=== PATIENT | male | born 1965 | race Caucasian/White ===

== ENCOUNTER 2024-03-06 07:46 | Inpatient (IN) ==
--- OUTSIDE RECORDS SUMMARY | 2024-03-06 08:00 | External Medical Summary | Summary of Care ---
Author Name Unknown Organization [facility] Address [address] [place] [address] Phone [phone] Care Team Providers Care Apartment Maintenance Worker Name Role Phone Julio Syed MD Primary Care Provider + Reason for Visit * Reason Onset Date Comments Appointment 03/03/2024 Encounter Details Date Type Department Care Team ([facility] st Contact Info) Description 03/03/2024 Telephone Family Practice [facility] [address] [facility] [place] [address] Julio Syed MD [address] [facility] [place] [address] Appointment Allergies No known active allergiesdocumented as of this encounter (statuses as of 03/04/2024) Medications Medication Sig Dispensed Refills Start Date End Date Status Sodium Chloride 1 GM Oral Tablet TAKE 1 TABLET BY MOUTH 3 TIMES DAILY 270 Tablet 03/28/2023 Active amLODIPine Besylate 10 MG Oral Tablet (Norvasc)Indications: Essential hypertension with goal blood pressure less than 140/90 Take 1 Tablet by mouth in the morning. 90 Tablet 3 09/19/2023 Active Losartan Potassium 100 MG Oral Tablet (Cozaar)Indications:E ssential hypertension with goal blood pressure less than 140/90 Take 1 Tablet by mouth in the morning. 90 Tablet 3 09/19/2023 Active Urea 15 GM Oral Packet (Ure-Na) Take 15 g by mouth in the morning and 15 g before bedtime. 60 Packet 5 12/14/2023 Active Torsemide 20 MG Oral Tablet (Demadex) Take 1 Tablet by mouth in the morning and 1 Tablet before bedtime. 60 Tablet 5 12/14/2023 Active Potassium Chloride Orquidea ER 20 MEQ Oral Tablet Extended ReleaseIndications:Hy pokalemia Take 1 Tablet by mouth in the morning. Take 3 tablets today-02/01/24-Th en 1 tablet daily.. 33 Tablet 5 02/01/2024 Active documented as of this encounter (statuses as of 03/04/2024) Active Problems Problem Noted Date Diagnosed Date Hyponatremia 11/03/2023 Obstructive sleep apnea 08/08/2023 Overweight (BMI 25.0-29.9) 09/22/2022 Chronic insomnia 09/22/2022 Routine general medical exam ination at a health care facility 03/26/2015 Overview: 2020 colon elsy 5y 12/11/20 Admit to [place] for hyponatremia? 05/06 multiple polyps colonoscopy--tubular adenoma. Elsy 5y HTN, goal below 130/80 03/26/2015 documented as of this encounter (statuses as of 03/04/2024) Resolved Problems Problem Noted Date Diagnosed Date Resolved Date Nocturia 03/05/2020 09/20/2022 Overview: 2-3x/night 2019. Declines Rx documented as of this encounter (statuses as of 03/04/2024) Immunizations Name Administration Dates Next Due COVID-19 mRNA, LNP-s, No Pre serve, 2-Dose Series (HealthTap) 07/05/2021,11/29/2020,11/15/2020 TD - Tetanus/Diptheria (ADULT) 03/22/1995 TDAP (age 10 and older)(Boostrix) 03/26/2015 Zoster Vaccine Recombinant (Shingrix) 06/08/2020 ,03/05/2020 documented as of this encounter Social History Tobacco Use Types Packs/Day Years Used Date Smoking Tobacco: Never Smokeless Tobacco: Current Alcohol Use Standard Drinks/Week Comments Yes 0 (1 standard drink = 0.6 oz pur e alcohol) social. 6pack/weekend PHQ-2 Answer Date Recorded PHQ Adult Total Score 0 09/19/2023 Hunger Vital Sign Answer Date Recorded Within the past 12 months, y ou worried that your food would run out before you got the money to buy more. Never true 09/19/19 24 Within the past 12 months, t he food you bought just didn't last and you didn't have money to get more. Never true 09/19/2023 Childcare Answer Date Recorded Do you feel overwhelmed with taking care of a child, family member or friend? No 09/19/2023 Does your family need help f inding childcare? (Household - for ages 0-17 years) Not on file 09/19/2023 Clothing Answer Date Recorded Have you been unable to get clothing when it was really needed? No 09/19/2023 Is your family able to get c lothes or diapers when needed? (Household - for ages 0-17 years) Not on file 09/19/2023 Personal Safety Answer Date Recorded Do you feel unsafe or have concerns for your saf ety? No 09/19/2023 Do you have concerns for you r family's safety? (Household - for ages 0-17 years) Not on file 09/19/2023 Utilities Answer Date Recorded Do you have trouble paying y our heating, water, or electric bill? No 09/19/2023 Is your family able to pay t he heat, water, or electric bill? (Household - for ages 0-17 years) Not on file 09/19/2023 Does your family have access to good internet? (Household - for ages 0-17 years) Not on file 09/19/2023 Employment Status Answer Date Recorded Are you unemployed or without regular income? No 09/19/2023 Does the household have a re gular source of income? (Household - for ages 0-17 years) Not on file 09/19/2023 Social Connections Answer Date Recorded How often do you feel lonely or isolated from th ose around you? Never 09/19/2023 Financial Resource Strain Answer Date R ecorded Do you have any trouble payi ng for your medications, or do you think you might in the future? No 09/19/2023 Does your family have troubl e paying for medicine? (Household - for ages 0-17 years) Not on file 09/19/2023 Transportation Needs Answer Date Record ed READ ONLY Do you have troubl e getting a ride to medical visits or work? Never True 09/19/2023 Does your family have a hard time getting a ride to doctors visits? (Household - for ages 0-17 years) Not on file 09/19/2023 Has lack of transportation k ept you from medical appointments, meetings, work, or from getting things needed for daily living? Check all that apply. (Adult - for ages 18 years and over) Not on file 09/19/2023 Do you (or your family) have trouble finding or paying for a ride (transportation)? (Household - for ages 0-17 years) Not on file 09/19/2023 Housing Stability Answer Date Recorded Do you currently live in a s helter or have no steady place to sleep at night? No 09/19/2023 READ ONLY Do you think you a re at risk of becoming homeless? No 09/19/2023 Does your family worry about paying for your home or becoming homeless? (Household - for ages 0-17 years) Not on file 0 09/19/2023 Are you homeless or worried that you might be in the future? (Adult - for ages 18 years and over) Not on file Are you (or your family) alessandro eless or worried that you might be in the future? (Household - for ages 0-17 years) Not on file Food Insecurity Answer Date Recorded Do you need food for this week? No 09/19/2023 Are you able to get enough f ood for your family? (Household - for ages 0-17 years) Not on file 09/19/2023 Does your family need food t his week? (Household - for ages 0-17 years) Not on file 09/19/2023 Do you always have enough fo od for your family? (Household - for ages 0-17 years) Not on file 09/19/2023 Sex and Gender Information Value Date Recorded Sex Assigned at Male 04/02/2023 10:43 AM EDT Gender Identity Male 04/02/2023 10:43 AM EDT Sexual Orientation Straight 04/02/2023 10 :43 AM EDT Job Start Date Occupation Industry Not on file Not on file Not on file documented as of this encounter Miscellaneous Notes * Telephone Encounter - Beverly Louise LPN - 03/04/2024 3:48 PM EDT Patient's is calling. Informed of Dr. Syed's message. Verbalized understanding. Placed with MATHIEU Davila on at 9 a.m. * Telephone Encounter - Raegan Odell LPN - 03/04/2024 3:23 PM EDT NO answer on either pt or phone-- LM on both to get labs done lupe and call back to schedule appt. * Telephone Encounter - Jammie Yee OSA - 03/04/2024 1:08 PM EDT FYI. No one has any openings for a few weeks Please advise * Telephone Encounter - Julio Syed MD - 03/04/2024 1:06 PM EDT Call /patient. I don't have openings this week, so would recommend seeing one of my partners that has openings. He has a history of hospitalization for low sodium--let's recheck that this week--can stop by todayfor blood work before 5pm or tomorrow. * Telephone Encounter - Clara Moyer RN - 03/04/2024 12:19 PM EDT Called pt's . States Nahum was restless, had difficulty sleeping last night. Seem unfocused. would like to know if there is something that Dr Syed can do. I asked if pt was safe and said he was ok. * Telephone Encounter - Jammie Yee OSA - 03/04/2024 11:52 AM EDT Nothing open per the call center, please triage and call pt * Telephone Encounter - Mindi Trujillo OSA - 03/03/2024 1:34 PM EDT No Appointments Available Patient declined appointments?: No What Visit Type is needed? Acute If Acute Visit Type is needed, were surrounding clinics offered to patient (Yes/No)? Yes Was patient offered appointments with other available providers (Yes/No)? Yes See Call Details? (Yes or No): No Pt's called. Pt is having high anxiety. Pt can't sleep. Pt only wants to see Dr. Syed. documented in this encounter Plan of Treatment Upcoming Encounters Date Type Department Care Team (Late st Contact Info) Description 03/06/2024 9:00 AM EDT Office Visit Family Practice [facility] [address] [place] [address] Emerita Valencia CRNP [address] [place] [address] 09/02/2024 11:40 AM EST Office Visit Nephrology, [place] [address] [place] [address] Rc Ugalde MD [address] [facility] [place] [address] Scheduled Orders Name Type Priority Associated Diagnoses Orde r Schedule TSH WITH FREE T4 IF INDICATED Lab Routine Hyponatremia Expected: 03/04/2024 (Approximate), Expires: 03/04/2025 BASIC METABOLIC PANEL Lab Routine Hyponatremia Expected: 03/04/2024 (Approximate), Expires: 03/04/2025 Scheduled Procedures Name Priority Associated Diagnoses Date/Ti me COLONOSCOPY FLEXIBLE PROXIMAL DIAGNOSTIC Recall History of colon polyps Health Maintenance Due Date Last Done Comments Hepatitis C Screening 1982 Hepatitis B Vaccine (1 of 3 - 19+ 3-dose series) 1983 Cologuard 2009 Fecal Occult Blood Test 2009 Sigmoidoscopy 2009 COVID-19 Vaccine ( season) 2023 07/05/2021, 11/29/2020, 11/15/2020 Albumin/Creatinine Ratio 02/04/2024 02/03/2021, 08/24 Influenza Vaccine (FLU shot) (#1) 2024 Depression Screening 09/19/2024 09/19/2023 GFR 01/30/2025 01/31/2024, 11/21, 10/09/2023, Additional history exists DTaP,Tdap,and Td Vaccines (2 - Td or Tdap) 03/26/2025 03/26/2015, 03/22/1995 Colonoscopy 05/28/2025 05/28/2020, 12/2019, 05/14/2015, Additional history exists Colorectal Cancer Screening 05/28/2025 Diabetes Screening 01/30/2027 01/31/2024, 0 12/12/2023, 10/09/2023, Additional history exists Lipid Panel 09/24/2028 09/25/2023, 12/22, 03/09/2020, Additional history exists RETIRED - COLONOSCOPY-EVERY 5 YRS AGES 18-100 Discontinued 05/28/2020, 05/28/2020, 05/14/2015, Additional history exists Zoster Vaccines Completed 06/08/2020, 03/05/2020 HPV (Gardasil) Vaccine Aged Out No lo nger eligible based on patient's age to complete this topic MENINGOCOCCAL (MENACTRA/MENVEO) Aged Out No longer eligible based on patient's age to complete this topic Pneumococcal Vaccine: Pediatrics (0 to 5 Years) and At-Risk Patients (6 to 64 Years) Aged Out No longer eligible based on patient's age to complete this topic documented as of this encounter Medical Devices Not on filedocumented as of this encounter Visit Diagnoses Diagnosis Hyponatremia- Primary Hyposmolality and/or hyponatremia documented in this encounter Care Teams Apartment Maintenance Worker Relationship Specialty Start Date End Date Julio Syed MD [address] [place] [address] PCP - General Family Medicine 03/26/15 documented as of this encounter
--- OUTSIDE RECORDS SUMMARY | 2024-03-06 08:00 | External Medical Summary | Summary of Care ---
Author Name Unknown Organization [facility] Address [address] [place] [address] Phone [phone] Care Team Providers Care Loading Dock Helper Name Role Phone Julio Syed MD Primary Care Provider + Reason for Visit * Reason Comments Outpatient Testing Encounter Details Date Type Department Care Team (Late st Contact Info) Description 03/05/2024 7:40 AM EDT Laboratory Laboratory, [facility] [address] [place] [phone] [facility] [address] [place] [address] Hypokalemia; Hyponatremia; MyCode Research Other*[id number] Allergies No known active allergiesdocumented as of this encounter (statuses as of 03/05/2024) Medications Medication Sig Dispensed Refills Start Date [...] as of this encounter (statuses as of 03/05/2024) Active Problems Problem Noted Date Diagnosed Date Hyponatremia 11/03/2023 Obstructive sleep apnea 08/08/2023 Overweight (BMI 25.0-29.9) 09/22/2022 Chronic insomnia 09/22/2022 Routine general medical exam ination at a health care facility 03/26/2015 Overview: 2020 colon elsy 5y 12/11/20 Admit to [place] for hyponatremia? 05/06 multiple polyps colonoscopy--tubular adenoma. Elsy 5y HTN, goal below 130/80 03/26/2015 documented as of this encounter (statuses as of 03/05/2024) Resolved Problems Problem Noted Date Diagnosed Date Resolved Date Nocturia 03/05/2020 09/20/2022 Overview: 2-3x/night 2019. Declines Rx documented as of this encounter (statuses as of 03/05/2024) Immunizations Name Administration Dates Next Due COVID-19 mRNA, LNP-s, No Pre serve, 2-Dose Series (Pfizer) 07/05/2021,11/29/2020,11/15/2020 TDAP (age 10 and older)(Boostrix) 03/26/2015 Zoster [...] on file documented as of this encounter Plan of Treatment Upcoming Encounters Date Type Department Care Team (Late st Contact Info) Description 03/06/2024 9:00 AM EDT Office Visit Family Practice [facility] [address] [place] [address] Emerita Valencia CRNP [address] [place] [address] 09/02/2024 11:40 AM EST Office Visit Nephrology, [place] [address] [facility] [place] [address] Rc Ugalde MD 200 [facility] [place] [address] Pending Results Name Type Priority Associated Diagnoses Date /Time RENAL FUNCTION PANEL Lab Routine Hypokalemia Hyponatremia 03/05/2024 7:44 AM EDT Scheduled Orders Name Type Priority Associated Diagnoses Orde r Schedule MYCODE INITIAL ADULT-PINK Lab Routine MyCode Research Other*[id number] Ordered: 03/05/2024 MYCODE SST1 Lab Routine MyCode Research Other*[id number] Ordered: 03/05/2024 MYCODE SST2 Lab Routine MyCode Research Other*[id number] Ordered: 03/05/2024 Scheduled Procedures Name Priority Associated Diagnoses Date/Ti [...] as of this encounter Visit Diagnoses Diagnosis Hypokalemia Hypopotassemia Hyponatremia Hyposmolality and/or hyponatremia MyCode Research Other*[id number] documented in this encounter Care Teams Loading Dock Helper Relationship Specialty Start Date End Date Julio Syed MD [address] [place] [address] PCP - General Family Medicine 03/26/15 documented as of this encounter
--- OUTSIDE RECORDS SUMMARY | 2024-03-06 08:00 | External Medical Summary ---
Author Name Unknown Address Unknown Organization [id number]:[facility] [place] [address] [place] [address] Laboratory Report Ordering Provider Test Date Status RAMON PERKINS 03/05/2024 07:44:08 Final Observation Date Value Abnormality Reference (Units ) Status BUN 03/05/2024 07:44:08 20 6-20 (mg/dL) Final Creatinine 03/05/2024 07:44:08 0.8 0.6-1.2 (mg/dL) Final Glomerular filtration rate/1.73 sq M.predicted [Volume Rate/Area] in Serum, Plasma or Blood by Creatinine-based formula (CKD-EPI) 03/05/2024 07:44:08 >90 >=60 (mL/min) Final eGFR is calculated based on the CKD-EPI 2020 equation. Sodium 03/05/2024 07:44:08 122 Below low normal 135 -146 (mmol/L) Final Potassium 03/05/2024 07:44:08 4.3 3.5-5.1 (m mol/L) Final Cl 03/05/2024 07:44:08 80 Below low normal 98- 107 (mmol/L) Final CO2 03/05/2024 07:44:08 26 22-32 (mmo l/L) Final Anion gap 03/05/2024 07:44:08 16 Above high normal 7- 15 (mmol/L) Final Glucose 03/05/2024 07:44:08 111 70-120 (mg /dL) Final Calcium 03/05/2024 07:44:08 10.0 8.4-10.2 ( mg/dL) Final Albumin 03/05/2024 07:44:08 5.1 Above high normal 3. 8-5.0 (g/dL) Final Phosphate 03/05/2024 07:44:08 4.4 2.5-4.8 (m g/dL) Final Performing Location [facility] [place] [address] [place] [address]
--- OUTSIDE RECORDS SUMMARY | 2024-03-06 08:01 | External Medical Summary ---
Author Name Unknown Address Unknown Organization [id number]:[facility] [place] - [address] [place] [address] Laboratory Report Ordering Provider Test Date Status OSCAR PERKINSCORA 12/12/2023 09:15:57 Final Observation Date Value Abnormality Reference (Units ) Status Osmolality, Urine 12/12/2023 09:15:57 181 50 -1200 (mOsm/kg) Final Performing Location [facility] [place] - [address] [place] [address]
--- OUTSIDE RECORDS SUMMARY | 2024-03-06 08:01 | External Medical Summary | Summary of Care ---
Author Name Unknown Organization [facility] Address [address] [place] [address] Phone [phone] Care Team Providers Care Grocery Store Associate Name Role Phone Julio Syed MD Primary Care Provider + Reason for Visit * Reason Comments Outpatient Testing Encounter Details Date Type Department Care Team (Late st Contact Info) Description 01/31/2024 8:50 AM EDT Laboratory Laboratory, [facility] [address] [place] [phone] [facility] [address] [place] [address] HTN, goal below 130/80; Hyponatremia Allergies No known active allergiesdocumented as of this encounter (statuses as of 01/31/2024) Medications Medication Sig Dispensed Refills Start Date [...] before bedtime. 60 Tablet 5 12/14/2023 Active documented as of this encounter (statuses as of 01/31/2024) Active Problems Problem Noted Date Diagnosed Date Hyponatremia 11/03/2023 Obstructive sleep apnea 08/08/2023 Overweight (BMI 25.0-29.9) 09/22/2022 Chronic insomnia 09/22/2022 Routine general medical exam ination at a health care facility 03/26/2015 Overview: 2020 colon elsy 5y 12/11/20 Admit to [place] for hyponatremia? 05/06 multiple polyps colonoscopy--tubular adenoma. Elsy 5y HTN, goal below 130/80 03/26/2015 documented as of this encounter (statuses as of 01/31/2024) Resolved Problems Problem Noted Date Diagnosed Date Resolved Date Nocturia 03/05/2020 09/20/2022 Overview: 2-3x/night 2019. Declines Rx documented as of this encounter (statuses as of 01/31/2024) Immunizations Name Administration Dates Next Due COVID-19 mRNA, LNP-s, No Pre serve, 2-Dose Series (WaveCheck) 07/05/2021,11/29/2020,11/15/2020 TD - Tetanus/Diptheria (ADULT) 03/22/1995 TDAP [...] No 09/19/2023 [address] the household have a [facility] source of income? (Household - for ages [...] Care Team (Late st Contact Info) Description 09/02/2024 11:40 AM EST Office Visit Nephdorothy, [place] [address] [place] [address] Rc Ugalde MD [address] [place] [address] Pending Results Name Type Priority Associated Diagnoses Date /Time RENAL FUNCTION PANEL Lab Routine HTN, goal below 130/80 Hyponatremia 01/31/2024 8:37 AM EDT OSMOLALITY, SERUM Lab Routine HTN, goal below 130/80 Hyponatremia 01/31/2024 8:37 AM EDT OSMOLALITY, URINE Lab Routine HTN, goal below 130/80 Hyponatremia 01/31/2024 8:47 AM EDT Scheduled Procedures Name Priority Associated Diagnoses Date/Ti [...] (#1) 2024 Depression Screening 09/19/2024 09/19/2023 GFR 12/11/2024 12/12/2023, 09/20, 09/25/2023, Additional history exists DTaP,Tdap,and Td Vaccines (2 - Td or Tdap) 03/26/2025 03/26/2015, 03/22/1995 Colonoscopy 05/28/2025 05/28/2020, 12/2019, 05/14/2015, Additional history exists Colorectal Cancer Screening 05/28/2025 Diabetes Screening 12/11/2026 12/12/2023, 0 10/09/2023, 09/25/2023, Additional history exists Lipid Panel 09/24/2028 09/25/2023, [...] as of this encounter Visit Diagnoses Diagnosis HTN, goal below 130/80 Unspecified essential hypertension Hyponatremia Hyposmolality and/or hyponatremia documented in this encounter Care Teams Grocery Store Associate Relationship Specialty Start Date End Date Julio Syed MD [address] [place] [address] PCP - General Family Medicine 03/26/15 documented as of this encounter
--- OUTSIDE RECORDS SUMMARY | 2024-03-06 08:01 | External Medical Summary | Summary of Care ---
Author Name Unknown Organization [facility] Address [address] [place] [address] Phone [phone] Care Team Providers Care Computer Meteorologist Name Role Phone Julio Syed MD Primary Care Provider + Reason for Visit * Reason Onset Date Comments Appointment 03/03/2024 Encounter Details Date Type Department Care Team ([facility] st Contact Info) Description 03/03/2024 Telephone Family Practice [facility] [address] [facility] [place] [address] Julio Syed MD [address] [facility] [place] [address] Appointment Allergies No known active allergiesdocumented as [...] 2020 colon elsy 5y 12/11/20 Admit to [place] for hyponatremia? 05/06 multiple polyps colonoscopy--tubular adenoma. Elsy 5y HTN, goal below 130/80 03/26/2015 documented as of this encounter (statuses as of 03/04/2024) Resolved Problems Problem Noted Date Diagnosed Date Resolved Date Nocturia 03/05/2020 09/20/2022 Overview: 2-3x/night 2019. Declines Rx documented as of this encounter (statuses as of 03/04/2024) Immunizations Name Administration Dates Next Due COVID-19 mRNA, LNP-s, No Pre serve, 2-Dose Series (25eight) 07/05/2021,11/29/2020,11/15/2020 TDAP (age 10 and older)(Boostrix) 03/26/2015 [...] encounter Miscellaneous Notes * Telephone Encounter - Raegan Odell LPN [...] Description 09/02/2024 11:40 AM EST Office Visit Nephrology, [place] [address] [facility] [place] [address] Rc Ugalde MD [address] [facility] [place] [address] Scheduled Orders Name Type Priority Associated Diagnoses [...] hyponatremia documented in this encounter Care Teams Computer Meteorologist Relationship Specialty Start Date End Date Julio Syed MD [address] [place] [address] PCP - General Family Medicine 03/26/15 documented as of this encounter
--- OUTSIDE RECORDS SUMMARY | 2024-03-06 08:01 | External Medical Summary ---
Author Name Unknown Address Unknown Organization [id number]:[facility] [place] [address] Laboratory Report Ordering Provider Test Date Status RAMON PERKINS 12/12/2023 09:15:35 Final Observation Date Value Abnormality Reference (Units ) Status BUN 12/12/2023 09:15:35 9 6-20 (mg/dL) Final Creatinine 12/12/2023 09:15:35 0.8 0.6-1.2 (mg/dL) Final Glomerular filtration rate/1.73 sq M.predicted [Volume Rate/Area] in Serum, Plasma or Blood by Creatinine-based formula (CKD-EPI) 12/12/2023 09:15:35 >90 >=60 (mL/min) Final eGFR is calculated based on the CKD-EPI 2020 equation Sodium 12/12/2023 09:15:35 126 Below low normal 135 -146 (mmol/L) Final Potassium 12/12/2023 09:15:35 4.8 3.5-5.1 (m mol/L) Final Cl 12/12/2023 09:15:35 90 Below low normal 98- 107 (mmol/L) Final CO2 12/12/2023 09:15:35 22 22-32 (mmo l/L) Final Anion gap 12/12/2023 09:15:35 14 7-15 (mmol /L) Final Glucose 12/12/2023 09:15:35 90 70-120 (mg /dL) Final Calcium 12/12/2023 09:15:35 9.7 8.4-10.2 ( mg/dL) Final Albumin 12/12/2023 09:15:35 4.9 3.8-5.0 (g /dL) Final Phosphate 12/12/2023 09:15:35 4.4 2.5-4.8 (m g/dL) Final Performing Location [facility] [place] [address]
--- OUTSIDE RECORDS SUMMARY | 2024-03-06 08:01 | External Medical Summary ---
Author Name Unknown Address Unknown Organization [id number]:[facility] [place] - [address] [address] Laboratory Report Ordering Provider Test Date Status RAMON PERKINS 12/12/2023 09:15:57 Final Observation Date Value Abnormality Reference (Units ) Status Sodium, Urine 12/12/2023 09:15:57 25 (mmol/ L) Final Performing Location LAB[facility]ATORY C - [address] [place] [address]
--- OUTSIDE RECORDS SUMMARY | 2024-03-06 08:01 | External Medical Summary ---
Author Name Unknown Address Unknown Organization [id number]:LAB[facility]ATORY [facility] [place] - [address] [place] [address] Laboratory Report Ordering Provider Test Date Status RAMON PERKINS 01/31/2024 08:37:08 Final Observation Date Value Abnormality Reference (Units ) Status BUN 01/31/2024 08:37:08 60 Above high normal 6-20 (mg/dL) Final Creatinine 01/31/2024 08:37:08 1.1 0.6-1.2 (mg/dL) Final Glomerular filtration rate/1.73 sq M.predicted [Volume Rate/Area] in Serum, Plasma or Blood by Creatinine-based formula (CKD-EPI) 01/31/2024 08:37:08 75 >=60 (mL/min) Final eGFR is calculated based on the CKD-EPI 2020 equation Sodium 01/31/2024 08:37:08 132 Below low normal 135 -146 (mmol/L) Final Potassium 01/31/2024 08:37:08 3.0 Below low normal 3.5 -5.1 (mmol/L) Final Cl 01/31/2024 08:37:08 81 Below low normal 98- 107 (mmol/L) Final CO2 01/31/2024 08:37:08 33 Above high normal 22 -32 (mmol/L) Final Anion gap 01/31/2024 08:37:08 18 Above high normal 7- 15 (mmol/L) Final Glucose 01/31/2024 08:37:08 117 70-120 (mg /dL) Final Calcium 01/31/2024 08:37:08 10.5 Above high normal 8. 4-10.2 (mg/dL) Final Albumin 01/31/2024 08:37:08 5.3 Above high normal 3. 8-5.0 (g/dL) Final Phosphate 01/31/2024 08:37:08 3.3 2.5-4.8 (m g/dL) Final Performing Location [facility]ORY [facility] [place] - [address] [place] [address]
--- OUTSIDE RECORDS SUMMARY | 2024-03-06 08:01 | External Medical Summary ---
Author Name Unknown Address Unknown Organization K01:[facility] - [address] [place] [address] Laboratory Report Ordering Provider Test Date Status GREGORIOOSCAR DELANEYCORA 12/12/2023 09:15:35 Final Observation Date Value Abnormality Reference (Units ) Status Osmolality 12/12/2023 09:15:35 260 Below low normal 27 8-305 (mOsm/kg) Final Performing Location [facility] - [address] [place] [address]
--- OUTSIDE RECORDS SUMMARY | 2024-03-06 08:01 | External Medical Summary ---
Author Name Unknown Address Unknown Organization [id number]:LABORATORY [facility] [place] - [address] [place] [address] Laboratory Report Ordering Provider Test Date Status GREGORIOOSCARCORA 12/12/2023 09:15:35 Final Observation Date Value Abnormality Reference (Units ) Status Uric Acid 12/12/2023 09:15:35 3.8 3.4-7.0 (m g/dL) Final Performing Location [facility] - [address] [place] [address]
--- OUTSIDE RECORDS SUMMARY | 2024-03-06 08:01 | External Medical Summary | Summary of Care ---
Author Name Unknown Organization [facility] Address [address] [place] [address] Phone [phone] Care Team Providers Care Commercial Hvac Service Technician Name Role Phone Julio Syed MD Primary Care Provider + Encounter Details Date Type Department Care Team (Late st Contact Info) Description 12/03/2023 Orders Only Outcomes Research Department [address] [place] [address] Latasha Mcdaniel CHRA SAIC Research Other*[id number] Allergies No known active allergiesdocumented as of this encounter (statuses as of 12/03/2023) Medications Medication Sig Dispensed Refills Start Date End Date Status Sodium Chloride 1 GM Oral Tablet TAKE 1 TABLET BY MOUTH 3 TIMES DAILY 270 Tablet 0 03/28/2023 Active amLODIPine Besylate 10 MG Oral Tablet (Norvasc)Indications:E ssential hypertension with goal blood pressure less than 140/90 Take 1 Tablet by mouth in the morning. 90 Tablet 3 09/19/2023 Active Losartan Potassium 100 MG Oral Tablet (Cozaar)Indications:Es sential hypertension with goal blood pressure less than 140/90 Take 1 Tablet by mouth in the morning. 90 Tablet 3 09/19/2023 Active documented as of this encounter (statuses as of 12/03/2023) Active Problems Problem Noted Date Diagnosed Date Hyponatremia 11/03/2023 Obstructive sleep apnea 08/08/2023 Overweight (BMI 25.0-29.9) 09/22/2022 Chronic insomnia 09/22/2022 Routine general medical exam ination at a health care facility 03/26/2015 Overview: 2019 colon elsy 5y 12/11/20 Admit to [place] for hyponatremia? 05/06 multiple polyps colonoscopy--tubular adenoma. Elsy 5y HTN, goal below 130/80 03/26/2015 documented as of this encounter (statuses as of 12/03/2023) Resolved Problems Problem Noted Date Diagnosed Date Resolved Date Nocturia 03/05/2020 09/20/2022 Overview: 2-3x/night 2019. Declines Rx documented as of this encounter (statuses as of 12/03/2023) Immunizations Name Administration Dates Next Due COVID-19 [...] money to get more. Never true 09/19/2023 Sex and Gender Information Value Date [...] Care Team (Late st Contact Info) Description 12/12/2023 8:40 AM EDT Office Visit [facility] [address] [place], [place] [phone] Rc Ugalde MD [address] [place] [address] Scheduled Orders Name Type Priority Associated Diagnoses Orde r Schedule MYCODE SUBSEQUENT ADULT Lab Routine MyCode Research Other*[id number] Every 6 Months for 2 Occurrences starting 12/03/2023 until 12/22/2024 Scheduled Procedures Name Priority Associated Diagnoses Date/Ti me COLONOSCOPY FLEXIBLE PROXIMAL DIAGNOSTIC Recall History of colon polyps Health Maintenance Due Date Last Done Comments Hepatitis C Screening 1982 Hepatitis B (1 of 3 - 19+ 3-dose series) 1983 Cologuard 2009 Fecal Occult Blood Test 2009 Sigmoidoscopy 2009 COVID-19 Vaccine ( season) 2023 07/05/2021, 11/29/2020, 11/15/2020 Albumin/Creatinine Ratio 02/04/2024 02/03/2021, 08/24 Influenza Vaccine (FLU shot) (Season Ended) 2024 Depression Screening 09/19/2024 09/19/2023 GFR 10/08/2024 10/09/2023, 0311/2023, 09/26/2022, Additional history exists DTaP,Tdap,and Td Vaccines (2 - Td or Tdap) 03/26/2025 03/26/2015, 03/22/1995 Colonoscopy 05/28/2025 05/28/2020, 1112/2019, 05/14/2015, Additional history exists Colorectal Cancer Screening 05/28/2025 Diabetes Screening 10/08/2026 10/09/2023, 0 09/25/2023, 09/25/2023, Additional history exists Lipid Panel 09/24/2028 09/25/2023, 12/22, 03/09/2020, Additional history exists RETIRED - COLONOSCOPY-EVERY 5 YRS AGES 18-100 Discontinued 05/28/2020, 05/28/2020, 05/14/2015, Additional history exists Zoster Vaccines Completed 06/08/2020, 03/05/2020 GARDASIL-HPV IMMUNIZATION SERIES Aged Out No longer eligible based on [...] as of this encounter Visit Diagnoses Diagnosis MyCode Research Other*[id number] documented in this encounter Care Teams Commercial Hvac Service Technician Relationship Specialty Start Date End Date Julio Syed MD [address] [place] [id number] PCP - General Family Medicine 03/26/15 documented as of this encounter
--- OUTSIDE RECORDS SUMMARY | 2024-03-06 08:01 | External Medical Summary | Summary of Care ---
Author Name Unknown Organization [facility] Address [address] [place] [address] Phone [phone] Care Team Providers Care Reimbursement Rep Name Role Phone Julio Syed MD Primary Care Provider + Encounter Details Date Type Department Care Team (Late st Contact Info) Description 12/14/2023 Refill Nephrology, [address] [facility] [place] [address] Gregorio Ugalde MD [address] [place] [address] HTN, goal below 130/80*; Hyponatremia Allergies No known active allergiesdocumented as of this encounter (statuses as of 12/14/2023) Medications Medication Sig Dispensed Refills Start Date [...] as of this encounter (statuses as of 12/14/2023) Active Problems Problem Noted Date Diagnosed Date Hyponatremia 11/03/2023 Obstructive sleep apnea 08/08/2023 Overweight (BMI 25.0-29.9) 09/22/2022 Chronic insomnia 09/22/2022 Routine general medical exam ination at a health care facility 03/26/2015 Overview: 2019 colon elsy 5y 12/11/20 Admit to [place] for hyponatremia? 05/06 multiple polyps colonoscopy--tubular adenoma. Elsy 5y HTN, goal below 130/80 03/26/2015 documented as of this encounter (statuses as of 12/14/2023) Resolved Problems Problem Noted Date Diagnosed Date Resolved Date Nocturia 03/05/2020 09/20/2022 Overview: 2-3x/night 2019. Declines Rx documented as of this encounter (statuses as of 12/14/2023) Immunizations Name Administration Dates Next Due COVID-19 [...] encounter Miscellaneous Notes * Telephone Encounter - Gregorio Ugalde MD - 12/14/2023 1:05 PM EDTSigned Prescriptions: Disp Refills Urea 15 GM Oral Packet (Ure-Na) 60 Pac*5 Sig: Take 15 g by mouthin the morning and 15 g before bedtime.Authorizing Provider: GREGORIO UGALDE Torsemide 20 MG Oral Tablet (Demadex) 60 Tab*5 Sig: Take 1 Tablet by mouth in the morning and 1 Tablet before bedtime.Authorizing Provider: GREGORIO UGALDE * Telephone Encounter - Veena Travis LPN - 12/14/2023 12:01 PM EDT Pt is made aware of test results and recommendations Pt has already stopped NaCl tab Pt requesting Rx be sent to [facility] He will contact the office with any problems obtaining Rx ie Ureadue to cost or availability Repeat labs will be done 7-10 days after med changes Orders placed in [facility] lab system Pt will increase food high in potassium as opposed to supplementation and mainatain fluid restriction at a strict 1500 ml daily MyG message sent with these instructions in follow up Rx pended sent to for approval * Telephone Encounter - Veena Travis LPN - 12/14/2023 11:57 AM EDT ----- Message from Gregorio Ugalde MD sent at 12/14/2023 11:34 AM EDT ----- Sodium is low as expected as he is still drinking lot of liquids. As discussed in clinic: Lower fluid limit to 1500 ml per day Will do Urea-na 15 gm bid. Torsemide 20 bid. Advise higher K food and drinks. Has h/o high K so dont want to RX Potassium Supplement. Stop Salt tab. Repeat renal panel and urine osm about 7-10 days after the med start. Getting urea-na can take time. documented in this encounter Plan of Treatment Upcoming Encounters Date Type Department Care Team (Late st Contact Info) Description 09/02/2024 11:40 AM EST Office Visit [facility] [address] [place] [address] Gregorio Ugalde MD [address] [facility] [place] [address] Scheduled Orders Name Type Priority Associated Diagnoses Orde r Schedule RENAL FUNCTION PANEL Lab Routine HTN, goal below 130/80 Hyponatremia Expected: 12/14/2023 (Approximate), Expires: 12/13/2024 OSMOLALITY, URINE Lab Routine HTN, goal below 130/80 Hyponatremia Expected: 12/14/2023 (Approximate), Expires: 12/13/2024 Scheduled Procedures Name Priority Associated Diagnoses Date/Ti [...] Ended) 2024 Depression Screening 09/19/2024 09/19/2023 GFR 12/11/2024 [...] encounter Visit Diagnoses Diagnosis HTN, goal below 130/80- Primary Unspecified essential hypertension Hyponatremia Hyposmolality and/or hyponatremia documented in this encounter Care Teams Reimbursement Rep Relationship Specialty Start Date End Date Julio Syed MD [address] [address] PCP - General Family Medicine 03/26/15 documented as of this encounter
--- OUTSIDE RECORDS SUMMARY | 2024-03-06 08:01 | External Medical Summary ---
Author Name Unknown Address Unknown Organization K01:LAB[facility]ATORY [facility] [place] - [address] [place] [address] Laboratory Report Ordering Provider Test Date Status RAMON PERKINS 01/31/2024 08:47:36 Final Observation Date Value Abnormality Reference (Units ) Status Osmolality, Urine 01/31/2024 08:47:36 280 50 -1200 (mOsm/kg) Final Performing Location [facility]ORY [facility] [place] - [address] [place] [address]
--- OUTSIDE RECORDS SUMMARY | 2024-03-06 08:01 | External Medical Summary ---
Author Name Unknown Address Unknown Organization K09:[facility] [address] [place] [address] Laboratory Report Ordering Provider Test Date Status RAMON PERKINS 12/12/2023 09:15:57 Final Observation Date Value Abnormality Reference (Units ) Status Color of Urine by Auto 12/12/2023 09:15:57 Yellow Light Yellow, Yellow, Dark Yellow Final Clarity, Urine 12/12/2023 09:15:57 Clear Clear Final Glucose [Mass/volume] in Urine by Automated test strip 12/12/2023 09:15:57 Negative Negative (mg/dL) Final Bilirubin.total [Presence] in Urine by Automated test strip 12/12/2023 09:15:57 Negative Negative Final Ketones [Mass/volume] in Urine by Automated test strip 12/12/2023 09:15:57 Negative Negative (mg/dL) Final Specific gravity, Urine 12/12/2023 09:15:57 1.015 1.003-1.030 Final Hemoglobin [Presence] in Urine by Automated test strip 12/12/2023 09:15:57 Negative Negative Final pH, Urine 12/12/2023 09:15:57 7.0 5.0-7.5 (Units) Final Protein [Mass/volume] in Urine by Automated test strip 12/12/2023 09:15:57 Negative Negative (mg/dL) Final Urobilinogen [Mass/volume] in Urine by Automated test strip 12/12/2023 09:15:57 0.2 0.2, 1.0 (mg/dL) Final Nitrite [Presence] in Urine by Automated test strip 12/12/2023 09:15:57 Negative Negative Final Leukocyte esterase [Presence] in Urine by Automated test strip 12/12/2023 09:15:57 Negative Negative Final RBC, Urine 12/12/2023 09:15:57 0-2 0-2 (/HPF) Final WBC, Urine 12/12/2023 09:15:57 0-2 0-2 (/HPF) Final Bacteria [#/area] in Urine sediment by Microscopy high power field 12/12/2023 09:15:57 0-25 0-25 (/HPF) Final Performing Location [facility] [place] [address]
--- OUTSIDE RECORDS SUMMARY | 2024-03-06 08:01 | External Medical Summary | Summary of Care ---
Author Name Unknown Organization [facility] Address [address] [place] [address] Phone [phone] Care Team Providers Care Care Navigator Name Role Phone Julio Syed MD Primary Care Provider + Reason for Visit * Reason Comments Outpatient Testing Encounter Details Date Type Department Care Team (Late st Contact Info) Description 01/31/2024 8:50 AM EDT Laboratory Laboratory, [facility] [address] [place] [phone] [facility] [address] [place] [address] HTN, goal below 130/80; Hyponatremia Allergies No [...] 2020 colon elsy 5y 12/11/20 Admit to [place] for hyponatremia? 05/06 multiple polyps colonoscopy--tubular adenoma. Elsy 5y HTN, goal below 130/80 03/26/2015 documented as of this encounter (statuses as of 01/31/2024) Resolved Problems Problem Noted Date Diagnosed Date Resolved Date Nocturia 03/05/2020 09/20/2022 Overview: 2-3x/night 2019. Declines Rx documented as of this encounter (statuses as of 01/31/2024) Immunizations Name Administration Dates Next Due COVID-19 mRNA, LNP-s, No Pre serve, 2-Dose Series ([employer]) 07/05/2021,11/29/2020,11/15/2020 TD - Tetanus/Diptheria (ADULT) 03/22/1995 TDAP [...] No 09/19/2023 Does the household have a [facility] source of income? (Household - for [...] Neph[place], [place] [address] [place] [address] Rc Ugalde MD [address] [place] [address] Pending Results Name Type Priority Associated Diagnoses [...] hyponatremia documented in this encounter Care Teams Care Navigator Relationship Specialty Start Date End Date Julio Syed MD [address] [place] [address] PCP - General Family Medicine 03/26/15 documented as of this encounter
--- OUTSIDE RECORDS SUMMARY | 2024-03-06 08:01 | External Medical Summary ---
Author Name Unknown Address Unknown Organization K01:[facility] - [address] [place] [address] Laboratory Report Ordering Provider Test Date Status RAMON PERKINS 01/31/2024 08:37:08 Final Observation Date Value Abnormality Reference (Units ) Status Osmolality 01/31/2024 08:37:08 290 278-305 ( mOsm/kg) Final Performing Location [facility] - [address] [place] [address]
--- OUTSIDE RECORDS SUMMARY | 2024-03-06 08:01 | External Medical Summary | Summary of Care ---
Author Name Unknown Organization [facility] Address [address] [place] [address] Phone [phone] Care Team Providers Care Strategy Manager Name Role Phone Julio Syed MD Primary Care Provider + Reason for Visit * Reason Comments Outpatient Testing Encounter Details Date Type Department Care Team ([facility] st Contact Info) Description 12/12/2023 9:20 AM EDT Laboratory Laboratory [facility] [address] [place] [phone] [facility] [address] [place] [address] Chronic hyponatremia Allergies No known active allergiesdocumented as of this encounter (statuses as of 12/12/2023) Medications Medication Sig Dispensed Refills Start Date [...] as of this encounter (statuses as of 12/12/2023) Active Problems Problem Noted Date Diagnosed Date Hyponatremia 11/03/2023 Obstructive sleep apnea 08/08/2023 Overweight (BMI 25.0-29.9) 09/22/2022 Chronic insomnia 09/22/2022 Routine general medical exam ination at a health care facility 03/26/2015 Overview: 2019 colon elsy 5y 12/11/20 Admit to [place] for hyponatremia? 05/06 multiple polyps colonoscopy--tubular adenoma. Elsy 5y HTN, goal below 130/80 03/26/2015 documented as of this encounter (statuses as of 12/12/2023) Resolved Problems Problem Noted Date Diagnosed Date Resolved Date Nocturia 03/05/2020 09/20/2022 Overview: 2-3x/night 2019. Declines Rx documented as of this encounter (statuses as of 12/12/2023) Immunizations Name Administration Dates Next Due COVID-19 mRNA, LNP-s, No Pre serve, 2-Dose Series ([employer]) 07/05/2021,11/29/2020,11/15/2020 TDAP (age 10 and older)(Bo[employer]) 03/26/2015 [...] 09/02/2024 11:40 AM EST Office Visit Nephrology, [place] Rosado [address] [facility] [place], [place] [address] Rc Ugalde MD [address] [facility] [place] [address] Pending Results Name Type Priority Associated Diagnoses Date /Time RENAL FUNCTION PANEL Lab Routine Chronic hyponatremia 12/12/2023 9:15 AM EDT URIC ACID Lab Routine Chronic hyponatremia 12/12/2023 9:15 AM EDT OSMOLALITY, SERUM Lab Routine Chronic hyponatremia 12/12/2023 9:15 AM EDT OSMOLALITY, URINE Lab Routine Chronic hyponatremia 12/12/2023 9:15 AM EDT SODIUM, RANDOM URINE Lab Routine Chronic hyponatremia 12/12/2023 9:15 AM EDT URINALYSIS WITH MICROSCOPIC EXAM Lab Routine Chronic hyponatremia 12/12/2023 9:15 AM EDT Scheduled Procedures Name Priority Associated [...] Depression Screening 09/19/2024 09/19/2023 GFR 10/08/2024 10/09/2023, 03/11/2023, 09/26/2022, Additional history exists DTaP,Tdap,and Td Vaccines [...] as of this encounter Visit Diagnoses Diagnosis Chronic hyponatremia Hyposmolality and/or hyponatremia documented in this encounter Care Teams Strategy Manager Relationship Specialty Start Date End Date Julio Syed MD [address] [place] [address] PCP - General Family Medicine 03/26/15 documented as of this encounter
--- OUTSIDE RECORDS SUMMARY | 2024-03-06 08:01 | External Medical Summary | Summary of Care ---
Author Name Unknown Organization [facility] Address [address] [place] [address] Phone [phone] Care Team Providers Care Stereo Map Plotter Operator Name Role Phone Julio Syed MD Primary Care Provider + Reason for Visit * Reason Onset Date Comments Test Results 02/01/2024 Encounter Details Date Type Department Care Team ([facility] st Contact Info) Description 02/01/2024 Telephone NephrologyFeliz [address] [place] [address] Rc Ugalde MD [address] [place] [address] Test Results Allergies No known active allergiesdocumented as of this encounter (statuses as of 02/01/2024) Medications Medication Sig Dispensed Refills Start Date [...] as of this encounter (statuses as of 02/01/2024) Active Problems Problem Noted Date Diagnosed Date Hyponatremia 11/03/2023 Obstructive sleep apnea 08/08/2023 Overweight (BMI 25.0-29.9) 09/22/2022 Chronic insomnia 09/22/2022 Routine general medical exam ination at a health care facility 03/26/2015 Overview: 2020 colon elsy 5y 12/11/20 Admit to [place] for hyponatremia? 05/06 multiple polyps colonoscopy--tubular adenoma. Elsy 5y HTN, goal below 130/80 03/26/2015 documented as of this encounter (statuses as of 02/01/2024) Resolved Problems Problem Noted Date Diagnosed Date Resolved Date Nocturia 03/05/2020 09/20/2022 Overview: 2-3x/night 2019. Declines Rx documented as of this encounter (statuses as of 02/01/2024) Immunizations Name Administration Dates Next Due COVID-19 mRNA, LNP-s, No Pre serve, 2-Dose Series ([employer]) 07/05/2021,11/29/2020,11/15/2020 TDAP (age 10 and older)(Boostrix) 03/26/2015 [...] encounter Miscellaneous Notes * Telephone Encounter - Carmina Jones RN - 02/01/2024 3:03 PM EDT ----- Message from Rc Ugalde MD sent at 02/01/2024 2:16 PM EDT ----- Sodium is better but potassium is actually quite low. Calcium is also slightly high and bicarb is high. Given this would like to lower the dose of torsemide to 10 mg twice daily if possible to break it in half. If not take 20 mg once daily. Add potassium chloride 60 mEq today and then 20 mEq once daily. Repeat renal panel again on Sunday. Few days is enough to see the change in electrolytes. documented in this encounter Plan of Treatment Upcoming Encounters Date Type Department Care Team (Late st Contact Info) Description 09/02/2024 11:40 AM EST Office Visit [facility] [address] [place] [address] Rc Ugalde MD [address] [place] [address] Scheduled Orders Name Type Priority Associated Diagnoses Orde r Schedule RENAL FUNCTION PANEL Lab Routine Hypokalemia Hyponatremia Expected: 02/06/2024, Expires: 01/31/2025 Scheduled Procedures Name Priority Associated Diagnoses Date/Ti [...] as of this encounter Visit Diagnoses Diagnosis Hypokalemia- Primary Hypopotassemia Hyponatremia Hyposmolality and/or hyponatremia documented in this encounter Care Teams Stereo Map Plotter Operator Relationship Specialty Start Date End Date Julio Syed MD [address] [place] [address] PCP - General Family Medicine 03/26/15 documented as of this encounter
--- OUTSIDE RECORDS SUMMARY | 2024-03-06 08:01 | External Medical Summary | Summary of Care ---
Author Name Unknown Organization [facility] Address [address] [place] [address] Phone [phone] Care Team Providers Care Solar Electric/Photovoltaic Installer Name Role Phone Julio Syed MD Primary Care Provider + Reason for Visit * Reason Comments Return Visit Hypertension Past history hyponat remia * Evaluate & Treat - Unlimited Visits (Within 10 days (routine)) - Pending Review Specialty Diagnoses / Procedures Referred By Contac t Referred To Contact Nephrology Diagnoses Hyponatremia Julio Syed MD [address] [place] [address] Referral ID Status Reason Start Date Expiration Date Visits Requested Visits Authorized [id number] Pending Review Specialty Services Required 11/03/[phone] Encounter Details Date Type Department Care Team (Late st Contact Info) Description 12/12/2023 8:40 AM EDT Office Visit [facility] [address] [place] [address] Rc Ugalde MD [address] [place] [address] Chronic hyponatremia* Allergies No known active allergiesdocumented as of [...] Routine general medical exam ination at a [facility] care facility 03/26/2015 Overview: 2020 colon elsy 5y 12/11/20 Admit to [facility] for hyponatremia? 05/06 multiple polyps colonoscopy--tubular adenoma. Elsy 5y HTN, goal below 130/80 03/26/2015 documented as of this encounter (statuses as of 12/12/2023) Resolved Problems Problem Noted Date Diagnosed Date Resolved Date Nocturia 03/05/2020 09/20/2022 Overview: 2-3x/night 2019. Declines Rx documented as of this encounter (statuses as of 12/12/2023) Immunizations Name Administration Dates Next Due COVID-19 mRNA, LNP-s, No Pre serve, 2-Dose Series (Sharypic) 07/05/2021,11/29/2020,11/15/2020 TDAP (age 10 and older)(Boostrix) 03/26/2015 [...] on file documented as of this encounter Last Filed Vital Signs Vital Sign Reading Time Taken Comments Blood Pressure 139/82 12/12/2023 8:47 AM EDT Pulse 76 12/12/2023 8:47 AM EDT Temperature 36.7 C (98.1 F) 12/12/2023 8:45 AM ED T Respiratory Rate 18 12/12/2023 8:45 AM EDT Oxygen Saturation 99% 12/12/2023 8:45 AM EDT Inhaled Oxygen Concentration - - Weight 89 kg (196 lb 4.8 oz) 12/12/2023 8:45 AM EDT Height - - Body Mass Index 26.62 09/19/2023 11:35 AM EST documented in this encounter Progress Notes * Rc Ugalde MD - 12/12/2023 8:51 AM EDT Subjective: Constantino Andrews is a 55 year old male. Chief Complaint Patient presents with Return Visit Hypertension Past history hyponatremia HPI: 58-year-old male who was noted to have hyponatremia severe type while during vacation in [place]. 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 His beverages include beer coffee water. He has to be outdoor a lot and in hot weather he drinks a lot of liquid. In fact he had to come to the emergency department because of feeling weak after drinking many bottles of water. His sodium was low at 124 after which he was discharged. Since last visit --- lost to follow up. Continues to have hyponatremia as she is still drinking very high amount of liquids. He takes salt tablet but that is not really my advice. no hospital emergency or surgery. He still drinking about 100-120 oz of liquid per day---which includes about 64 oz of water about 24 oz of beer 12 oz coffee 12 oz ice tea. He is taking salt tablet 1 g 2-3 times per day. Appetite is normal and no GI symptoms. Does not have any complaints at this time NSAID No Renal Stone No Herbal Medication No Urinary Complaints No Current Outpatient Medications Medication Sig Dispense Refill Sodium Chloride 1 GM Oral Tablet TAKE 1 TABLET BY MOUTH 3 TIMES DAILY 270 Tablet 0 amLODIPine Besylate 10 MG Oral Tablet (Norvasc) Take 1 Tablet by mouth in the morning. 90 Tablet 3 Losartan Potassium 100 MG Oral Tablet (Cozaar) Take 1 Tablet by mouth in the morning. 90 Tablet 3 No current facility-administered medications for this visit. Past Medical History: Diagnosis Date Chronic insomnia 09/22/2022 Hyponatremia 11/03/2023 INFORMATION systolic click Overweight (BMI 25.0-29.9) 09/22/2022 Routine general medical examination at a health care facility 03/26/2015 Past Surgical History: Procedure Laterality Date COLONOSCOPY, DIAGNOSTIC (RECTUM) 05/14/2015 adenomatous & hyperplastic polyps, repeat 5 yrs/COLONOSCOPY FLEXIBLE PROXIMAL DIAGNOSTIC performed by Elyse Dominguez DO at [facility] COLONOSCOPY, DIAGNOSTIC (RECTUM) 05/28/2020 diverticulosis, repeat 5 yrs / COLONOSCOPY FLEXIBLE PROXIMAL DIAGNOSTIC performed by Elyse Dominguez DO at [facility] INCISION OF EARDRUM 1970/redone 1971 Myringotomy REMOVAL OF ADENOIDS, AGE 12+ 1970/redone 1971 Adenoids Removal, 12+ Y/O REMOVE KNEE CARTILAGE, MED/LATERAL 07/23/2000 Knee meniscectomy, arthroscopic Review of patient's allergies indicates: No Known Allergies Family History Problem Relation Name Age of Onset Heart Disorder Mother 70 [place]. alive. in [place] Heart Disorder Father cad. 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 Social Needs Financial resource strain: Not on file Food insecurity Worry: Never true Inability: Never true Transportation needs Medical: Not on file Non-medical: Not on file Tobacco Use Smoking status: Never Smoker Smokeless tobacco: Current User Substance and Sexual Activity Alcohol use: Yes Comment: social. 6pack/weekend Drug use: No Sexual activity: Yes Partners: Female Comment: . [id number] kids 22& 24. home & local. 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 Fishes up in [facility] 3-4 x/ year Vaping/E-Cigarette Use Vaping/E-Cigarette Use Never User Vaping/E-Cigarette Substances Vaping/E-Cigarette Devices Ambulation: No assisted device Review of Systems: 12 systems reviewed and negative OBJECTIVE: PHYSICAL EXAM: BP 139/82 (BP Site: Right Arm, BP Position: Sitting, BP Cuff Size: Regular) | Pulse 76 | Temp 36.7 C (98.1 F) (Tympanic) | Resp 18 | Wt 89 kg (196 lb 4.8 oz) | SpO2 99% | BMI 26.62 kg/m | BSA 2.13 m General: alert, healthy and no distress Head: Normocephalic, No masses, lesions, tenderness or abnormalities Neck: supple, no JVD Heart: regular rate & rhythm, no murmurs and no gallops Lungs: chest symmetric with normal AP diameter, no chest deformities noted, no chest wall tenderness, lungs clear to auscultation Abdomen: abdomen soft, non-tender, normal bowel sounds and no masses or organomegaly Back: back symmetric, no curvature, no costovertebral angle tenderness, range of motion is normal Extremities: no edema Neuro Exam: alert & oriented x 3 with fluent speech, no focal motor/sensory deficits Skin: skin color, texture, turgor are normal, no rashes or significant lesions BP Readings from Last 4 Encounters: 12/12/23 139/82 09/19/23 152/76 08/08/23 150/80 11/15/23 128/66 Wt Readings from Last 4 Encounters: 12/12/23 89 kg (196 lb 4.8 oz) 09/19/23 88.5 kg (195 lb) 08/08/23 87.5 kg (193 lb) 05/23/23 90.1 kg (198 lb 9.6 oz) Estimated body mass index is 26.62 kg/m as calculated from the following: Height as of 09/19/23: 1.829 m (6'). Weight as of this encounter: 89 kg (196 lb 4.8 oz). Results for CONSTANITNO ANDREWS ( ) as of 02/04/2021 16:00 Ref. Range 03/09/2020 07:39 05/20/2020 13:57 12/17/2020 11:45 01/13/2021 13:45 02/03/2021 08:21 Sodium Latest Ref Range: 135 - 146 mmol/L 131 (L) 132 (L) 131 (L) 131 (L) 132 (L) Potassium Latest Ref Range: 3.5 - 5.1 mmol/L 5.2 (H) 4.3 4.8 4.5 4.9 Chloride Latest Ref Range: 98 - 107 mmol/L 93 (L) 97 (L) 97 (L) 95 (L) 96 (L) CO2 Latest Ref Range: 22 - 32 mmol/L 25 22 23 21 (L) 24 BUN Latest Ref Range: 6 - 20 mg/dL 12 12 12 11 9 Creatinine Latest Ref Range: 0.6 - 1.2 mg/dL 0.8 1.0 0.9 1.0 0.9 Estimated Glomerular Filtration Rate Latest Ref Range: >=60.0 mL/min >60.0 >60.0 >90.0 89.1 >90.0 Anion Gap Latest Ref Range: 7 - 15 mmol/L 13 13 11 15 12 Glucose Latest Ref Range: 70 - 120 mg/dL 99 85 90 92 78 Calcium Latest Ref Range: 8.4 - 10.2 mg/dL 9.9 9.2 9.4 9.1 9.6 Estimated Average Glucose Latest Ref Range: <126 mg/dL 97 Uric Acid Latest Ref Range: 3.4 - 7.0 mg/dL 4.1 Urine osmolarity yesterday was 230 urine sodium 63. Sodium Results: Lab Results Component Value Date/Time SODIUM - [facility] 127 (L) 10/09/2023 10:11 AM SODIUM - [facility] 125 (L) 09/25/2023 01:14 PM SODIUM - [facility] 128 (L) 09/26/2022 07:15 AM SODIUM - [facility] 132 (L) 05/20/2020 01:57 PM SODIUM - [facility] 131 (L) 03/09/2020 07:39 AM SODIUM - [facility] 135 03/27/2015 08:31 AM SODIUM, RANDOM URINE - [facility] 37 08/10/2021 11:52 AM SODIUM, RANDOM URINE - [facility] 63 02/03/2021 08:46 AM [facility] 129 (L) 12/14/2020 04:32 AM [facility] 122 (L) 12/13/2020 05:34 AM [facility] 120 (L) 12/12/2020 01:20 PM ASSESSMENT: Chronic hyponatremia (Primary) 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 It also appears that his severe hyponatremia crisis happens when he is drinking too much fluid when his outdoor. Despite the fact that he has outdoor he really does not need all that liquid his drinking which lowers his serum sodium very acutely and has caused Emergency Department trips. One time sodium droppedto 111 quickly with symptoms and then recently 124 with symptoms. Both episodes to the emergency department was precipitated by more than usual drinking of liquids while working outdoor in hot weather. If he can cut down his total fluid intake by about 50% he should be pretty close to normal. It would be impossible for him to cut down to 1500 mL per day given psychological craving. Currently drinking about 100-120 oz per day and he should limited to 50-60 oz per day and that might be enough to keep his sodium a decent level. Treatment of hyponatremia is almost entirely driven by fluid restriction. In his case salt tablet does not work and is actually probably making situation worse. Will do labs as below today His management will be done as below: Fluid restriction-- to- 1500 m-L per day--- this is almost 90% of the management Urea 15 g twice daily Lasix 20 mg twice daily. Stop Salt tablet. Will do the prescriptions after the results come back I had an honest discussion with the patient and it does not appear that he is willing/capable to really cut down the fluid. If he can not do that we will have to use more Lasix to lower the urine osmolarity and really dilute the urine. Taking salt tablet is not a solution here as this is not a lack of salt problem but excessive water problem. Explained in detail to patient that this is not a 1 time thing and they have to continue with the fluid limit long-term as serum sodium can drop from normal to super low very quickly within hours if he drinks a lot of liquids. - RENAL FUNCTION PANEL; Future; Expected date: 12/12/2023 - OSMOLALITY, URINE; Future; Expected date: 12/12/2023 - SODIUM, RANDOM URINE; Future; Expected date: 12/12/2023 - URINALYSIS WITH MICROSCOPIC EXAM; Future; Expected date: 12/12/2023 - URIC ACID; Future; Expected date: 12/12/2023 - OSMOLALITY, SERUM; Future; Expected date: 12/12/2023 Follow Up: Return in about 6 months (around 06/13/2024) for Clinic Visit. | For: Clinic Visit Rc Ugalde MD documented in this encounter Nursing Notes * Veena Travis LPN - 12/12/2023 8:42 AM EDT Patient identified by verbal name and date of . Return visit Last seen 06/10/22 No recent in patient hospital stays or ED visits No surgery Denies SOB or lower extremity edema Last labs 10/09/23 BMP PCP Last labs from our office 06/10/22 Pt does not monitor BP at home documented in this encounter Plan of Treatment Upcoming Encounters Date Type Department Care Team (Late st Contact Info) Description 09/02/2024 11:40 AM EST Office Visit Nephrology, [facility] [address] [place] [id number] Rc Ugalde MD [address] [place] [id number] Pending Results Name Type Priority Associated Diagnoses Date /Time RENAL FUNCTION PANEL Lab Routine Chronic hyponatremia 12/12/2023 9:15 AM EDT OSMOLALITY, URINE Lab Routine Chronic hyponatremia 12/12/2023 9:15 AM EDT SODIUM, RANDOM URINE Lab Routine Chronic hyponatremia 12/12/2023 9:15 AM EDT URIC ACID Lab Routine Chronic hyponatremia 12/12/2023 9:15 AM EDT OSMOLALITY, SERUM Lab Routine Chronic hyponatremia 12/12/2023 9:15 AM EDT Scheduled Orders Name Type Priority Associated Diagnoses Orde r Schedule RENAL FUNCTION PANEL Lab Routine Chronic hyponatremia Expected: 12/12/2023 (Approximate), Expires: 06/09/2024 OSMOLALITY, URINE Lab Routine Chronic hyponatremia Expected: 12/12/2023 (Approximate), Expires: 06/09/2024 SODIUM, RANDOM URINE Lab Routine Chronic hyponatremia Expected: 12/12/2023 (Approximate), Expires: 06/09/2024 URIC ACID Lab Routine Chronic hyponatremia Expected: 12/12/2023 (Approximate), Expires: 06/09/2024 OSMOLALITY, SERUM Lab Routine Chronic hyponatremia Expected: 12/12/2023 (Approximate), Expires: 06/09/2024 Scheduled Procedures Name Priority Associated Diagnoses Date/Ti [...] Depression Screening 09/19/2024 09/19/2023 GFR 10/08/2024 10/09/2023, 11/2023, 09/26/2022, Additional history exists DTaP,Tdap,and Td Vaccines [...] Not on filedocumented as of this encounter Results * URINALYSIS WITH MICROSCOPIC EXAM (12/12/2023 9:15 AM EDT) Color, Urine Yellow Light Yellow, Yellow, Dark Yellow 12/12/2023 9:32 AM EDT [facility]- Clarity, Urine Clear Clear 12/12/2023 9:32 AM EDT [facility]- Glucose, Urine Negative Negative mg/dL 12/12/2023 9:32 AM EDT [facility]- Bilirubin, Urine Negative Negative 12/12/2023 9:32 AM EDT [facility]- Ketone, Urine Negative Negative mg/dL 12/12/2023 9:32 AM EDT [facility]- Specific [place], Urine 1.015 1.003 - 1.030 12/12/2023 9:32 AM EDT [facility]- Blood, Urine Negative Negative 12/12/2023 9:32 AM EDT [facility]- pH, Urine 7.0 5.0 - 7.5 Units 12/12/2023 9:32 AM EDT [facility]- Protein, Urine Negative Negative mg/dL 12/12/2023 9:32 AM EDT [facility] Urobilinogen, Urine 0.2 0.2, 1.0 mg/dL 12/12/2023 9:32 AM EDT [facility] Nitrite, Urine Negative Negative 12/12/2023 9:32 AM EDT [facility] Esterase, Urine Negative Negative 12/12/2023 9:32 AM EDT [facility] RBC, Urine 0-2 0 - 2 /HPF 12/12/2023 9:32 AM EDT [facility] WBC, Urine 0-2 0 - 2 /HPF 12/12/2023 9:32 AM EDT [facility] Bacteria, Urine 0-25 0 - 25 /HPF 12/12/2023 9:32 AM EDT [facility] Urine Non-blood Collection / Unknown 12/12/2023 9:15 AM EDT 12/12/2023 9:15 AM EDT Rc Ugalde MD LAB URINE ORDERABLES [facility] [address] [place] [id number] documented in this encounter Visit Diagnoses Diagnosis Chronic hyponatremia- Primary Hyposmolality and/or hyponatremia documented in this encounter Care Teams Solar Electric/Photovoltaic Installer Relationship Specialty Start Date End Date Julio Syed MD [address] [place] [address] PCP - General Family Medicine 03/26/15 documented as of this encounter"
--- OUTSIDE RECORDS SUMMARY | 2024-03-06 08:01 | External Medical Summary | Summary of Care ---
Author Name Unknown Organization [facility] Address [address] [place] [address] Phone [phone] Care Team Providers Care Mohs Surgeon/General Dermatologist Name Role Phone Julio Syed MD Primary Care Provider + Reason for Visit * Reason Onset Date Comments Mycode Lab Reorder 03/04/2024 Encounter Details Date Type Department Care Team (Late st Contact Info) Description 03/04/2024 Orders Only Outcomes Research Department [address] [place] [address] Karen Ledbetter CHRA MyCode Research Other*[id number]* Allergies No known active allergiesdocumented as of [...] 2020 colon elsy 5y 12/11/20 Admit to [place] for hyponatremia? 05/06 multiple polyps colonoscopy--tubular adenoma. Elsy 5y HTN, goal below 130/80 03/26/2015 documented as of this encounter (statuses as of 03/04/2024) Resolved Problems Problem Noted Date Diagnosed Date Resolved Date Nocturia 03/05/2020 09/20/2022 Overview: 2-3x/night 2019. Declines Rx documented as of this encounter (statuses as of 03/04/2024) Immunizations Name Administration Dates Next Due COVID-19 mRNA, LNP-s, No Pre serve, 2-Dose Series (Siftit) 07/05/2021,11/29/2020,11/15/2020 TDAP (age 10 and older)(Boostrix) 03/26/2015 [...] 09/19/2023 Does the household have a re lar source of income? (Household - for ages [...] on file documented as of this encounter Progress Notes * Karen Ledbetter CHRA - 03/04/2024 10:35 AM EDT MyCode lab reordered. documented in this encounter Plan of Treatment Upcoming Encounters Date Type Department Care Team (Darwin guzman Contact Info) Description 09/02/2024 11:40 AM EST Office Visit [facility] [address] [place], [place] [address] Rc Ugalde MD [address] [place] [address] Scheduled Orders Name Type Priority Associated Diagnoses Orde r Schedule MYCODE INITIAL ADULT Lab Routine [facility] Research Other*[id number] Expected: 03/04/2024 (Approximate), Expires: 03/24/2025 Scheduled Procedures Name Priority Associated Diagnoses Date/Ti [...] this encounter Visit Diagnoses Diagnosis My[facility] Research Other*[id number]- Primary documented in this encounter Care Teams Mohs Surgeon/General Dermatologist Relationship Specialty Start Date End Date Julio Syed MD [address] [place] [address] PCP - General Family Medicine 03/26/15 documented as of this encounter
--- OUTSIDE RECORDS SUMMARY | 2024-03-06 08:01 | External Medical Summary | Summary of Care ---
Author Name Unknown Organization [facility] Address [address] [place] [address] Phone [phone] Care Team Providers Care Paper Products Printer Name Role Phone Julio Syed MD Primary Care Provider + Encounter Details Date Type Department Care Team (Late st Contact Info) Description 12/18/2023 Orders Only PATIENT PORTAL DO NOT DELETE THIS DEPT USED BY [place] [id number] Allergies No known active allergiesdocumented as of this encounter (statuses as of 12/18/2023) Medications Medication Sig Dispensed Refills Start Date [...] as of this encounter (statuses as of 12/18/2023) Active Problems Problem Noted Date Diagnosed Date Hyponatremia 11/03/2023 Obstructive sleep apnea 08/08/2023 Overweight (BMI 25.0-29.9) 09/22/2022 Chronic insomnia 09/22/2022 Routine general medical exam ination at a health care facility 03/26/2015 Overview: 2019 colon elsy 5y 12/11/20 Admit to [place] for hyponatremia? 05/06 multiple polyps colonoscopy--tubular adenoma. Elsy 5y HTN, goal below 130/80 03/26/2015 documented as of this encounter (statuses as of 12/18/2023) Resolved Problems Problem Noted Date Diagnosed Date Resolved Date Nocturia 03/05/2020 09/20/2022 Overview: 2-3x/night 2019. Declines Rx documented as of this encounter (statuses as of 12/18/2023) Immunizations Name Administration Dates Next Due COVID-19 mRNA, LNP-s, No Pre serve, 2-Dose Series (CardMunch) 07/05/2021,11/29/2020,11/15/2020 TDAP (age 10 and older)(Boostrix) 03/26/2015 [...] Office Visit [facility] [address] [place] [address] Rc Ugalde MD [address] [place] [address] Scheduled Procedures Name Priority Associated Diagnoses Date/Ti [...] Not on filedocumented as of this encounter Care Teams Paper Products Printer Relationship Specialty Start Date End Date Julio Syed MD [address] [place] [address] PCP - General Family Medicine 03/26/15 documented as of this encounter
--- OUTSIDE RECORDS SUMMARY | 2024-03-06 08:02 | External Medical Summary | Summary of Care ---
Author Name Unknown Organization [facility] Address [address] [place] [address] Phone [phone] Care Team Providers Care Flocculator Operator Name Role Phone Julio Syed MD Primary Care Provider + Reason for Visit * Reason Comments Outpatient Testing Encounter Details Date Type Department Care Team (Late st Contact Info) Description 10/09/2023 11:20 AM EDT Laboratory Laboratory, [facility] [address] [place] [phone] [facility] [address] [place] [address] Screening for diabetes mellitus Allergies No known active allergiesdocumented as of this encounter (statuses as of 10/09/2023) Medications Medication Sig Dispensed Refills Start Date [...] as of this encounter (statuses as of 10/09/2023) Active Problems Problem Noted Date Diagnosed Date Obstructive sleep apnea 08/08/2023 Overweight (BMI 25.0-29.9) 09/22/2022 Chronic insomnia 09/22/2022 Routine general medical exam ination at a health care facility 03/26/2015 Overview: 2019 colon elsy 5y 12/11/20 Admit to [place] for hyponatremia? 05/06 multiple polyps colonoscopy--tubular adenoma. Elsy 5y HTN, goal below 130/80 03/26/2015 documented as of this encounter (statuses as of 10/09/2023) Resolved Problems Problem Noted Date Diagnosed Date Resolved Date Nocturia 03/05/2020 09/20/2022 Overview: 2-3x/night 2019. Declines Rx documented as of this encounter (statuses as of 10/09/2023) Immunizations Name Administration Dates Next Due COVID-19 [...] Care Team (Late st Contact Info) Description 11/27/2023 9:00 AM EDT [facility] [address] [place] [phone] Amanda Blankenship CRNP [address] [place] [address] Pending Results Name Type Priority Associated Diagnoses Date /Time BASIC METABOLIC PANEL Lab Routine Screening for diabetes mellitus 10/09/2023 10:11 AM EDT Scheduled Procedures Name Priority Associated Diagnoses Date/Ti me COLONOSCOPY FLEXIBLE PROXIMAL DIAGNOSTIC Recall History of colon polyps Health Maintenance Due Date Last Done Comments Hepatitis C Screening 1982 Hepatitis B (1 of 3 - 19+ 3-dose series) 1983 COVID-19 Vaccine (2022- season) 2023 07/05/2021, 11/29/2020, 11/15/2020 Influenza Vaccine (FLU shot) (#1) 2023 Albumin/Creatinine Ratio 02/04/2024 02/03/2021, 08/24 Depression Screening 09/19/2024 09/19/2023 GFR 09/24/2024 09/25/2023, 03/0 01/2023, 08/10/2021, Additional history exists DTaP,Tdap,and Td Vaccines (2 - Td or Tdap) 03/26/2025 03/26/2015, 03/22/1995 COLONOSCOPY-EVERY 5 YRS AGES 18-100 05/28/2025 05/28/2020, 05/28/2020, 05/14/2015, Additional history exists Diabetes Screening 09/24/2026 09/25/2023, 0 09/25/2023, 09/26/2022, Additional history exists Lipid Panel 09/24/2028 09/25/2023, 12/22, 03/09/2020, Additional history exists Zoster Vaccines Completed 06/08/2020, [...] as of this encounter Visit Diagnoses Diagnosis Screening for diabetes mellitus documented in this encounter Care Teams Flocculator Operator Relationship Specialty Start Date End Date Julio Syed MD [address] [place] [address] PCP - General Family Medicine 03/26/15 documented as of this encounter
--- OUTSIDE RECORDS SUMMARY | 2024-03-06 08:02 | External Medical Summary | Summary of Care ---
Author Name Unknown Organization [facility] Address [address] [place] [address] Phone [phone] Care Team Providers Care Manager University Name Role Phone Julio Syed MD Primary Care Provider + Reason for Referral * Evaluate & Treat - Unlimited Visits (Within 10 days (routine)) - Pending Review Specialty Diagnoses / Procedures Referred By Mary Ellen woodward Referred To Contact Nephrology Diagnoses Hyponatremia Julio Syed MD [address] [place] [address] Referral ID Status Reason Start Date Expiration Date Visits Requested Visits Authorized [id number] Pending Review Specialty Services Required 11/03/[phone] Question Answer Referral Priority Within 10 days (routine) Where should this appointment be scheduled? [facility] What condition is this patient being seen for? Electrolyte Problem Comments Hx hyponatremia. Hospitalized in 2020 in [place] for this. Please eval/tx. Reports 6 pack on weekends. Reason for Visit * Reason Onset Date Comments Test Results 11/03/2023 Encounter Details Date Type Department Care Team (Late st Contact Info) Description 11/03/2023 Telephone Family Practice [facility] [address] [facility] [place] [address] Julio Syed MD [address] [employer] [facility] [place] [id number] Test Results Allergies No known active allergiesdocumented as of this encounter (statuses as of 11/06/2023) Medications Medication Sig Dispensed Refills Start Date [...] as of this encounter (statuses as of 11/06/2023) Active Problems Problem Noted Date Diagnosed Date Hyponatremia 11/03/2023 Obstructive sleep apnea 08/08/2023 Overweight (BMI 25.0-29.9) 09/22/2022 Chronic insomnia 09/22/2022 Routine general medical exam ination at a health care facility 03/26/2015 Overview: 2019 colon elsy 5y 12/11/20 Admit to [place] for hyponatremia? 05/06 multiple polyps colonoscopy--tubular adenoma. Elsy 5y HTN, goal below 130/80 03/26/2015 documented as of this encounter (statuses as of 11/06/2023) Resolved Problems Problem Noted Date Diagnosed Date Resolved Date Nocturia 03/05/2020 09/20/2022 Overview: 2-3x/night 2019. Declines Rx documented as of this encounter (statuses as of 11/06/2023) Immunizations Name Administration Dates Next Due COVID-19 mRNA, LNP-s, No Pre serve, 2-Dose Series ([employer]) 07/05/2021,11/29/2020,11/15/2020 TDAP (age 10 and older)(Boostrix) 03/26/2015 [...] encounter Miscellaneous Notes * Telephone Encounter - Diana Garza LPN - 11/06/2023 12:33 PM EDT Spoke with patient. Notified of below. * Telephone Encounter - Jammie Yee OSA - 11/05/2023 9:35 AM EDT FYI-pt scheduled his nephro appt but not sure he's aware of message * Telephone Encounter - Julio Syed MD - 11/03/2023 3:35 PM EDT Nursing--please let pt know his sodium levels remain very low, so I'd like him to see our kidney specialists, as they are the experts in this. Referral signed. Cutting back on alcohol use may help--would do max 2 drinks /day, less is better. documented in this encounter Plan of Treatment Upcoming Encounters Date Type Department Care Team (Late st Contact Info) Description 11/27/2023 9:00 AM EDT Office Visit Sleep Disorders Ctr [facility] [address] [facility] [place] [phone] Amanda Blankenship CRNP [address] [place] [address] 11/30/2023 1:40 PM EDT Office Visit Nephrology, Feliz Rosado [address] [facility] [place] [address] Rc Ugalde MD [address] [facility] [place] [address] Scheduled Procedures Name Priority Associated Diagnoses Date/Ti me COLONOSCOPY FLEXIBLE PROXIMAL DIAGNOSTIC Recall History of colon polyps Scheduled Referrals Name Type Priority Associated Diagnoses Orde r Schedule NEPHROLOGY REFERRAL OP Referral Within 10 days (routine) Hyponatremia Ordered: 11/03/2023 Health Maintenance Due Date Last Done Comments Hepatitis C Screening 1983 Hepatitis B (1 of 3 - 19+ 3-dose series) 1983 COVID-19 Vaccine ( season) 2023 07/05/2021, 11/29/2020, 11/15/2020 Albumin/Creatinine Ratio 02/04/2024 02/03/2021, 08/24 Influenza Vaccine (FLU shot) (Season Ended) 2024 Depression Screening 09/19/2024 09/19/2023 GFR 10/08/2024 10/09/2023, 03/0 11/2023, 09/26/2022, Additional history exists DTaP,Tdap,and Td Vaccines (2 - Td or Tdap) 03/26/2025 03/26/2015, 03/22/1995 COLONOSCOPY-EVERY 5 YRS AGES 18-100 05/28/2025 05/28/2020, 05/28/2020, 05/14/2015, Additional history exists Diabetes Screening 10/08/2026 10/09/2023, 0 09/25/2023, 09/25/2023, [...] hyponatremia documented in this encounter Care Teams Manager University Relationship Specialty Start Date End Date Julio Syed MD [address] [place] [address] PCP - General Family Medicine 03/26/15 documented as of this encounter
--- OUTSIDE RECORDS SUMMARY | 2024-03-06 08:02 | External Medical Summary | Summary of Care ---
Author Name Unknown Organization [facility] Address [address] [place] [address] Phone [phone] Care Team Providers Care Chicken Tender Name Role Phone Julio Syed MD Primary Care Provider + Reason for Visit * Reason Onset Date Comments Apnea Follow-up 10/01/2023 30 Day PAP Compl iance-Request to return CPAP Unit Encounter Details Date Type Department Care Team (Late st Contact Info) Description 10/01/2023 Telephone Sleep Lab [facility] [address] [facility] [place] [address] Jeyson Grimes, [employer] Apnea Follow-up (30 Day PAP Compliance-Req... Allergies No known active allergiesdocumented as of this encounter (statuses as of 10/01/2023) Medications Medication Sig Dispensed Refills Start Date [...] as of this encounter (statuses as of 10/01/2023) Active Problems Problem Noted Date Diagnosed Date Obstructive sleep apnea 08/08/2023 Overweight (BMI 25.0-29.9) 09/22/2022 Chronic insomnia 09/22/2022 Routine general medical exam ination at a health care facility 03/26/2015 Overview: 2019 colon elsy 5y 12/11/20 Admit to [facility] for hyponatremia? 05/06 multiple polyps colonoscopy--tubular adenoma. Elsy 5y HTN, goal below 130/80 03/26/2015 documented as of this encounter (statuses as of 10/01/2023) Resolved Problems Problem Noted Date Diagnosed Date Resolved Date Nocturia 03/05/2020 09/20/2022 Overview: 2-3x/night 2019. Declines Rx documented as of this encounter (statuses as of 10/01/2023) Immunizations Name Administration Dates Next Due COVID-19 mRNA, LNP-s, No Pre serve, 2-Dose Series ([employer]) 07/05/2021,11/29/2020,11/15/2020 TD - Tetanus/Diptheria (ADULT) 03/22/1995 TDAP [...] encounter Miscellaneous Notes * Telephone Encounter - Kiki Nelson, SENA - 10/01/2023 8:23 AM EDT Unit is still under rental, ok for pt to return * Telephone Encounter - Jeyson Grimes, ROBIN - 10/01/2023 7:40 AM EDT AutoPAP COMPLIANCE: We have received a Poor compliance download from [facility] on 10/01/2023. It shows a 0% of use over 4 hours from 08/31/2023 to 09/29/2023. Average AHI of 0.5 with minimal leak. The pressure at the 95th percentile is 14.3 cmH2O. This report will be scanned into the chart. Constantino Crowell has not worn the pap unit since 08/31/2023. Cpap setting change were made on 09/13/2023 but he never wore the unit after the changes were made. SW for Constantino Crowell regarding his low PAP compliance. I asked him to let me know what I can doto help improve the compliance. He stated that the cpap machine is not going to work out and he just wants to return it. He said he just cannot tolerate it and he feels there is nothing that can be done to help him wear it. I offered to have him followup with the provider but he declined. He said he just wants to return it. Constantino Crowell has chosen to terminate his physician prescribed use of Positive Airway Pressure therapy via a PAP machine. The provider will be made aware of the patient's decision to terminate PAP therapy. Ale Swanson. Can Constantino Crowell return his pap unit? Paul Osorio documented in this encounter Plan of Treatment Upcoming Encounters Date Type Department Care Team (Late st Contact Info) Description 11/27/2023 9:00 AM EDT Office Visit Sleep Disorders Ctr [facility] [address] [place] [phone] Amanda Blankenship CRNP [address] [place] [address] Scheduled Procedures Name Priority Associated Diagnoses Date/Ti me COLONOSCOPY FLEXIBLE PROXIMAL DIAGNOSTIC Recall History of colon polyps Health Maintenance Due Date Last Done Comments Hepatitis C Screening 1983 Hepatitis B (1 of 3 - 19+ 3-dose series) 1983 COVID-19 Vaccine (4 - season) 2023 07/05/2021, 11/29/2020, 11/15/2020 Influenza Vaccine (FLU shot) (#1) 2023 Albumin/Creatinine Ratio 02/04/2024 02/03/2021, 08/24 Depression Screening 09/19/2024 09/19/2023 GFR 09/24/2024 09/25/2023, 01/2023, 08/10/2021, Additional history exists DTaP,Tdap,and Td [...] filedocumented as of this encounter Care Teams Chicken Tender Relationship Specialty Start Date End Date Julio Syed MD [address] [place] [id number] PCP - General Family Medicine 03/26/15 documented as of this encounter
--- OUTSIDE RECORDS SUMMARY | 2024-03-06 08:02 | External Medical Summary ---
Author Name Unknown Address Unknown Organization K01:[facility] - [address] [facility] [id number] Laboratory Report Ordering Provider Test Date Status VAISHNAVI MURRAY 09/25/2023 13:14:45 Final Observation Date Value Abnormality Reference (Units ) Status HbA1C 09/25/2023 13:14:45 5.2 4.0-5.6 (% ) Final The use of HbA1c to monitor glycemic status is based on normal hemoglobin and HbA composition. This test should not be used in patients with abnormal hemoglobin that affects the half life of the red blood cell or the in vivo glycation rates. Glucose, estimated average 09/25/2023 13:14:45 103 <126 (mg/dL) Final Performing Location LABORATORY [facility] - [address] [place] [address]
--- OUTSIDE RECORDS SUMMARY | 2024-03-06 08:02 | External Medical Summary | Summary of Care ---
Author Name Unknown Organization [facility] Address [address] [place] [address] Phone [phone] Care Team Providers Care Environmental Sustainability Manager Name Role Phone Julio Syed MD Primary Care Provider + Reason for Visit * Reason Onset Date Comments Durable Medical Equipment 10/05/2023 Autopa p Return Encounter Details Date Type Department Care Team ([facility] st Contact Info) Description 10/05/2023 Telephone Sleep Lab [facility] [address] [place] [address] Jeyson Grimes, DIGITAL MEDIA MANAGER Durable Medical Equipment (Autopap Return ) Allergies No known active allergiesdocumented as of this encounter (statuses as of 10/05/2023) Medications Medication Sig Dispensed Refills Start Date [...] as of this encounter (statuses as of 10/05/2023) Active Problems Problem Noted Date Diagnosed Date Obstructive sleep apnea 08/08/2023 Overweight (BMI 25.0-29.9) 09/22/2022 Chronic insomnia 09/22/2022 Routine general medical exam ination at a health care facility 03/26/2015 Overview: 2019 colon elsy 5y 12/11/20 Admit to [place] for hyponatremia? 05/06 multiple polyps colonoscopy--tubular adenoma. Elsy 5y HTN, goal below 130/80 03/26/2015 documented as of this encounter (statuses as of 10/05/2023) Resolved Problems Problem Noted Date Diagnosed Date Resolved Date Nocturia 03/05/2020 09/20/2022 Overview: 2-3x/night 2019. Declines Rx documented as of this encounter (statuses as of 10/05/2023) Immunizations Name Administration Dates Next Due COVID-19 mRNA, LNP-s, No Pre serve, 2-Dose Series ([employer]) 07/05/2021,11/29/2020,11/15/2020 TD - Tetanus/Diptheria (ADULT) 03/22/1995 TDAP [...] encounter Miscellaneous Notes * Telephone Encounter - Jeyson Grimes, DIGITAL MEDIA MANAGER - 10/05/2023 8:32 AM EDT Constantino Crowell came into the [facility] at 0800 today and returned his [employer]med Airsense 10 serial number [id number]. Patient signed returned pap form. * Telephone Encounter - Jeyson Grimes, ROBIN - 10/05/2023 8:29 AM EDT Images from the original note were not included. e 10/01/23 7:51 AM Note AutoPAP COMPLIANCE: We have received a Poor compliance download from [facility] on 10/01/2023. It shows a 0% [...] Can Constantino Crowell return his pap unit? Thanks, Paul 10/01/23 7:51 AM You routed this conversation to Kiki Nelson, Smita Judge, Amanda Faria CRNP Burkhardt, Amy E, SENA BAILON 10/01/23 8:23 AM Note Unit is still under rental, ok for pt to return documented in this encounter Plan of Treatment Upcoming Encounters Date Type Department Care Team (Late st Contact Info) Description 11/27/2023 9:00 AM EDT Office Visit Sleep Disorders Ctr [facility] [address] [place] [phone] Amanda Blankenship CRNP [address] [place] [address] Scheduled Procedures Name Priority Associated Diagnoses Date/Ti [...] filedocumented as of this encounter Care Teams Environmental Sustainability Manager Relationship Specialty Start Date End Date Julio Syed MD [address] [place] [address] PCP - General Family Medicine 03/26/15 documented as of this encounter
--- OUTSIDE RECORDS SUMMARY | 2024-03-06 08:02 | External Medical Summary | Summary of Care ---
Author Name Unknown Organization [facility] Address [address] [place] [address] Phone [phone] Care Team Providers Care Computer Programmer Analyst Name Role Phone Julio Syed MD Primary Care Provider + Reason for Referral * Evaluate & Treat - Unlimited Visits (Within 10 days (routine)) - Pending Review Specialty Diagnoses / Procedures Referred By Mary Ellen woodward Referred To Contact Orthopaedic Surgery / Orthopedics Diagnoses Effusion of left knee Julio Syed MD [address] [employer] [facility] [place] [address] Referral ID Status Reason Start Date Expiration Date Visits Requested Visits Authorized [id number] Pending Review Specialty Services Required 09/19/[phone] Question Answer Referral Priority Within 10 days (routine) Where should this appointment be scheduled? [facility] What body part is the patient being seen for? Thigh/Knee What condition is the patient being seen for? Sprain/Strain/Tear/Other Comments Left knee effusion. Reason for Visit * Reason Comments Physical-Exam Yearly physical Encounter Details Date Type Department Care Team (Late st Contact Info) Description 09/19/2023 11:20 AM EST Office Visit [facility] [address] [place] [address] Julio Syed MD [address] [place] [address] Routine general medical examination at a health care facility*; Essential hypertension with goal blood pressure less than 140/90; Lipid screening; Screening for diabetes mellitus; Effusion of left knee; Screening for prostate cancer; Obstructive sleep apnea Allergies No known active allergiesdocumented as of this encounter (statuses as of 09/19/2023) Medications Medication Sig Dispensed Refills Start Date End Date Status Sodium Chloride 1 GM Oral Tablet TAKE 1 TABLET BY MOUTH 3 TIMES DAILY 270 Tablet 0 03/28/2023 Active amLODIPine Besylate 10 MG Oral Tablet (Norvasc)Indicatio ns:Essential hypertension with goal blood pressure less than 140/90 Take 1 Tablet by mouth in the morning. 90 Tablet 3 09/19/2023 Active Losartan Potassium 100 MG Oral Tablet (Cozaar)Indication s:Essential hypertension with goal blood pressure less than 140/90 Take 1 Tablet by mouth in the morning. 90 Tablet 3 09/19/2023 Active amLODIPine Besylate 5 MG Oral Tablet (Norvasc) Take 1 Tablet by mouth in the morning. 90 Tablet 3 09/22/2022 09/19/2023 Discontinued (Medication/ Dose Changed) Losartan Potassium 100 MG Oral Tablet (Cozaar) Take 1 Tablet by mouth in the morning. 90 Tablet 3 09/22/2022 09/19/2023 Discontinued (Refill) traZODone HCl 50 MG Oral Tablet (Desyrel) Take 1 Tablet by mouth at bedtime. 90 Tablet 3 09/22/2022 09/19/2023 Discontinued (Medication List Clean Up) LORazepam 0.5 MG Oral Tablet (Ativan) Take 1-2 tabs 20 minutes prior to MRI 2 Tablet 0 06/19/2023 09/19/2023 Discontinued (Medication List Clean Up) documented as of this encounter (statuses as of 09/19/2023) Active Problems Problem Noted Date Diagnosed Date Obstructive sleep apnea 08/08/2023 Overweight (BMI 25.0-29.9) 09/22/2022 Chronic insomnia 09/22/2022 Routine general medical exam ination at a health care facility 03/26/2015 Overview: 2019 colon elsy 5y 12/11/20 Admit to [place] for hyponatremia? 05/06 multiple polyps colonoscopy--tubular adenoma. Elsy 5y HTN, goal below 130/80 03/26/2015 documented as of this encounter (statuses as of 09/19/2023) Resolved Problems Problem Noted Date Diagnosed Date Resolved Date Nocturia 03/05/2020 09/20/2022 Overview: 2-3x/night 2019. Declines Rx documented as of this encounter (statuses as of 09/19/2023) Immunizations Name Administration Dates Next Due COVID-19 mRNA, LNP-s, No Pre serve, 2-Dose Series (Pfizer) 07/05/2021,11/29/2020,11/15/2020 TDAP (age 10 and older)(Boostrix) 03/26/2015 Zoster Vaccine Recombinant (Shingrix) 06/08/2020 ,03/05/2020 documented as of this encounter Social History Tobacco Use Types Packs/Day Years Used Date Smoking Tobacco: Never Smokeless Tobacco: Current Tobacco Cessation:Ready to Q uit: Not Asked; Counseling Given: Not Answered Alcohol Use Standard Drinks/Week Comments Yes 0 (1 standard drink = 0.6 oz pur e alcohol) social. 6pack/weekend PHQ-2 Answer Date Recorded PHQ Adult Total Score 0 09/13/2020 Hunger Vital Sign Answer Date Recorded Within the past 12 months, y ou worried that your food would run out before you got the money to buy more. Never true 09/13/19 21 Within the past 12 months, t he food you bought just didn't last and you didn't have money to get more. Never true 09/13/2020 Sex and Gender Information Value Date Recorded Sex Assigned at Male 04/02/2023 10:43 AM EDT Gender Identity Male 04/02/2023 10:43 AM EDT Sexual Orientation Straight 04/02/2023 10 :43 AM EDT Job Start Date Occupation Industry Not on file Not on file Not on file documented as of this encounter Last Filed Vital Signs Vital Sign Reading Time Taken Comments Blood Pressure 152/76 09/19/2023 11:35 AM EST Pulse 80 09/19/2023 11:35 AM EST Temperature 36.5 C (97.7 F) 09/19/2023 11:[address] Respiratory Rate 18 09/19/2023 11:35 AM EST Oxygen Saturation 98% 09/19/2023 11:35 AM EST Inhaled Oxygen Concentration - - Weight 88.5 kg (195 lb) 09/19/2023 11:35 AM EST Height 182.9 cm (6') 09/19/2023 11:35 AM EST Body Mass Index 26.45 09/19/2023 11:35 AM EST documented in this encounter Progress Notes * Julio Syed MD - 09/19/2023 12:24 PM EST SUBJECTIVE: Constantino Crowell is a 58 year old male here for Physical-Exam (Yearly physical) . Here for CPE No fever, chills, chest pain, shortness of breath, headache, nausea, vomit, diarrhea, constipation or vision changes C/o left knee effusion x1.5 wk , no trauma. Has had drained/steroid shots in past , Dr Calix, now retired. ROS: Negative except above. Past Medical History: Diagnosis Date Chronic insomnia 09/22/2022 INFORMATION systolic click Overweight (BMI 25.0-29.9) 09/22/2022 Routine general medical examination at a health care facility 03/26/2015 Past Surgical History: Procedure Laterality Date COLONOSCOPY, DIAGNOSTIC (RECTUM) 05/14/2015 adenomatous & hyperplastic polyps, repeat 5 yrs/COLONOSCOPY FLEXIBLE PROXIMAL DIAGNOSTIC performed by Elyse Dominguez DO at [facility]OSCOPY [facility] COLONOSCOPY, DIAGNOSTIC (RECTUM) 05/28/2020 diverticulosis, repeat 5 yrs / COLONOSCOPY FLEXIBLE PROXIMAL DIAGNOSTIC performed by Elyse Dominguez DO at ENDOSCOPY [facility] INCISION OF EARDRUM 1970/redone 1971 Myringotomy REMOVAL OF ADENOIDS, AGE 12+ 1970/redone 1971 Adenoids Removal, 12+ Y/O REMOVE KNEE CARTILAGE, MED/LATERAL 07/23/2000 Knee meniscectomy, arthroscopic Social History Socioeconomic History Marital status: Spouse name: Not on file Number of children: Not on file Years of education: Not on file Highest education level: Not on file Occupational History 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 Tobacco Use Smoking status: Never Smokeless tobacco: Current Vaping Use Vaping Use: Never used Substance and Sexual Activity Alcohol use: Yes Comment: social. 6pack/weekend Drug use: No Sexual activity: Yes Partners: Female Comment: . [id number] kids 22& 24. home & local. Other Topics Concern Not on file Social History Narrative Likes fish, -on the side. Fishes up in [facility] 3-4 x/ year Social Determinants of Health Financial Resource Strain: Not on file Food Insecurity: No Food Insecurity (09/19/2023) Hunger Vital Sign Worried About Running Out of Food in the Last Year: Never true Ran Out of Food in the Last Year: Never true Transportation Needs: Not on file Physical Activity: Not on file Stress: Not on file Social Connections: Not on file Intimate Partner Violence: Not on file Housing Stability: Not on file Family History Problem Relation Age of Onset Heart Disorder Mother 70 [place]. alive. in [place] Heart Disorder Father cad. 04/2019 resp/fluid on heart No Past Hx Sister Cancer Aunt (Unspecified) 77 -great aunt leukemia Cancer Grandmother (Maternal) ?stomach 70s Heart Disorder Grandfather (Paternal) 70 cad Current Outpatient Medications Medication Sig Dispense Refill [...] No current facility-administered medications for this visit. Physical: BP 152/76 | Pulse 80 | Temp 36.5 C (97.7 F) (Tympanic) | Resp 18 | Ht 1.829 m (6') | Wt 88.5 kg(195 lb) | SpO2 98% | BMI 26.45 kg/m | BSA 2.12 m General-No apparent Distress Head, Eyes, Ears, Nose, Throat--Normocephalic, atraumatic Neck-Supple Lymph-no lymphadenopathy Lungs-Clear to Auscultation bilaterally Cardiovascular--Regular rate & Rhythm, +s1, s2, no murmur Abdomen-soft, nontender, nondistended + bowel sounds Extremities--no edema Mskel left knee effusion no redness, good ROM Neuro-alert & oriented x3 (Z00.00) Routine general medical examination at a health care facility (primary encounter diagnosis) Plan: counseled on diet/exercise Colon UTD pSA ordered Labs reviewed/ordered (I10) Essential hypertension with goal blood pressure less than 140/90 Plan: amLODIPine Besylate 10 MG Oral Tablet (Norvasc), Losartan Potassium 100 MG Oral Tablet (Cozaar) Inc amlodipine--pt prefers not to monitor at home (Z13.220) Lipid screening Plan: LIPID PANEL WITH DIRECT LDL IF TG IS HIGH (Z13.1) Screening for diabetes mellitus Plan: BASIC METABOLIC PANEL, HEMOGLOBIN A1C (M25.462) Effusion of left knee Plan: ORTHOPAEDICS REFERRAL OP (Z12.5) Screening for prostate cancer Plan: PSA (G47.33) Obstructive sleep apnea Plan: cont mgmt CPAP (This note was completed using the dictation program Fluency Direct. As such, there may be misspellings, word substitutions, or other variations that should not change the essence of the clinical content of this encounter note.If there is need for further clarification, please direct questions to the provider listed above.) Julio Syed MD documented in this encounter Nursing Notes * Diana Garza LPN - 09/19/2023 11:35 AM EST The patient has been properly identified by confirmation of name and date of . Chief Complaint Patient presents with Physical-Exam Yearly physical documented in this encounter Plan of Treatment Upcoming Encounters Date Type Department Care Team (Late st Contact Info) Description 09/25/2023 12:30 PM EST Office Visit Orthopaedics [facility] [address] [place] [address] [place] Chow PA-C [address] [place] [id number] 11/27/2023 9:00 AM EDT Office Visit Sleep Disorders Ctr [facility] [address] [place] [phone] Amanda Blankenship CRNP [address] [place] [address] Scheduled Orders Name Type Priority Associated Diagnoses Orde r Schedule LIPID PANEL WITH DIRECT LDL IF TG IS HIGH Lab Routine Lipid screening Expected: 09/19/2023, Expires: 09/19/2024 BASIC METABOLIC PANEL Lab Routine Screening for diabetes mellitus Expected: 09/19/2023 (Approximate), Expires: 09/18/2024 HEMOGLOBIN A1C Lab Routine Screening for diabetes mellitus Expected: 09/19/2023 (Approximate), Expires: 09/18/2024 PSA Lab Routine Screening for prostate cancer Expected: 09/19/2023 (Approximate), Expires: 09/18/2024 Scheduled Procedures Name Priority Associated Diagnoses Date/Ti me COLONOSCOPY FLEXIBLE PROXIMAL DIAGNOSTIC Recall History of colon polyps Scheduled Referrals Name Type Priority Associated Diagnoses Order Schedule ORTHOPAEDICS REFERRAL OP Referral Within 10 days (routine) Effusion of left knee Ordered: 09/19/2023 Health Maintenance Due Date Last Done Comments Hepatitis C Screening 1982 Hepatitis B (1 of 3 - 19+ 3-dose series) 1983 COVID-19 Vaccine (2022- season) 2023 07/05/2021, 11/29/2020, 11/15/2020 Influenza Vaccine (FLU shot) (#1) 2023 GFR 09/27/2023 09/26/2022, 07/23, 02/03/2021, Additional history exists Albumin/Creatinine Ratio 02/04/2024 02/03/2021, 08/24 Depression Screening 09/19/2024 09/19/2023 DTaP,Tdap,and Td Vaccines (2 - Td or Tdap) 03/26/2025 03/26/2015, 03/22/1995 COLONOSCOPY-EVERY 5 YRS AGES 18-100 05/28/2025 05/28/2020, 05/28/2020, 05/14/2015, Additional history exists Diabetes Screening 09/26/2025 09/26/2022, 0 08/10/2021, 02/03/2021, Additional history exists Lipid Panel 01/13/2026 01/13/2021, 02/20, 03/05/2020, Additional history exists Zoster Vaccines Completed 06/08/2020, [...] as of this encounter Visit Diagnoses Diagnosis Routine general medical examination at a health care facility- Primary Essential hypertension with goal blood pressure less than 140/90 Lipid screening Screening for lipoid disorders Screening for diabetes mellitus Effusion of left knee Effusion of lower leg joint Screening for prostate cancer Special screening for malignant neoplasm of prostate Obstructive sleep apnea Obstructive sleep apnea (adult) (pediatric) documented in this encounter Care Teams Computer Programmer Analyst Relationship Specialty Start Date End Date Julio Syed MD [address] [place] [address] PCP - General Family Medicine 03/26/15 documented as of this encounter"
--- OUTSIDE RECORDS SUMMARY | 2024-03-06 08:02 | External Medical Summary | Summary of Care ---
Author Name Unknown Organization [facility] Address [address] [place] [address] Phone [phone] Care Team Providers Care Resp Ther Name Role Phone Julio Syed MD Primary Care Provider + Reason for Visit * Reason Onset Date Comments Apnea Follow-up 10/01/2023 30 Day PAP Compl iance-Request to return CPAP Unit Encounter Details Date Type Department Care Team (Late st Contact Info) Description 10/01/2023 Telephone Sleep Lab [facility] [address] [facility] [place] [address] Jeyson Grimes, MOTION PICTURE SET GRIP Apnea Follow-up (30 Day PAP Compliance-Req... Allergies [...] 2019 colon elsy 5y 12/11/20 Admit to [place] for hyponatremia? 05/06 multiple polyps colonoscopy--tubular adenoma. Elsy 5y HTN, goal below 130/80 03/26/2015 documented as of this encounter (statuses as of 10/01/2023) Resolved Problems Problem Noted Date Diagnosed Date Resolved Date Nocturia 03/05/2020 09/20/2022 Overview: 2-3x/night 2019. Declines Rx documented as of this encounter (statuses as of 10/01/2023) Immunizations Name Administration Dates Next Due COVID-19 mRNA, LNP-s, No Pre serve, 2-Dose Series (Volt) 07/05/2021,11/29/2020,11/15/2020 TDAP (age 10 and older)(Boostrix) 03/26/2015 [...] Notes * Telephone Encounter - Jeyson Grimes, MOTION PICTURE SET GRIP - 10/01/2023 7:40 AM EDT AutoPAP COMPLIANCE: We have received a Poor compliance download from [facility] [facility] on 10/01/2023. It shows [...] Can Constantino Crowell return his pap unit? Jo, Paul documented in this encounter Plan of Treatment Upcoming Encounters Date Type Department Care Team (Late st Contact Info) Description 11/27/2023 9:00 AM EDT Office Visit Sleep Disorders Ctr [facility] [address] [place] [phone] Amanda Blankenship CRNP [address] [place] [address] Scheduled Procedures Name Priority Associated Diagnoses Date/Ti me COLONOSCOPY FLEXIBLE PROXIMAL DIAGNOSTIC Recall History of colon polyps Health Maintenance Due Date Last Done Comments Hepatitis C Screening 1982 Hepatitis B (1 of 3 - 19+ 3-dose series) 1983 COVID-19 Vaccine ( season) 2023 07/05/2021, 11/29/2020, 11/15/2020 Influenza Vaccine [...] filedocumented as of this encounter Care Teams Resp Ther Relationship Specialty Start Date End Date Julio Syed MD [address] [place] [address] PCP - General Family Medicine 03/26/15 documented as of this encounter
--- OUTSIDE RECORDS SUMMARY | 2024-03-06 08:02 | External Medical Summary | Summary of Care ---
Author Name Unknown Organization [facility] Address [address] [place] [address] Phone [phone] Care Team Providers Care Automation And Controls Supervisor Name Role Phone Julio Syed MD Primary Care Provider + Reason for Visit * Reason Onset Date Comments Apnea Follow-up 10/01/2023 30 Day PAP Compl iance-Request to return CPAP Unit Encounter Details Date Type Department Care Team (Late st Contact Info) Description 10/01/2023 Telephone Sleep Lab [facility] [address] [facility] [place] [address] Jeyson Grimes, PAINT ROLLER COVER MACHINE SETTER Apnea Follow-up (30 Day PAP Compliance-Req... Allergies [...] mRNA, LNP-s, No Pre serve, 2-Dose Series ([employer]oteSocial) 07/05/2021,11/29/2020,11/15/2020 TD - Tetanus/Diptheria (ADULT) 03/22/1995 TDAP [...] Notes * Telephone Encounter - Jeyson Grimes, PAINT ROLLER COVER MACHINE SETTER - 10/01/2023 8:34 AM EDT Called and SW Constantino Crowell and he is going to return the pap unit on 10/05/2023 at 0800 to [facility]. * Telephone Encounter - Kiki Nelson OSA - 10/01/2023 8:23 AM EDT Unit is still under rental, ok for pt to return * Telephone Encounter - Jeyson Grimes RRT - 10/01/2023 7:40 AM EDT AutoPAP COMPLIANCE: We have received a Poor compliance download from [employer] [facility] [employer] [facility] on 10/01/2023. It shows a 0% [...] AM EDT Office Visit Sleep Disorders Ctr [facility] [address] [place] [phone] Amanda Blankenship CRNP [address] [place] [address] Scheduled Procedures Name Priority Associated Diagnoses Date/Ti [...] filedocumented as of this encounter Care Teams Automation And Controls Supervisor Relationship Specialty Start Date End Date Julio Syed MD [address] [place] [address] PCP - General Family Medicine 03/26/15 documented as of this encounter
--- OUTSIDE RECORDS SUMMARY | 2024-03-06 08:02 | External Medical Summary | Summary of Care ---
Author Name Unknown Organization [facility] Address [address] [place] [address] Phone [phone] Care Team Providers Care Pinsetter Mechanic Helper Name Role Phone Julio Syed MD Primary Care Provider + Reason for Visit * Reason Onset Date Comments Durable Medical Equipment 10/05/2023 Autopa p Return Encounter Details Date Type Department Care Team ([facility] st Contact Info) Description 10/05/2023 Telephone Sleep Lab [facility] [address] [place] [address] Jeyson Grimes, KILN STACKER Durable Medical Equipment (Autopap Return ) Allergies [...] 2019 colon elsy 5y 12/11/20 Admit to [place] for hyponatremia? 05/06 multiple polyps colonoscopy--tubular adenoma. Elsy 5y HTN, goal below 130/80 03/26/2015 documented as of this encounter (statuses as of 10/05/2023) Resolved Problems Problem Noted Date Diagnosed Date Resolved Date Nocturia 03/05/2020 09/20/2022 Overview: 2-3x/night 2019. Declines Rx documented as of this encounter (statuses as of 10/05/2023) Immunizations Name Administration Dates Next Due COVID-19 mRNA, LNP-s, No Pre serve, 2-Dose Series (Trover) 07/05/2021,11/29/2020,11/15/2020 TD - Tetanus/Diptheria (ADULT) 03/22/1995 TDAP [...] Notes * Telephone Encounter - Jeyson Grimes, KILN STACKER - 10/05/2023 8:32 AM EDT Constantino Crowell came into the [facility] at 0800 today and returned his Resmed Airsense 10 serial number [id number]. Patient signed returned pap form. * Telephone Encounter - Jeyson Grimes, ROBIN - 10/05/2023 8:29 AM EDT Images from the original note were not included. e 10/01/23 7:51 AM Note AutoPAP COMPLIANCE: We have received a Poor compliance download from [employer] [facility] [employer] [facility] on 10/01/2023. It shows a 0% [...] AM EDT Office Visit Sleep Disorders Ctr [facility] [address] [place] [phone] Amanda Blankenship CRNP [address] [place] [address] Scheduled Procedures Name Priority Associated Diagnoses Date/Ti [...] filedocumented as of this encounter Care Teams Pinsetter Mechanic Helper Relationship Specialty Start Date End Date Julio Syed MD [address] [place] [address] PCP - General Family Medicine 03/26/15 documented as of this encounter
--- OUTSIDE RECORDS SUMMARY | 2024-03-06 08:02 | External Medical Summary | Summary of Care ---
Author Name Unknown Organization [facility] Address [address] [place] [address] Phone [phone] Care Team Providers Care Cementer Machine Joiner Name Role Phone Julio Syed MD Primary Care Provider + Reason for Visit * Reason Comments Durable Medical Equipment PAP setup Encounter Details Date Type Department Care Team ([facility] st Contact Info) Description 08/31/2023 Documentation Sleep Lab [facility] [address] [place] [address] Jeyson rGimes, TELEVISION INSTALLER Allergies No known active allergiesdocumented as of this encounter (statuses as of 09/13/2023) Medications Medication Sig Dispensed Refills Start Date End Date Status amLODIPine Besylate 5 MG Oral Tablet (Norvasc) Take 1 Tablet by mouth in the morning. 90 Tablet 3 09/22/2022 Active Losartan Potassium 100 MG Oral Tablet (Cozaar) Take 1 Tablet by mouth in the morning. 90 Tablet 3 09/22/2022 Active traZODone HCl 50 MG Oral Tablet (Desyrel) Take 1 Tablet by mouth at bedtime. 90 Tablet 3 09/22/2022 Active Additional Information Patient not taking.Reported on 06/06/2023 Sodium Chloride 1 GM Oral Tablet TAKE 1 TABLET BY MOUTH 3 TIMES DAILY 270 Tablet 0 03/28/2023 Active Additional Information Patient not taking.Reported on 08/08/2023 LORazepam 0.5 MG Oral Tablet (Ativan) Take 1-2 tabs 20 minutes prior to MRI 2 Tablet 0 06/19/2023 Active documented as of this encounter (statuses as of 09/13/2023) Active Problems Problem Noted Date Diagnosed Date Obstructive sleep apnea 08/08/2023 Overweight (BMI 25.0-29.9) 09/22/2022 Chronic insomnia 09/22/2022 Routine general medical exam ination at a health care facility 03/26/2015 Overview: 12/11/20 Admit to [place] for hyponatremia? 05/06 multiple polyps colonoscopy--tubular adenoma. Kalani 5y HTN, goal below 130/80 03/26/2015 documented as of this encounter (statuses as of 09/13/2023) Resolved Problems Problem Noted Date Diagnosed Date Resolved Date Nocturia 03/05/2020 09/20/2022 Overview: 2-3x/night 2019. Declines Rx documented as of this encounter (statuses as of 09/13/2023) Immunizations Name Administration Dates Next Due COVID-19 mRNA, LNP-s, No Pre serve, 2-Dose Series ([employer]on[employer]) 07/05/2021,11/29/2020,11/15/2020 TD - Tetanus/Diptheria (ADULT) 03/22/1995 TDAP [...] on file documented as of this encounter Nursing Notes * Jeyson Grimes RRT - 08/31/2023 9:54 AM EST Patient came into the [facility] for an autopap set up. Patient and I discussed the And how itwould affect their sleep. Patient understood this well. Drowsy Driving information given to patient. The patient was educated on the importance of those who have a pacemaker, a defibrillator, or a cochlear implant or who's bed partner has any previously mentioned devices to NOT use headgear that utilizes magnets, per the inside tester. Patient was set up with a Resmed AirSense 10 with heated Humidification and heated tubing. Ser# [id number] Settings: Autopap CPAP Pressure: 5-15 cwp Ramp Settin cwp over 15 minutes C-Flex: 3 Mask: Resmed Airfit F30 FFM-Medium Patient was fitted with his mask. Patient was also able to refit the mask himself. Patient understood all instructions very well. Patient and I discussed insurance protocol as well as my follow up procedure. Patient was encouraged to call with any issues. documented in this encounter Plan of Treatment Upcoming Encounters Date Type Department Care Team (Late st Contact Info) Description 09/19/2023 11:20 AM EST Office Visit Family Practice [facility] [address] [place] [address] Julio Syed MD [address] [place] [address] 11/27/2023 9:00 AM EDT Office Visit Sleep Disorders Ctr [facility] [address] [place] [phone] Amanda Blankenship CRNP [address] [place] [address] Scheduled Procedures Name Priority Associated Diagnoses Date/Ti me COLONOSCOPY FLEXIBLE PROXIMAL DIAGNOSTIC Recall History of colon polyps Health Maintenance Due Date Last Done Comments Hepatitis C Screening 1982 Hepatitis B (1 of 3 - 19+ 3-dose series) 1983 Depression Screening 09/13/2021 09/13/2020 COVID-19 Vaccine ( - season) 2023 07/05/2021, 11/29/2020, 11/15/2020 Influenza Vaccine (FLU shot) (#1) 2023 GFR 09/27/2023 09/26/2022, 07/23, 02/03/2021, Additional history exists Albumin/Creatinine Ratio 02/04/2024 02/03/2021, 08/24 DTaP,Tdap,and Td Vaccines (2 - Td or Tdap) 03/26/2025 03/26/2015, 03/22/1995 COLONOSCOPY-EVERY 5 YRS AGES 18-100 05/28/2025 05/28/2020, 05/28/2020, 05/14/2015, Additional history exists Diabetes Screening 09/26/2025 09/26/2022, 0 08/10/2021, 02/03/2021, Additional history exists Lipid Panel 01/13/2026 01/13/2021, 02/20, 03/05/2020, Additional history exists Zoster Vaccines Completed 06/08/2020, 05/23, 03/05/2020, Additional history exists GARDASIL-HPV IMMUNIZATION SERIES Aged Out No longer [...] filedocumented as of this encounter Care Teams Cementer Machine Joiner Relationship Specialty Start Date End Date Julio Syed MD [address] [place] [address] PCP - General Family Medicine 03/26/15 documented as of this encounter
--- OUTSIDE RECORDS SUMMARY | 2024-03-06 08:02 | External Medical Summary | Summary of Care ---
Author Name Unknown Organization [facility] Address [address] [place] [address] Phone [phone] Care Team Providers Care Steam Shovelman Name Role Phone Julio Syed MD Primary Care Provider + Reason for Visit * Reason Onset Date Comments Appointment 11/27/2023 Encounter Details Date Type Department Care Team ([facility] st Contact Info) Description 11/27/2023 Telephone [facility] [address] [place] [address] Rc Ugalde MD [address] [facility] [place] [address] Appointment Allergies No known active allergiesdocumented as of this encounter (statuses as of 11/27/2023) Medications Medication Sig Dispensed Refills Start Date [...] as of this encounter (statuses as of 11/27/2023) Active Problems Problem Noted Date Diagnosed Date Hyponatremia 11/03/2023 Obstructive sleep apnea 08/08/2023 Overweight (BMI 25.0-29.9) 09/22/2022 Chronic insomnia 09/22/2022 Routine general medical exam ination at a health care facility 03/26/2015 Overview: 2019 colon elsy 5y 12/11/20 Admit to [place] for hyponatremia? 05/06 multiple polyps colonoscopy--tubular adenoma. Elsy 5y HTN, goal below 130/80 03/26/2015 documented as of this encounter (statuses as of 11/27/2023) Resolved Problems Problem Noted Date Diagnosed Date Resolved Date Nocturia 03/05/2020 09/20/2022 Overview: 2-3x/night 2019. Declines Rx documented as of this encounter (statuses as of 11/27/2023) Immunizations Name Administration Dates Next Due COVID-19 mRNA, LNP-s, No Pre serve, 2-Dose Series ([employer]) 07/05/2021,11/29/2020,11/15/2020 TDAP (age 10 and older)(Boostrix) 03/26/2015 [...] encounter Miscellaneous Notes * Telephone Encounter - Magalie Smiley OSA - 11/27/2023 9:38 AM EDT 11/27/23 Called patient, left message. Trying to get patient scheduled with Nephrology for appointment. Referral is under active requests. Patient already established with Dr. Ugalde. Please offer first available to patient. My G message being sent out as well. documented in this encounter Plan of Treatment Scheduled Procedures Name Priority Associated Diagnoses Date/Ti [...] filedocumented as of this encounter Care Teams Steam Shovelman Relationship Specialty Start Date End Date Julio Syed MD [address] [place] [address] PCP - General Family Medicine 03/26/15 documented as of this encounter
--- OUTSIDE RECORDS SUMMARY | 2024-03-06 08:02 | External Medical Summary ---
Author Name Unknown Address Unknown Organization K0G:[facility] [place] [address] Laboratory Report Ordering Provider Test Date Status SAMIA GUIDRY 10/09/2023 10:11:30 Final Observation Date Value Abnormality Reference (Units ) Status BUN 10/09/2023 10:11:30 9 6-20 (mg/dL) Final Creatinine 10/09/2023 10:11:30 0.8 0.6-1.2 (mg/dL) Final Glomerular filtration rate/1.73 sq M.predicted [Volume Rate/Area] in Serum, Plasma or Blood by Creatinine-based formula (CKD-EPI) 10/09/2023 10:11:30 >90 >=60 (mL/min) Final eGFR is calculated based on the CKD-EPI 2020 equation SODIUM 10/09/2023 10:11:30 127 Below low normal 135 -146 (mmol/L) Final Potassium 10/09/2023 10:11:30 4.7 3.5-5.1 (m mol/L) Final Cl 10/09/2023 10:11:30 91 Below low normal 98- 107 (mmol/L) Final CO2 10/09/2023 10:11:30 22 22-32 (mmo l/L) Final Anion gap 10/09/2023 10:11:30 14 7-15 (mmol /L) Final Glucose 10/09/2023 10:11:30 128 Above high normal 70 -120 (mg/dL) Final Calcium 10/09/2023 10:11:30 9.4 8.4-10.2 ( mg/dL) Final Performing Location [facility] [place] [address]
--- OUTSIDE RECORDS SUMMARY | 2024-03-06 08:02 | External Medical Summary | Summary of Care ---
Author Name Unknown Organization [facility] Address [address] [place] [address] Phone [phone] Care Team Providers Care Inspector Line Name Role Phone Julio Syed MD Primary Care Provider + Reason for Visit * Reason Comments Outpatient Testing Encounter Details Date Type Department Care Team (Late st Contact Info) Description 09/25/2023 1:20 PM EST Laboratory Laboratory, [facility] [address] [place] [phone] [facility] [address] [place] [address] Lipid screening; Screening for diabetes mellitus; Screening for prostate cancer Allergies No known active allergiesdocumented as of this encounter (statuses as of 09/25/2023) Medications Medication Sig Dispensed Refills Start Date [...] as of this encounter (statuses as of 09/25/2023) Active Problems Problem Noted Date Diagnosed Date Obstructive sleep apnea 08/08/2023 Overweight (BMI 25.0-29.9) 09/22/2022 Chronic insomnia 09/22/2022 Routine general medical exam ination at a health care facility 03/26/2015 Overview: 2019 colon elsy 5y 12/11/20 Admit to [place] for hyponatremia? 05/06 multiple polyps colonoscopy--tubular adenoma. Elsy 5y HTN, goal below 130/80 03/26/2015 documented as of this encounter (statuses as of 09/25/2023) Resolved Problems Problem Noted Date Diagnosed Date Resolved Date Nocturia 03/05/2020 09/20/2022 Overview: 2-3x/night 2019. Declines Rx documented as of this encounter (statuses as of 09/25/2023) Immunizations Name Administration Dates Next Due COVID-19 mRNA, LNP-s, No Pre serve, 2-Dose Series ([employer]) 07/05/2021,11/29/2020,11/15/2020 TDAP (age 10 and older)(Boostrix) 03/26/2015 [...] AM EDT Office Visit Sleep Disorders Ctr [facility] [address] [place] [phone] Amanda Blankenship CRNP [address] [place] [address] Pending Results Name Type Priority Associated Diagnoses Date /Time LIPID PANEL WITH DIRECT LDL IF TG IS HIGH Lab Routine Lipid screening 09/25/2023 1:14 PM EST BASIC METABOLIC PANEL Lab Routine Screening for diabetes mellitus 09/25/2023 1:14 PM EST HEMOGLOBIN A1C Lab Routine Screening for diabetes mellitus 09/25/2023 1:14 PM EST PSA Lab Routine Screening for prostate cancer 09/25/2023 1:14 PM EST Scheduled Procedures Name Priority Associated Diagnoses Date/Ti [...] as of this encounter Visit Diagnoses Diagnosis Lipid screening Screening for lipoid disorders Screening for diabetes mellitus Screening for prostate cancer Special screening for malignant neoplasm of prostate documented in this encounter Care Teams Inspector Line Relationship Specialty Start Date End Date Julio Syed MD [address] [place] [address] PCP - General Family Medicine 03/26/15 documented as of this encounter
--- OUTSIDE RECORDS SUMMARY | 2024-03-06 08:02 | External Medical Summary | Summary of Care ---
Author Name Unknown Organization [facility] Address [address] [place] [address] Phone [phone] Care Team Providers Care Professor Of Theology Name Role Phone Julio Syed MD Primary Care Provider + Reason for Visit * Reason Onset Date Comments Pre Cert/Prior Auth 08/09/2023 Encounter Details Date Type Department Care Team ([facility] st Contact Info) Description 08/09/[address] [facility] [address] [place], [place] [phone] [facility] [address] [place], [place] [phone] Pre Cert/Prior Auth Allergies No known active allergiesdocumented as of this encounter (statuses as of 10/05/2023) Medications Medication Sig Dispensed Refills Start Date End Date Status Sodium Chloride 1 GM Oral Tablet TAKE 1 TABLET BY MOUTH 3 TIMES DAILY 270 Tablet 0 03/28/2023 Active amLODIPine Besylate 5 MG Oral Tablet [...] 2019 colon elsy 5y 12/11/20 Admit to [place] for hyponatremia? 05/06 multiple polyps colonoscopy--tubular adenoma. Elsy 5y HTN, goal below 130/80 03/26/2015 documented as of this encounter (statuses as of 10/05/2023) Resolved Problems Problem Noted Date Diagnosed Date Resolved Date Nocturia 03/05/2020 09/20/2022 Overview: 2-3x/night 2019. Declines Rx documented as of this encounter (statuses as of 10/05/2023) Immunizations Name Administration Dates Next Due COVID-19 mRNA, LNP-s, No Pre serve, 2-Dose Series ([employer]) 07/05/2021,11/29/2020,11/15/2020 TD - Tetanus/Diptheria (ADULT) 03/22/1995 TDAP [...] encounter Miscellaneous Notes * Telephone Encounter - Smita Rodriguez OSA - 10/05/2023 11:21 AM EDT Setup 08/31/23 09/07/23 Paul W. s/w pt re: 0%. Pt requested a pressure change. He said he just cannot tolerate the pressure when it gets high. A pressure change was made. 30 day 1 try 3hr 21 min 09/30/23 Paul R. s/w pt, he stated that the cpap machine is not going to work out and he just wants to return it. Approved by Kiki. Patient returning CPAP on 10/05/23 @ 8am @ [facility] Jeyson Grimes, PRESS READER 10/05/23 8:34 AM Note Constantino Crowell came into the [facility] at 0800 today and returned his Resmed Airsense 10 serial number [id number] * Telephone Encounter - Laila Pickens OSA - 08/09/2023 10:19 AM EST Verified [employer] benefits on the online service, [employer]. PPO plan Eff. $250/ded-has $250 remaining to be met for this year Pd @ 90% up to OOP max of $1500 - has $1500 remaining to be met for this year Rentals are paid up to the purchase davis. Auth is NOT needed for PAP, [id number]. 04/12/23 OV - htn, insomnia, snoring, wa 07/09/23 HST - 4% AGATHA 17.5/HR 08/08/23 RX documented in this encounter Plan of Treatment Upcoming Encounters Date Type Department Care Team (Late st Contact Info) Description 11/27/2023 9:00 AM EDT Office Visit Sleep Disorders Ctr [facility] [address] [place] [phone] Amanda Blankenship CRNP [address] [place] [address] Scheduled Procedures Name Priority Associated Diagnoses Date/Ti [...] filedocumented as of this encounter Care Teams Professor Of Theology Relationship Specialty Start Date End Date Julio Syed MD [address] [place] [address] PCP - General Family Medicine 03/26/15 documented as of this encounter
--- OUTSIDE RECORDS SUMMARY | 2024-03-06 08:02 | External Medical Summary | Summary of Care ---
Author Name Unknown Organization [facility] Address [address] [place] [address] Phone [phone] Care Team Providers Care Drier Unloader Name Role Phone Julio Syed MD Primary Care Provider + Reason for Visit * Reason Onset Date Comments Apnea Follow-up 10/01/2023 30 Day PAP Compl iance-Request to return CPAP Unit Encounter Details Date Type Department Care Team (Late st Contact Info) Description 10/01/2023 Telephone Sleep Lab [facility] [address] [facility] [place] [address] Jeyson Grimes, MICROARRAY ANALYST Apnea Follow-up (30 Day PAP Compliance-Req... Allergies No known active allergiesdocumented as of this encounter (statuses as of 10/03/2023) Medications Medication Sig Dispensed Refills Start Date [...] as of this encounter (statuses as of 10/03/2023) Active Problems Problem Noted Date Diagnosed Date Obstructive sleep apnea 08/08/2023 Overweight (BMI 25.0-29.9) 09/22/2022 Chronic insomnia 09/22/2022 Routine general medical exam ination at a health care facility 03/26/2015 Overview: 2019 colon elsy 5y 12/11/20 Admit to [place] for hyponatremia? 05/06 multiple polyps colonoscopy--tubular adenoma. Elsy 5y HTN, goal below 130/80 03/26/2015 documented as of this encounter (statuses as of 10/03/2023) Resolved Problems Problem Noted Date Diagnosed Date Resolved Date Nocturia 03/05/2020 09/20/2022 Overview: 2-3x/night 2019. Declines Rx documented as of this encounter (statuses as of 10/03/2023) Immunizations Name Administration Dates Next Due COVID-19 mRNA, LNP-s, No Pre serve, 2-Dose Series ([employer]) 07/05/2021,11/29/2020,11/15/2020 TD - Tetanus/Diptheria (ADULT) 03/22/1995 TDAP [...] Notes * Telephone Encounter - Jeyson Grimes, MICROARRAY ANALYST - 10/01/2023 8:34 AM EDT Called and SW Constantino Crowell and he is going to return the pap unit on 10/05/2023 at 0800 to [facility]. * Telephone Encounter - Kiki Nelson OSA - 10/01/2023 8:23 AM EDT Unit is still under rental, ok for pt to return * Telephone Encounter - Jeyson Grimes RRT - 10/01/2023 7:40 AM EDT AutoPAP COMPLIANCE: We have received a Poor compliance download from [employer] on 10/01/2023. It shows a 0% [...] AM EDT Office Visit Sleep Disorders Ctr [facility] [address] [place] [phone] Amanda Blankenship CRNP [address] [place] [address] Scheduled Procedures Name Priority Associated Diagnoses Date/Ti [...] filedocumented as of this encounter Care Teams Drier Unloader Relationship Specialty Start Date End Date Julio Syed MD [address] [place] [address] PCP - General Family Medicine 03/26/15 documented as of this encounter
--- OUTSIDE RECORDS SUMMARY | 2024-03-06 08:02 | External Medical Summary ---
Author Name Unknown Address Unknown Organization K01[facility] [address] [facility] [address] Laboratory Report Ordering Provider Test Date Status POWER MURRAYDELMER 09/25/2023 13:14:45 Final Observation Date Value Abnormality Reference (Units ) Status Triglyceride 09/25/2023 13:14:45 67 <=174 ( mg/dL) Final Triglyceride Reference Range s (mg/dL):
<150 Acceptable
150-174 Borderline high
175-499 High
>=500 Very high Cholesterol 09/25/2023 13:14:45 148 <200 (mg /dL) Final Total Cholesterol Reference Ranges (mg/dL):
<200 Desirable
200-239 Borderline high
>=240 High HDL 09/25/2023 13:14:45 62 >39 (mg/dL ) Final HDL Cholesterol Reference Ra nges (mg/dL):
>=60 High (Desirable)
<50 Low (Undesirable) For Females
<40 Low (Undesirable) For Males NON-HDL CHOLESTEROL 09/25/2023 13:14:45 86 <=159 (mg/dL) Final Non-HDL Cholesterol Referenc e Range (mg/dL):
<100 Target level for high risk ASCVD patient
<130 Optimal for general population
130-159 Near optimal for general population
160-189 Borderline High
190-219 High
>=220 Very High LDL, (calculated) 09/25/2023 13:14:45 73 <= 129 (mg/dL) Final LDL Cholesterol Reference Ra nges (mg/dL):
<70 Target level for high risk ASCVD patient
<100 Optimal for general population
100-129 Near optimal for general population
130-159 Borderline high
160-189 High
>=190 Very high Performing Location [facility] [place] - [address] [facility] [address]
--- OUTSIDE RECORDS SUMMARY | 2024-03-06 08:02 | External Medical Summary | Summary of Care ---
Author Name Unknown Organization [facility] Address [address] [place] [address] Phone [phone] Care Team Providers Care Oakes Machine Operator Name Role Phone Julio Syed MD Primary Care Provider + Encounter Details Date Type Department Care Team (Late st Contact Info) Description 09/24/2023 Orders Only PATIENT PORTAL DO NOT DELETE THIS DEPT USED BY [place] [id number] Allergies No known active allergiesdocumented as of this encounter (statuses as of 09/24/2023) Medications Medication Sig Dispensed Refills Start Date [...] as of this encounter (statuses as of 09/24/2023) Active Problems Problem Noted Date Diagnosed Date Obstructive sleep apnea 08/08/2023 Overweight (BMI 25.0-29.9) 09/22/2022 Chronic insomnia 09/22/2022 Routine general medical exam ination at a health care facility 03/26/2015 Overview: 2020 colon elsy 5y 12/11/20 Admit to [place] for hyponatremia? 05/06 multiple polyps colonoscopy--tubular adenoma. Elsy 5y HTN, goal below 130/80 03/26/2015 documented as of this encounter (statuses as of 09/24/2023) Resolved Problems Problem Noted Date Diagnosed Date Resolved Date Nocturia 03/05/2020 09/20/2022 Overview: 2-3x/night 2019. Declines Rx documented as of this encounter (statuses as of 09/24/2023) Immunizations Name Administration Dates Next Due COVID-19 [...] 09/25/2023 12:30 PM EST Office Visit Orthopaedics [facility] [address] [place] [address] Jerome Chow PA-C [address] [place] [address] 11/27/2023 9:00 AM EDT Office Visit Sleep Disorders Ctr [facility] [address] [place] [phone] Amanda Blankenship CRNP [address] [place] [address] Scheduled Procedures Name Priority Associated Diagnoses Date/Ti [...] filedocumented as of this encounter Care Teams Oakes Machine Operator Relationship Specialty Start Date End Date Julio Syed MD [address] [place] [address] PCP - General Family Medicine 03/26/15 documented as of this encounter
--- OUTSIDE RECORDS SUMMARY | 2024-03-06 08:03 | External Medical Summary | Summary of Care ---
Author Name Unknown Organization [facility] Address [address] [place] [address] Phone [phone] Care Team Providers Care Shoe Salesman Name Role Phone Julio Syed MD Primary Care Provider + Reason for Visit * Reason Onset Date Comments Apnea Follow-up 09/07/2023 7 day CPAP Compl iance Encounter Details Date Type Department Care Team (Late st Contact Info) Description 09/07/2023 Telephone Sleep Lab [facility] [address] [facility] [address] Jeyson Grimes, CYCLE LIAISON Apnea Follow-up (7 day CPAP Compliance ) Allergies No known active allergiesdocumented as [...] care facility 03/26/2015 Overview: 12/11/20 Admit to [facility] for hyponatremia? 05/06 multiple polyps colonoscopy--tubular adenoma. Kalani 4y HTN, goal below 130/80 03/26/2015 documented as of this encounter (statuses as of 09/13/2023) Resolved Problems Problem Noted Date Diagnosed Date Resolved Date Nocturia 03/05/2020 09/20/2022 Overview: 2-3x/night 2019. Declines Rx documented as of this encounter (statuses as of 09/13/2023) Immunizations Name Administration Dates Next Due COVID-19 mRNA, LNP-s, No Pre serve, 2-Dose Series ([employer]) 07/05/2021,11/29/2020,11/15/2020 TD - Tetanus/Diptheria (ADULT) 03/22/1995 TDAP [...] Miscellaneous Notes * Telephone Encounter - Jeyson Grimes RRT - 09/13/2023 1:24 PM EST I changed Constantino Jovi Crowell's PAP settings to an autopap 5-10 cmH2O via cellular modem per Amanda Blankenship's order. The patient was informed of the change via phone. * Telephone Encounter - Amanda Blankenship CRNP - 09/13/2023 10:38 AM EST Please change to auto CPAP 5-10 cm H2O. Order will be placed in separate encounter. * Telephone Encounter - Jesyon Grimes RRT - 09/07/2023 1:57 PM EST AutoPAP COMPLIANCE: We have received a Poor compliance download from [employer] [facility] on 09/07/2023. It shows a 0% of use over 4 hours from 08/31/2023 to 09/06/2023. Average AHI of 0.5 with minimal leak. The pressure at the 95th percentile is 14.3 cmH2O. This report will be scanned into the chart. NATHAN Crowell regarding their low PAP compliance. The patient was informed that if the compliance does not improve to 70% or greater the insurance company may not authorize payment. The patient was encouraged to wear the PAP unit unit every night for > 4 hours. I asked him to let me know what I can do to help improve the compliance. He said he wants the top pressure reduced. He said he just cannot tolerate the pressure when it gets high. Ale Patel. Constantino Jovi Crowell is not tolerating the upper end pap pressure. I called and spoke with him and he is requesting to have the upper pressure reduced. He only wore the pap unit the first night. He has not worn it since. Can the upper pressure be reduced? Below is the 7 day compliance report. Paul Osorio Compliance Report Compliance Payor Standard Usage 08/31/2023 - 09/06/2023 Usage days 1/7 days (14%) >= 4 hours 0 days (0%) < 4 hours 1 days (14%) Usage hours 3 hours 21 minutes Average usage (total days) 29 minutes Average usage (days used) 3 hours 21 minutes Median usage (days used) 3 hours 21 minutes Total used hours (value since last reset - 09/06/2023) 3 hours AirSense 10 AutoSet Serial number [id number] Mode AutoSet Min Pressure 5 cmH2O Max Pressure 15 cmH2O EPR Fulltime EPR level 3 Response Standard Therapy Pressure - cmH2O Median: 8.8 95th percentile: 14.3 Maximum: 14.9 Leaks - L/min Median: 0.0 95th percentile: 2.4 Maximum: 6.0 Events per hour AI: 0.2 HI: 0.3 AHI: 0.5 Apnea Index Central: 0.0 Obstructive: 0.2 Unknown: 0.0 RERA Index 0.2 Alex-Castellon respiration (average duration per night) 0 minutes (0%) documented in this encounter Plan of Treatment Upcoming Encounters Date Type Department Care Team (Late st Contact Info) Description 09/19/2023 11:20 AM EST Office Visit Family Practice [facility] [address] [address] Julio Syed MD [address] [place] [address] 11/27/2023 9:00 AM EDT Office Visit Sleep Disorders Ctr [facility] [address] [phone] Amanda Blankenship CRNP [address] [place] [address] Scheduled Procedures Name Priority Associated Diagnoses Date/Ti me COLONOSCOPY FLEXIBLE PROXIMAL DIAGNOSTIC Recall History of colon polyps Health Maintenance Due Date Last Done Comments Hepatitis C Screening 1982 Hepatitis B (1 of 3 - 19+ 3-dose series) 1983 Depression Screening 09/13/2021 09/13/2020 COVID-19 Vaccine ( season) 2023 07/05/2021, 11/29/2020, [...] filedocumented as of this encounter Care Teams Shoe Salesman Relationship Specialty Start Date End Date Julio Syed MD [address] [place] [address] PCP - General Family Medicine 03/26/15 documented as of this encounter
--- OUTSIDE RECORDS SUMMARY | 2024-03-06 08:03 | External Medical Summary | Summary of Care ---
Author Name Unknown Organization [facility] Address [address] [place] [address] Phone [phone] Care Team Providers Care Land Leveler Name Role Phone Julio Syed MD Primary Care Provider + Encounter Details Date Type Department Care Team (Late st Contact Info) Description 09/13/2023 Orders Only Sleep Disorders Ctr [facility] [address] [place] [phone] Amanda Blankenship CRNP [address] [place] [address] SENA (obstructive sleep apnea)* Allergies No known active allergiesdocumented as of [...] care facility 03/26/2015 Overview: 12/11/20 Admit to [place] for hyponatremia? 05/06 multiple polyps colonoscopy--tubular adenoma. Kalani 4y HTN, goal below 130/80 03/26/2015 documented as of this encounter (statuses as of 09/13/2023) Resolved Problems Problem Noted Date Diagnosed Date Resolved Date Nocturia 03/05/2020 09/20/2022 Overview: 2-3x/night 2019. Declines Rx documented as of this encounter (statuses as of 09/13/2023) Immunizations Name Administration Dates Next Due COVID-19 mRNA, LNP-s, No Pre serve, 2-Dose Series ([employer]) 07/05/2021,11/29/2020,11/15/2020 TDAP (age 10 and older)([employer]) 03/26/2015 [...] 11:20 AM EST Office Visit Family Practice [facility] [address] [place] [address] Julio Syed MD [address] [place] [address] 11/27/2023 9:00 AM EDT Office Visit Sleep Disorders Ctr [facility] [address] [place] [phone] Amanda Blankenship CRNP [address] [place] [address] Scheduled Procedures Name Priority Associated Diagnoses Date/Ti [...] as of this encounter Visit Diagnoses Diagnosis SENA (obstructive sleep apnea)- Primary Obstructive sleep apnea (adult) (pediatric) documented in this encounter Care Teams Land Leveler Relationship Specialty Start Date End Date Julio Syed MD [address] [place] [address] PCP - General Family Medicine 03/26/15 documented as of this encounter
--- OUTSIDE RECORDS SUMMARY | 2024-03-06 08:03 | External Medical Summary | Summary of Care ---
Author Name Unknown Organization [facility] Address [address] [place] [address] Phone [phone] Care Team Providers Care Film Archivist Name Role Phone Julio Syed MD Primary Care Provider + Reason for Visit * Reason Onset Date Comments Apnea Follow-up 09/07/2023 7 day CPAP Compl iance Encounter Details Date Type Department Care Team (Late st Contact Info) Description 09/07/2023 Telephone Sleep Lab [facility] [address] [facility] [address] Jeyson Grimes, JUNIOR NET DEVELOPER Apnea Follow-up (7 day CPAP Compliance ) [...] care facility 03/26/2015 Overview: 12/11/20 Admit to [place] for hyponatremia? 05/06 multiple polyps colonoscopy--tubular adenoma. Kalani 5y HTN, goal below 130/80 03/26/2015 documented as of this encounter (statuses as of 09/13/2023) Resolved Problems Problem Noted Date Diagnosed Date Resolved Date Nocturia 03/05/2020 09/20/2022 Overview: 2-3x/night 2019. Declines Rx documented as of this encounter (statuses as of 09/13/2023) Immunizations Name Administration Dates Next Due COVID-19 mRNA, LNP-s, No Pre serve, 2-Dose Series ([employer]) 07/05/2021,11/29/2020,11/15/2020 TD - Tetanus/Diptheria (ADULT) 03/22/1995 TDAP [...] encounter Miscellaneous Notes * Telephone Encounter - Amanda Blankenship CRNP - 09/13/2023 10:38 AM EST Please change to auto CPAP 5-10 cm H2O. Order will be placed in separate encounter. * Telephone Encounter - GrimesJeyson, JUNIOR NET DEVELOPER - 09/07/2023 1:57 PM EST AutoPAP COMPLIANCE: We have received a Poor compliance download from [employer] [facility] on 09/07/2023. It shows a 0% [...] when it gets high. Ale Patel. Constantino Crowell is not tolerating the upper end [...] 3 hours AirSense 10 AutoSet Serial number [id number] Mode AutoSet Min Pressure 5 cmH2O Max [...] 11:20 AM EST Office Visit Family Practice [facility] [address] [address] Julio Syed MD [address] [place] [address] 11/27/2023 9:00 AM EDT Office Visit Sleep Disorders Ctr [facility] [address] [phone] Amanda Blankenship CRNP [address] [place] [address] Scheduled Procedures Name Priority Associated Diagnoses Date/Ti [...] filedocumented as of this encounter Care Teams Film Archivist Relationship Specialty Start Date End Date Julio Syed MD [address] [place] [address] PCP - General Family Medicine 03/26/15 documented as of this encounter
--- NOTE | 2024-03-06 08:04 | Emergency Department Note ---
Impression & Plan Weakness, Acute hyponatremia, Elevated liver enzymes ED Provider Note NAME: MAIN ANDREWS AGE: 58 SEX: M : 1965 ARRIVES VIA: Walk-In INFORMANT: [Patient][] ED PROVIDER(S): [Chase Rosario MD] CHIEF COMPLAINT: Abnormal laboratories HISTORY OF PRESENT ILLNESS: The patient is a 58-year-old male who has not felt well for months. He has been weak, tired and has not been sleeping. 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 He denies any new stressors or change in his routine. Patient had outpatient laboratory work done in preparation for a doctor's appointment today. He was called as his sodium was low at 122. He was referred to the ER. The patient does drink a lot of free water. He had a low sodium once before and required a hospital stay. The patient states that he does take a lot of medications. He does carry history of hypertension as well as the low sodium diagnosis. The patient does admit to some occasional nausea and vomiting after eating. He does have diarrhea which he thinks is from his medications. There has been no fever, no chest pain or abdominal pain, no shortness of breath. PMHx/PSHx/Social Hx: See Below PHYSICAL EXAM: GENERAL: Patient is in no acute distress. HEENT: No acute trauma, normocephalic atraumatic, mucous membranes dry, no nasal congestion. NECK: No stridor, no adenopathy, no meningismus, trachea is midline. LUNGS: Clear to auscultation bilaterally, no wheeze, no rhonchi, breath sounds equal. HEART: 1/6 systolic murmur, regular rate and rhythm. ABDOMEN: Soft, nontender, no peritonitis. EXTREMITIES: No cyanosis, full range of motion of all the joints without pain or difficulty. NEUROLOGIC: Oriented x 3, no acute motor or sensory deficits, no focal weakness. No speech slur. SKIN: No jaundice, no diaphoresis. DIFFERENTIAL DIAGNOSIS: Dehydration, excessive free water intake, electrolyte imbalance, anemia, medication reaction, depression, among others. EMERGENCY DEPARTMENT PROCEDURES: MEDICAL DECISION MAKING: There is no leukocytosis, the white count is actually slightly low. There was a normal hemoglobin and platelet count. Sodium was low at 121. Chloride was low as well. No renal failure. Patient did have some liver enzyme elevations however, the bilirubin was normal. Patient appeared to be in a euthyroid state. Urinalysis showed some dehydration, no findings of infection. Alcohol level was undetectable. Anaplasmosis and Babesia smears were negative. Lyme disease testing was positive however, the IgG was positive, not the IgM. On exam, the patient was not febrile, he was not toxic. The patient was given IV saline, 1 L. The patient presents with fatigue and weakness. He was hyponatremic. His value was low enough that he would warrant hospitalization to correct this electrolyte abnormality. Patient has had issues with hyponatremia before, he presents today with complaints that certainly could be a result of hyponatremia. I did speak with the patient and case management, the on-call hospitalist has been consulted. Prior/Outside records/notes reviewed: None ECG per my interpretation: Indication was electrolyte imbalance. The ECG shows a normal sinus rhythm with a rate of 83. There is no acute ST elevation, no PVCs. QTc was 465. Continuous Cardiac Monitoring per my interpretation: An order was placed for continuous cardiac monitoring. The monitor shows a rate of 77 with normal sinus rhythm. Imaging/x-ray results per my interpretation: Chronic Medical/Social conditions affecting care: History of previous hyponatremia. Care/Management discussed with: Case management, the on-call hospitalist. Level of care consideration(s): After review of the information above and other included data: --I believe the patient requires escalation of care to admission DISPOSITION: Admission Past Med/Surg History Problem List (Updated 03/06/24 @ 14:55 by Chase Rosario MD) Elevated liver enzymes (Acute) Acute hyponatremia (Acute) Weakness (Acute) Alcohol abuse SIADH (syndrome of inappropriate ADH production) Transaminitis Acute hyponatremia Medical History Chronic insomnia Chronic hyponatremia Obstructive sleep apnea Hypertension Social History Smoking Status: Never smoker Preferred Language: Icelandic Feels Safe at Home: Yes Allergies Allergies Allergy/AdvReac Type Severity Reaction Status Date / Time No Known Allergies Allergy Unverified 01/17/21 20:43 Home Meds Home Medications Medication Instructions Recorded Confirmed amlodipine 5 mg tablet 5 mg PO UD 01/17/21 03/06/24 losartan 100 mg tablet 100 mg PO DAILY 01/17/21 03/06/24 potassium chloride 20 mEq 20 meq PO DAILY 03/06/24 03/06/24 tablet,extended release(part/cryst) (Klor-Con M) torsemide 20 mg tablet 10 mg PO DAILY 03/06/24 03/06/24 urea 15 gram oral powder packet 1 packet PO HS 03/06/24 03/06/24 (Ure-Na) Results & Data (ED) Vital Signs Vital Signs - 24 hr 03/06/24 07:48 03/06/24 08:00 03/06/24 08:24 Temperature 36.2 C L Temperature Source Temporal Artery Scan Pulse Rate 98 H 89 Pulse Rate [Right Finger] 93 H Respiratory Rate 18 18 Respiratory Effort / Characteristics Non-Labored Spontaneous Non-Labored Respiratory Depth Normal Blood Pressure 163/93 H Blood Pressure Mean 116 Pulse Oximetry 100 98 Oxygen Delivery Method Room Air Room Air Sepsis Recent Fever Within 48 Hours No Sepsis New/Unexplained Change in Mental Status N/A Sepsis Action Taken by Nursing No Action Required 03/06/24 08:26 Temperature Temperature Source Pulse Rate 93 H Pulse Rate [Right Finger] Respiratory Rate 18 Respiratory Effort / Characteristics Respiratory Depth Blood Pressure Blood Pressure Mean Pulse Oximetry 98 Oxygen Delivery Method Room Air Sepsis Recent Fever Within 48 Hours Sepsis New/Unexplained Change in Mental Status Sepsis Action Taken by Assisted Medications Current Medication List: was personally reviewed by me Laboratory Data Attestation: I reviewed the patient's lab results. 03/06/24 08:10 03/06/24 10:18 Lab Results 03/06/24 03/06/24 03/06/24 Range/Units 08:10 08:58 09:39 WBC 4.20 L (4.8-10.8) K/ul RBC 4.29 L (4.70-6.10) M/uL Hgb 14.5 (14.0-18.0) g/dl Hct 39.6 L (42.0-52.0) % MCV 92.3 (80.0-100.0) fL MCH 33.8 (25.0-34.0) pg MCHC 36.6 H (32.0-36.0) g/dL RDW Std Deviation 43.1 (36.4-46.3) fL RDW Coeff of Ayana 13.0 (11.5-14.5) % Plt Count 211 (130-400) K/uL MPV 9.6 (9.4-12.4) fL Immature Gran % (Auto) 0.7 % Neut % (Auto) 62.1 % Lymph % (Auto) 20.0 % Daggett % (Auto) 14.8 % Eos % (Auto) 1.4 % Baso % (Auto) 1.0 % Neut # (Auto) 2.61 (1.40-6.50) K/uL Lymph # (Auto) 0.84 L (1.20-3.40) K/uL Daggett # (Auto) 0.62 H (0.11-0.59) K/uL Eos # (Auto) 0.06 (0.00-0.50) K/uL Baso # (Auto) 0.04 (0.00-0.20) K/uL Immature Gran # (Auto) 0.03 (0.01-0.20) K/uL Sodium Cancelled 121 L Potassium Cancelled 3.7 Chloride Cancelled 79 L Carbon Dioxide Cancelled 27 Anion Gap Cancelled 15 H BUN Cancelled 15 Creatinine Cancelled 0.88 Est Cr Clr Drug Dosing Cancelled 99.2 Est GFR ( Amer) Cancelled 109.0 Est GFR (Non-Af Amer) Cancelled 94.0 BUN/Creatinine Ratio Cancelled 17.0 Glucose Cancelled 86 Calcium Cancelled 9.5 Magnesium Cancelled 1.9 Total Bilirubin Cancelled 1.0 AST Cancelled 65 H ALT Cancelled 76 H Alkaline Phosphatase Cancelled 40 Total Protein Cancelled 7.7 Albumin Cancelled 5.0 Globulin Cancelled 2.7 Albumin/Globulin Ratio Cancelled 1.9 TSH Cancelled 1.369 Urine Color Yellow Urine Appearance Clear (Clear) Urine pH 5.5 (4.5-7.5) Ur Specific [place] 1.008 (1.000-1.030) Urine Protein Negative (Negative) Urine Glucose (UA) Negative (Negative) Urine Ketones Trace H (Negative) Urine Blood Negative (Negative) Urine Nitrite Negative (Negative) Urine Bilirubin Negative (Negative) Urine Urobilinogen Negative (Negative) Ur Leukocyte Esterase Negative (Negative) Urine Osmolality 207 L (500-800) mOsm/kg Ur Random Sodium < 10 mmol/L Ethyl Alcohol mg/dL Cancelled < 10.0 Administered Medications Urea (Urea (Urea-Na) 15 Gm Pack) 15 gm PO BID NEVA Stop: 04/05/24 10:29 Last Admin: 03/06/24 10:47 Dose: 15 gm Documented By: RACHEL Discontinued Medications Sodium Chloride (Nss) 500 mls @ 999 mls/hr IV .Q31M NEVA Stop: 03/06/24 08:30 Last Infusion: 03/06/24 09:40 Dose: Infused Documented By: Admin: 03/06/24 08:17 Dose: 999 mls/hr Documented By: ILANA Sodium Chloride (Nss) 500 mls @ 999 mls/hr IV .Q31M ONE Stop: 03/06/24 10:18 Last Infusion: 03/06/24 11:44 Dose: Infused Documented By: Admin: 03/06/24 09:53 Dose: 999 mls/hr Documented By: RACHEL Potassium Chloride (Potassium Chloride Crtab 20 Meq Tabcr) 40 meq PO ONE ONE Stop: 03/06/24 11:31 Last Admin: 03/06/24 11:50 Dose: 40 meq Documented By: RACHEL Discharge Plan Visit Data Chief Complaint: Abnormal Labs/Diagnostic Testing Stated Complaint: LOW SODIUM RESULTS, REF BY DOC ED Provider: Chase Rosario Discharge Problem: Weakness, Acute hyponatremia, Elevated liver enzymes Patient Disposition: Admitted As Inpatient Condition: Good Discharge Instructions Interventions: ED Discharge Assessment Last Done: 03/06/24 14:29
[2024-03-06] MEDS: SODIUM CHLORIDE 0.9% 500 ML IV SCH (08:17)
[2024-03-06 08:37] LABS: Basophils # (auto) 0.04 K/uL (0.00-0.20); Eosinophils # (auto) 0.06 K/uL (0.00-0.50); Eosinophils % (auto) 1.4 %; Hematocrit (blood only) 39.6 % (42.0-52.0); Hemoglobin 14.5 g/dl (14.0-18.0); Immature Granulocytes # (auto) 0.03 K/uL (0.01-0.20); Immature Granulocytes % (auto) 0.7 %; Lymphocytes # (auto) 0.84 K/uL (1.20-3.40); Mean Corpuscular Hemoglobin 33.8 pg (25.0-34.0); Mean Corpuscular Hgb Conc 36.6 g/dL (32.0-36.0); Mean Corpuscular Volume 92.3 fL (80.0-100.0); Mean Platelet Volume 9.6 fL (9.4-12.4); Monocytes # (auto) 0.62 K/uL (0.11-0.59); Monocytes % (auto) 14.8 %; Neutrophils # (auto) 2.61 K/uL (1.40-6.50); Neutrophils % (auto) 62.1 %; Platelet Count 211 K/uL (130-400); RDW Standard Deviation 43.1 fL (36.4-46.3); Red Blood Count 4.29 M/uL (4.70-6.10)
[2024-03-06 09:42] LABS: Albumin Globulin Ratio 1.9 (0.9-2); Calcium 9.5 mg/dl (8.6-10.3); Creatinine Clr Calc Pharmacy 99.2 ml/min; Globulin 2.7 gm/dl (2.5-4.0); Magnesium 1.9 mg/dl (1.7-2.4); Potassium 3.7 mmol/L (3.5-5.1); Total Protein 7.7 gm/dl (6.0-8.3)
[2024-03-06] MEDS: SODIUM CHLORIDE 0.9% 500 ML IV ONE (09:53)
--- NOTE | 2024-03-06 09:54 | History & Physical Report ---
Date of Service March 06, 2024 Assessment & Plan (1) Acute hyponatremia: (2) SIADH (syndrome of inappropriate ADH production): (3) Transaminitis: (4) Alcohol abuse: (5) Hypertension: (6) Obstructive sleep apnea: Plan 58 year old male sent from PCP office for hyponatremia on OP labs with sodium at 122. Hyponatremia- recurrent issue. Follows nephrology Dr Ugalde, last seen on 12/12/23. 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 - Sodium 121 in ED and given NSS bolus. Repeat sodium at 120. Will check serum and urine osmolality, urine sodium, uric acid. Alc level negative. TSH normal. Will admit to PCU. Will place on fluid restriction 1.5 L, urea tablet, q4hr BMP and nephro consult. Goal sodium correction upto 127-128 over next 24 hrs. Recommended to cut down on his fluids intake. Transaminitis-AST/ALT mildly elevated. likely from alcohol intake. Tick borne panel pending. Abdomen benign. Recheck in am Hypertension- continue home meds SENA on CPAP Alcohol use- drinks few beers daily, last drink last night. States he has gone days without drinking recently without any withdrawal symptoms and strongly denies possible withdrawal symptoms. Will monitor on AWSS protocol with ativan prn, thiamine, folate. Recommended to quit drinking. DVT ppx- sc lovenox Dispo- PCU tele Full code Updated at bedside Time spent- Approx 65 mins History of Present Illness Chief Complaint: Abnormal Labs Primary Care Provider: Julio Syed MD Constantino Crowell is a 58y/o M with PMHx significant for SENA on CPAP, HTN, chronic insomnia and chronic hyponatremia who presented to the ED for evaluation after being told by his PCP that his sodium level came back as 122 on routine labs drawn yesterday. History obtained from patient, at bedside and associated chart review. Sodium level is 121 in the ED this morning. Patient reports that he has not being feeling well for a few months. Mentions he feels rather lethargic. Patient generally drinks 1 coffee/day, 5-6 bottles of water (12-16oz)/day and 4-5 beers (12oz)/day. He has not been taking his Urea [2 packets/day] as he should, but has been taking his torsemide as prescribed prior to arrival. Reports he did take his Urea yesterday, however this medication makes him feel like he has to vomit. Feels nauseous intermittently and has been vomiting on/off almost every day [approximately 3x/week]. He has been experiencing some diarrhea once in a while. No fevers, body aches or chills. His last fluid intake was on the way to the hospital, he consumed ~1 bottle of water. Allergies Allergy/AdvReac Type Severity Reaction Status Date / Time No Known Allergies Allergy Unverified 01/17/21 20:43 Home Medications Medication Instructions Recorded Confirmed Type amlodipine 5 mg tablet 5 mg PO UD 01/17/21 03/06/24 History losartan 100 mg tablet 100 mg PO DAILY 01/17/21 03/06/24 History potassium chloride 20 mEq 20 meq PO DAILY 03/06/24 03/06/24 History tablet,extended release(part/cryst) (Klor-Con M) torsemide 20 mg tablet 10 mg PO DAILY 03/06/24 03/06/24 History urea 15 gram oral powder packet 1 packet PO HS 03/06/24 03/06/24 History (Ure-Na) Past Med/Surg History Problem List (Updated 03/06/24 @ 12:12 by Shaun Gomez MD) Alcohol abuse SIADH (syndrome of inappropriate ADH production) Transaminitis Acute hyponatremia Medical History Chronic insomnia Chronic hyponatremia Obstructive sleep apnea Hypertension Social History Smoking Status: Never smoker Preferred Language: Macedonian Feels Safe at Home: Yes Review of Systems Review of Systems: At least ten systems reviewed and negative, except as noted in the HPI. Physical Exam Physical Exam: General: Lying comfortably in bed, not in distress, on room air HEENT: EOMI, KIERSTEN, MMM Chest: Clear breath sounds bilaterally, no wheezes or crackles CVS: Regular rate and rhythm, normal heart sounds, no murmur Abdomen: Soft, non tender, not distended, normal bowel sounds Neuro: Awake, alert, oriented, conversing well, non focal Extremities: No cyanosis, clubbing or edema Results & Data Results & Data Vital Signs (Past 12 Hours) Vital Signs Temp Pulse Pulse Resp BP Pulse Ox O2 Del Method 03/06/24 08:26 93 H 18 98 Room Air 03/06/24 08:24 93 H 18 98 Room Air 03/06/24 08:00 89 03/06/24 07:48 36.2 C L 98 H 18 163/93 H 100 Room Air Laboratory Results Short CBC 03/06/24 Range/Units 08:10 WBC 4.20 L (4.8-10.8) K/ul Hgb 14.5 (14.0-18.0) g/dl Hct 39.6 L (42.0-52.0) % Plt Count 211 (130-400) K/uL BMP 03/06/24 03/06/24 08:10 08:58 Sodium Cancelled 121 L Potassium Cancelled 3.7 Chloride Cancelled 79 L Carbon Dioxide Cancelled 27 BUN Cancelled 15 Creatinine Cancelled 0.88 Glucose Cancelled 86 Calcium Cancelled 9.5 Liver Function 03/06/24 03/06/24 Range/Units 08:10 08:58 Total Bilirubin Cancelled 1.0 AST Cancelled 65 H ALT Cancelled 76 H Alkaline Phosphatase Cancelled 40 Albumin Cancelled 5.0 Urine 03/06/24 Range/Units 09:39 Urine Color Yellow Urine Appearance Clear (Clear) Urine pH 5.5 (4.5-7.5) Ur Specific [place] 1.008 (1.000-1.030) Urine Protein Negative (Negative) Urine Glucose (UA) Negative (Negative) Medications Administered Discontinued Medications Sodium Chloride (Nss) 500 mls @ 999 mls/hr IV .Q31M NEVA Stop: 03/06/24 08:30 Last Infusion: 03/06/24 09:40 Dose: Infused Documented By: Admin: 03/06/24 08:17 Dose: 999 mls/hr Documented By: ILANA Sodium Chloride (Nss) 500 mls @ 999 mls/hr IV .Q31M ONE Stop: 03/06/24 10:18 Last Admin: 03/06/24 09:53 Dose: 999 mls/hr Documented By: RACHEL Code Status & VTE Plan Code Status FULL CODE Supervising Physician Co-Signing Physician Notes Patient was seen and examined with Angelica NICOLE at bedside. Chart reviewed. Case discussed with Angelica and agree with the documentation above and I have made the changes wherever necessary.
[2024-03-06 09:56] LABS: Appearance Urine Clear (Clear); Bilirubin Urine Negative (Negative); Blood Urine Negative (Negative); Color Urine Yellow; Glucose Urine UA Negative (Negative); Ketones Urine Trace (Negative); Leukocyte Esterase Urine Negative (Negative); Nitrite Urine Negative (Negative); Protein Urine Negative (Negative); Specific Gravity Urine 1.008 (1.000-1.030); Urobilinogen Urine Negative (Negative); pH Urine 5.5 (4.5-7.5)
[2024-03-06 09:57] LABS: Thyroid Stimulating Hormone 1.369 uIu/ml (0.300-4.500)
[2024-03-06] MEDS: UREA (UREA-NA) 15 GM PACK PO SCH (10:47)
[2024-03-06 11:08] LABS: Calcium 8.9 mg/dl (8.6-10.3); Potassium 3.6 mmol/L (3.5-5.1)
[2024-03-06 11:09] LABS: Calcium 8.9 mg/dl (8.6-10.3); Potassium 3.7 mmol/L (3.5-5.1)
[2024-03-06 11:14] LABS: BUN Creatinine Ratio 17.9 (10-20); Creatinine Clr Calc Pharmacy 103.9 ml/min; Est GFR (African American) 111.1 ml/min; Est GFR (Non-African American) 95.8 ml/min; Uric Acid 6.3 mg/dl (2.6-7.2)
--- NOTE | 2024-03-06 11:29 | Nephrology Consultation ---
Date of Consultation March 06, 2024 Assessment & Plan (1) Acute hyponatremia: Patient with hyponatremia due to syndrome of inappropriate ADH. He has symptoms osmolality of 252. Patient drinks alcohol 4-5 beers daily and is also drinking way more than he should. Urine studies are pending. Will continue urea 15 g twice daily. Treat his nausea and vomiting aggressively with Zofran as needed. Fluid limit to 1.5 L daily. Okay to monitor sodium twice daily.Ultimately patient needs to quit alcohol. (2) Transaminitis: Likely due to alcoholic liver disease. Discussed briefly need to quit alcohol. History of Present Illness Reason for Consultation: Hyponatremia History of Present Illness This is a 58-year-old male with history of hypertension, obstructive sleep apnea on CPAP, chronic hyponatremia on urea at home 15 g twice daily but does not take it regularly due to bad taste and stomach upset who was admitted on recommendation of PCP with outpatient sodium of 122. Patient reports drinks 6 bottles of water daily and also drinks 4-5 beers daily. He reports intermittent nausea and vomiting. No nausea or vomiting at the moment. No shortness of breath. No leg swelling. Labs only showing sodium of 120 this morning with a serum osmolality of 252. He also has a AST of 65 and ALT of 76. Allergies Allergy/AdvReac Type Severity Reaction Status Date / Time No Known Allergies Allergy Unverified 01/17/21 20:43 Home Medications Medication Instructions Recorded Confirmed Type amlodipine 5 mg tablet 5 mg PO UD 01/17/21 03/06/24 History losartan 100 mg tablet 100 mg PO DAILY 01/17/21 03/06/24 History potassium chloride 20 mEq 20 meq PO DAILY 03/06/24 03/06/24 History tablet,extended release(part/cryst) (Klor-Con M) torsemide 20 mg tablet 10 mg PO DAILY 03/06/24 03/06/24 History urea 15 gram oral powder packet 1 packet PO HS 03/06/24 03/06/24 History (Ure-Na) Patient History Medical History Chronic insomnia Chronic hyponatremia Obstructive sleep apnea Hypertension Social History Smoking Status: Never smoker Preferred Language: Macedonian Feels Safe at Home: Yes Review of Systems 2 Review of Systems: All other systems were reviewed and negative except as noted in HPI Physical Exam 2 Physical Exam: General exam: Appears comfortable, no acute distress HEENT: Pupils are equal and reactive to light Neck: No JVD, neck is supple trachea is midline Respiratory system: Clear breath sounds bilaterally. Gastrointestinal: Abdomen is soft, non distended, non tender, bowel sounds are present CVS: Regular rate and rhythm. No murmurs, rubs or gallops Musculoskeletal: No joint or muscle tenderness Extremities: Non tender, no edema, peripheral pulses are present Neuro: Oriented, no tremors, no focal neurological deficits Skin: No rashes Results & Data Vital Signs (Past 12 Hours) Vital Signs Temp Pulse Pulse Resp BP Pulse Ox O2 Del Method 03/06/24 08:26 93 H 18 98 Room Air 03/06/24 08:24 93 H 18 98 Room Air 03/06/24 08:00 89 03/06/24 07:48 36.2 C L 98 H 18 163/93 H 100 Room Air Laboratory Results 03/06/24 10:18 03/06/24 03/06/24 08:10 08:58 WBC 4.20 L RBC 4.29 L MCV 92.3 MCH 33.8 MCHC 36.6 H RDW Std Deviation 43.1 RDW Coeff of Ayana 13.0 Plt Count 211 MPV 9.6 Albumin Cancelled 5.0
[2024-03-06] MEDS: POTASSIUM CHLORIDE CRTAB 20 MEQ TABCR PO ONE (11:50)
[2024-03-06 11:51] LABS: Lyme Screen Rflx Confirmation Positive (Negative)
--- NOTE | 2024-03-06 12:19 | Electrocardiogram Report ---
Test Reason : Blood Pressure : */* mmHG Vent. Rate : 83 BPM Atrial Rate : 83 BPM P-R Int : 180 ms QRS Dur : 96 ms QT Int : 396 ms P-R-T Axes : 35 27 45 degrees QTcB Int : 465 ms Normal sinus rhythm Possible Left atrial enlargement Cannot rule out Anterior infarct , age undetermined Abnormal ECG When compared with ECG of 17-Jan-2021 20:00, Minimal criteria for Anterior infarct are now Present Confirmed by Nish Green ([id number]) on 03/06/2024 12:18:36 PM Referred By: Confirmed By: Nish Green
[2024-03-06 13:29] LABS: Lyme Ab IgG 2nd Tier Confirm Positive (Negative); Lyme Ab IgM 2nd Tier Confirm Negative (Negative)
[2024-03-06] MEDS ORDERED: Ativan IV Alcohol Withdrawal--Active Protocol IV PRN (13:45)
[2024-03-06] MEDS ORDERED: LORazepam 3 MG in SYRINGE 1.5 ML IV PRN (13:45)
[2024-03-06] MEDS ORDERED: LORazepam 1 MG in SYRINGE 0.5 ML IV PRN (13:45)
[2024-03-06] MEDS ORDERED: LORazepam 2 MG in SYRINGE 1 ML IV PRN (13:45)
[2024-03-06] MEDS: THIAMINE HCL 100 MG TAB PO SCH (17:16)
[2024-03-06 18:14] LABS: BUN Creatinine Ratio 28.7 (10-20); Calcium 9.3 mg/dl (8.6-10.3); Creatinine Clr Calc Pharmacy 92.9 ml/min; Est GFR (African American) 102.4 ml/min; Est GFR (Non-African American) 88.4 ml/min; Potassium 3.8 mmol/L (3.5-5.1)
[2024-03-06] MEDS: amLODIPine BESYLATE 5 MG TAB PO SCH (20:03)
[2024-03-06] MEDS: ONDANSETRON INJ 2 MG/ML 2 ML VIAL IV PRN (20:15)
[2024-03-06 22:58] LABS: BUN Creatinine Ratio 33.9 (10-20); Calcium 9.4 mg/dl (8.6-10.3); Est GFR (African American) 77.8 ml/min; Est GFR (Non-African American) 67.1 ml/min; Potassium 3.9 mmol/L (3.5-5.1)
[2024-03-07 06:04] LABS: Hematocrit (blood only) 35.4 % (42.0-52.0); Hemoglobin 12.7 g/dl (14.0-18.0); Mean Corpuscular Hgb Conc 35.9 g/dL (32.0-36.0); Mean Corpuscular Volume 94.7 fL (80.0-100.0); Mean Platelet Volume 9.6 fL (9.4-12.4); Platelet Count 197 K/uL (130-400); RDW Standard Deviation 45.3 fL (36.4-46.3); Red Blood Count 3.74 M/uL (4.70-6.10); White Blood Count 3.48 K/ul (4.8-10.8)
[2024-03-07 06:17] LABS: Albumin Globulin Ratio 1.9 (0.9-2); Albumin Level 4.1 gm/dl (3.4-5.0); BUN Creatinine Ratio 30.9 (10-20); Bilirubin,Total 0.7 mg/dl (0.2-1.0); Calcium 9.4 mg/dl (8.6-10.3); Est GFR (African American) 98.6 ml/min; Est GFR (Non-African American) 85.1 ml/min; Globulin 2.2 gm/dl (2.5-4.0); Magnesium 2.1 mg/dl (1.7-2.4); Phosphorus 4.1 mg/dl (2.5-4.9); Total Protein 6.3 gm/dl (6.0-8.3)
[2024-03-07] MEDS: FOLIC ACID 1 MG TAB PO SCH (09:13)
[2024-03-07] MEDS: ENOXAPARIN INJ 40 MG/0.4 ML SYR SQ SCH (09:13)
[2024-03-07] MEDS: POTASSIUM CHLORIDE CRTAB 20 MEQ TABCR PO SCH (09:14)
[2024-03-07] MEDS: LOSARTAN POTASSIUM 50 MG TAB PO SCH (09:14)
--- NOTE | 2024-03-07 13:49 | Hospitalist Progress Note ---
Date of Service March 07, 2024 Assessment & Plan (1) Acute hyponatremia: (2) SIADH (syndrome of inappropriate ADH production): (3) Transaminitis: (4) Alcohol abuse: (5) Hypertension: (6) Obstructive sleep apnea: Plan 58 year old male sent from PCP office for hyponatremia on OP labs with sodium at 122. Hyponatremia Recurrent Issue Secondary to SIADH Alcohol use contributing as well Sodium:120>124>126 Normal TSH Continue fluid restriction Continue urea 15 mg twice a day Appreciate nephrology input Antiemetics to minimize nausea Monitor sodium levels closely Counseled to quit alcohol use Home torsemide currently on hold Transaminitis AST/ALT mildly elevated likely from alcohol intake Alcohol use disorder Counseled to quit drinking alcohol Continue thiamine, folic acid Monitor for withdrawal Hypertension Continue amlodipine, losartan Monitor BP SENA CPAP HS DVT Px: Lovenox SQ Code Status Full code Admission and Anticipated Discharge Date Admission Date: March 06, 2024 Subjective Patient is seen and examined at bedside Nausea resolved Ambulating in hallway with no issues Patient offers no new complaints today Denies any chest pain, dyspnea, vomiting, abdominal pain Sodium level 126 today Review of Systems Review of Systems: All systems reviewed & are unremarkable except as noted in Subjective Physical Exam Physical Exam: Physical Exam: Vitals signs as noted above General Appearance:Moderately built and nourished, no apparent distress Head: normocephalic, Atraumatic Eyes: normal inspection, EOMI Neck: supple, Trachea midline Respiratory/Chest: Normal breath sounds, CTA, No accessory muscle use Cardiovascular: S1, S2, No murmur Abdomen/GI:Soft, Non tender, Bowel sounds present Extremities/Musculoskeletal:normal inspection, no edema Neurologic/Psych:AAOX3, grossly no focal neurological deficits Skin: normal color, warm Results & Data Results & Data Vital Signs (Past 12 Hours) Vital Signs Temp Pulse Pulse Resp BP Pulse Ox O2 Del Method 03/07/24 11:16 36.8 C 91 H 17 119/63 99 Room Air 03/07/24 08:08 74 03/07/24 07:40 Room Air 03/07/24 07:40 36.4 C L 65 18 145/84 H 96 Room Air 03/07/24 03:19 36.6 C 72 18 128/81 98 Room Air Laboratory Results Short CBC 03/07/24 Range/Units 05:18 WBC 3.48 L (4.8-10.8) K/ul Hgb 12.7 L (14.0-18.0) g/dl Hct 35.4 L (42.0-52.0) % Plt Count 197 (130-400) K/uL BMP 03/06/24 03/06/24 03/07/24 17:39 22:28 05:18 Sodium 124 L 124 L 126 L Potassium 3.8 3.9 4.0 Chloride 86 L 87 L 89 L Carbon Dioxide 29 30 29 BUN 27 H 40 H 30 H Creatinine 0.94 1.18 0.97 Glucose 145 H 131 H 106 H Calcium 9.3 9.4 9.4 Liver Function 03/07/24 Range/Units 05:18 Total Bilirubin 0.7 (0.2-1.0) mg/dl AST 36 (13-39) U/L ALT 51 (7-52) U/L Alkaline Phosphatase 33 L (34-104) U/L Albumin 4.1 (3.4-5.0) gm/dl
[2024-03-08] MEDS: LORazepam 0.5 MG TAB PO PRN (03:25)
[2024-03-08 06:39] LABS: BUN Creatinine Ratio 29.9 (10-20); Calcium 9.2 mg/dl (8.6-10.3); Est GFR (African American) 98.6 ml/min; Est GFR (Non-African American) 85.1 ml/min
--- NOTE | 2024-03-08 15:03 | Hospitalist Progress Note ---
Date of Service March 08, 2024 Assessment & Plan (1) Acute hyponatremia: (2) SIADH (syndrome of inappropriate ADH production): (3) Transaminitis: (4) Alcohol abuse: (5) Hypertension: (6) Obstructive sleep apnea: Plan 58 year old male sent from PCP office for hyponatremia on OP labs with sodium at 122. Hyponatremia Recurrent Issue Secondary to SIADH Alcohol use contributing as well Sodium:120>124>126>128 Normal TSH Continue fluid restriction Continue urea 15 mg twice a day Appreciate nephrology input Antiemetics as needed Monitor sodium levels closely Counseled to quit alcohol use Home torsemide currently on hold Nausea resolved Needs follow-up with nephrology on discharge Transaminitis AST/ALT mildly elevated likely from alcohol intake Alcohol use disorder Counseled to quit drinking alcohol Continue thiamine, folic acid Monitor for withdrawal Hypertension Continue amlodipine, losartan Monitor BP SENA CPAP HS DVT Px: Lovenox SQ Code Status Full code Admission and Anticipated Discharge Date Admission Date: March 06, 2024 Subjective Patient is seen and examined at bedside States feeling well today No new complaints Denies any chest pain, dyspnea, vomiting, abdominal pain Review of Systems Review of Systems: All systems reviewed & are unremarkable except as noted in Subjective Physical Exam Physical Exam: Physical Exam: Vitals signs as noted above General Appearance:Moderately built and nourished, no apparent distress Head: normocephalic, Atraumatic Eyes: normal inspection, EOMI Neck: supple, Trachea midline Respiratory/Chest: Normal breath sounds, CTA, No accessory muscle use Cardiovascular: S1, S2, No murmur Abdomen/GI:Soft, Non tender, Bowel sounds present Extremities/Musculoskeletal:normal inspection, no edema Neurologic/Psych:AAOX3, grossly no focal neurological deficits Skin: normal color, warm Results & Data Results & Data Vital Signs (Past 12 Hours) Vital Signs Temp Pulse Pulse Resp BP Pulse Ox O2 Del Method 03/08/24 07:50 69 03/08/24 07:49 36.7 C 72 16 145/85 H 97 Room Air 03/08/24 03:46 36.7 C 73 18 117/74 97 Room Air Laboratory Results [facility] 03/08/24 05:30 Sodium 128 L Potassium 4.0 Chloride 93 L Carbon Dioxide 28 BUN 29 H Creatinine 0.97 Glucose 114 H Calcium 9.2
[2024-03-09 06:21] LABS: Hematocrit (blood only) 32.4 % (42.0-52.0); Hemoglobin 11.4 g/dl (14.0-18.0); Mean Corpuscular Hgb Conc 35.2 g/dL (32.0-36.0); Mean Corpuscular Volume 96.7 fL (80.0-100.0); Mean Platelet Volume 9.7 fL (9.4-12.4); Platelet Count 194 K/uL (130-400); RDW Standard Deviation 46.4 fL (36.4-46.3); Red Blood Count 3.35 M/uL (4.70-6.10); White Blood Count 3.31 K/ul (4.8-10.8)
[2024-03-09 06:28] LABS: BUN Creatinine Ratio 31.7 (10-20); Creatinine Clr Calc Pharmacy 106.5 ml/min; Est GFR (African American) 112.2 ml/min; Est GFR (Non-African American) 96.8 ml/min; Magnesium 1.9 mg/dl (1.7-2.4); Potassium 4.3 mmol/L (3.5-5.1)
--- NOTE | 2024-03-09 13:15 | Hospitalist Progress Note ---
Date of Service March 09, 2024 Assessment & Plan (1) Acute hyponatremia: (2) SIADH (syndrome of inappropriate ADH production): (3) Transaminitis: (4) Alcohol abuse: (5) Hypertension: (6) Obstructive sleep apnea: Plan 58 year old male sent from PCP office for hyponatremia on OP labs with sodium at 122. Hyponatremia Recurrent Issue Secondary to SIADH Alcohol use contributing as well Sodium:120>124>126>128>129 Normal TSH Continue fluid restriction to 1.5 L a day Continue urea 15 mg twice a day Appreciate nephrology input and recommendation Antiemetics as needed Clinically much better and the weakness is resolved He has been ambulating in the hallway without any difficulties Will need outpatient follow-up with the [employer] travel counselor Transaminitis AST/ALT mildly elevated likely from alcohol intake Alcohol use disorder Counseled to quit drinking alcohol Continue thiamine, folic acid Monitor for withdrawal Hypertension Continue amlodipine, losartan Monitor BP SENA CPAP HS DVT Px: Lovenox SQ Code Status Full code Admission and Anticipated Discharge Date Admission Date: March 06, 2024 Subjective 03/09/2024 The patient was seen and examined in telemetry unit He has been feeling much better and the weakness is resolved Denies any other significant symptoms Review of Systems Review of Systems: All systems reviewed and are unremarkable except as noted below Physical Exam Physical Exam: Lying in bed without any acute distress Constitutional: well developed, well nourished and average body habitus; not ill appearing Eyes: PERRL, conjunctivae normal, anicteric sclerae ENMT: external ear and nose normal, oropharynx normal Neck: trachea midline, no thyromegaly Respiratory: no respiratory distress Auscultation: lungs clear to auscultat ion bilaterally Cardiovascular: Rate/Rhythm: regular rate and regular rhythm; not tachycardic Heart Sounds: normal S1 and normal S2; no murmur Extremities: no edema Gastrointestinal (Abdomen): Inspection/Auscultation: normal bowel sounds; abdomen not distended Percussion/Palpation: abdomen soft; abdomen nontender Musculoskeletal: No acute arthritis involving any of the joints Neurologic: normal touch/pain/proprioception and moves all extremities; no focal motor deficits Psychiatric: A+Ox3, euthymic affect Lymphatic: no cervical or axillary lymphadenopathy Results & Data Results & Data Vital Signs (Past 12 Hours) Vital Signs Temp Pulse Pulse Resp BP Pulse Ox O2 Del Method 03/09/24 12:00 36.6 C 72 18 124/72 96 Room Air 03/09/24 07:50 36.7 C 74 18 121/63 99 Room Air 03/09/24 07:13 68 03/09/24 04:00 36.4 C L 70 18 126/82 96 Room Air Laboratory Results Short CBC 03/09/24 Range/Units 05:16 WBC 3.31 L (4.8-10.8) K/ul Hgb 11.4 L (14.0-18.0) g/dl Hct 32.4 L (42.0-52.0) % Plt Count 194 (130-400) K/uL BMP 03/09/24 05:16 Sodium 129 L Potassium 4.3 Chloride 97 L Carbon Dioxide 25 BUN 26 H Creatinine 0.82 Glucose 101 H Calcium 9.0 Medications Administered Current Inpatient Medications Amlodipine Besylate (Amlodipine Besylate 5 Mg Tab) 10 mg PO DAILY [facility] Stop: 04/05/24 13:44 Last Admin: 03/09/24 08:42 Dose: 10 mg Enoxaparin Sodium (Enoxaparin Inj 40 Mg/0.4 Ml Syr) 40 mg SQ QAM [facility] [place] Stop: 04/06/24 08:59 Last Admin: 03/09/24 08:42 Dose: 40 mg Folic Acid (Folic Acid 1 Mg Tab) 1 mg PO QAM [facility] [place] Stop: 04/06/24 08:59 Last Admin: 03/09/24 08:42 Dose: 1 mg Lorazepam 1 mg/ Syringe 1 mls @ 2 mls/min IV UD PRN; Protocol PRN Reason: EtOH Withdrawal AWSS Score 6,7 Stop: 04/05/24 13:44 Lorazepam 2 mg/ Syringe 2 mls @ 2 mls/min IV UD PRN; Protocol PRN Reason: EtOH Withdrawal AWSS Score 8,9 Stop: 04/05/24 13:44 Lorazepam 3 mg/ Syringe 3 mls @ 2 mls/min IV ONCE PRN; Protocol PRN Reason: EtOH Withdrawal AWSS Score 10+ Lorazepam (Lorazepam 0.5 Mg Tab) 0.25 mg PO HS PRN PRN Reason: insomnia Stop: 04/07/24 02:37 Last Admin: 03/08/24 22:20 Dose: 0.25 mg Losartan Potassium (Losartan Potassium 50 Mg Tab) 100 mg PO DAILY [facility] [place] Stop: 04/06/24 08:59 Last Admin: 03/09/24 08:42 Dose: 100 mg Ondansetron HCl (Ondansetron Inj 2 Mg/Ml 2 Ml Vial) 4 mg IV Q4H PRN PRN Reason: Nausea Stop: 04/05/24 13:44 Last Admin: 03/07/24 10:31 Dose: 4 mg Potassium Chloride (Potassium Chloride Crtab 20 Meq Tabcr) 40 meq PO QAM [facility] [place] Stop: 04/06/24 08:59 Last Admin: 03/09/24 08:44 Dose: 40 meq Thiamine HCl (Thiamine Hcl 100 Mg Tab) 100 mg PO QAM [facility] [place] Stop: 04/05/24 13:44 Last Admin: 03/09/24 08:42 Dose: 100 mg Urea (Urea (Urea-Na) 15 Gm Pack) 15 gm PO BID [facility] [place] Stop: 04/05/24 10:29 Last Admin: 03/09/24 08:42 Dose: 15 gm
[2024-03-09 23:17] LABS: Babesia microti DNA Not Detected (Not Detected)
[2024-03-10 06:35] LABS: BUN Creatinine Ratio 26.2 (10-20); Calcium 8.9 mg/dl (8.6-10.3); Creatinine Clr Calc Pharmacy 103.9 ml/min; Est GFR (African American) 111.1 ml/min; Est GFR (Non-African American) 95.8 ml/min; Potassium 4.5 mmol/L (3.5-5.1)
--- NOTE | 2024-03-10 11:18 | Communication Note ---
created in error
--- NOTE | 2024-03-10 14:12 | Hospitalist Progress Note ---
Date of Service March 10, 2024 Assessment & Plan (1) Acute hyponatremia: (2) SIADH (syndrome of inappropriate ADH production): (3) Transaminitis: (4) Alcohol abuse: (5) Hypertension: (6) Obstructive sleep apnea: Plan 58 year old male sent from PCP office for hyponatremia on OP labs with sodium at 122. Hyponatremia Recurrent Issue Secondary to SIADH Alcohol use contributing as well Sodium:120>124>126>128>129 Normal TSH Continue fluid restriction to 1.5 L a day Continue urea 15 gm twice a day Appreciate nephrology input and recommendation Antiemetics as needed Clinically much better and the weakness is resolved He has been ambulating in the hallway without any difficulties Has been feeling much better and wants to be discharged Unfortunately sodium level has gone down to 127 today again without any symptoms Discussed with devulcanizer charger and he will be evaluated by nephrology this afternoon prior to discharge He does not want to stay any longer in the hospital Transaminitis AST/ALT mildly elevated likely from alcohol intake Alcohol use disorder Counseled to quit drinking alcohol Continue thiamine, folic acid Monitor for withdrawal-No signs and or symptoms of withdrawal Strongly advised to quit drinking Hypertension Continue amlodipine, losartan Monitor BP SENA CPAP HS DVT Px: Lovenox SQ Code Status Full code Admission and Anticipated Discharge Date Admission Date: March 06, 2024 Subjective 03/09/2024 The patient was seen and examined in telemetry unit He has been feeling much better and the weakness is resolved Denies any other significant symptoms 03/10/2024 The patient was seen and examined in telemetry unit He has been feeling much better and wants to go home His sodium has gone down to 127 He will be seen by devulcanizer charger this afternoon prior to discharge Review of Systems Review of Systems: All systems reviewed and are unremarkable except as noted below Physical Exam Physical Exam: Lying in bed without any acute distress Constitutional: well developed, well nourished and average body habitus; not ill appearing Eyes: PERRL, conjunctivae normal, anicteric sclerae ENMT: external ear and nose normal, oropharynx normal Neck: trachea midline, no thyromegaly Respiratory: no respiratory distress Auscultation: lungs clear to auscultation bilaterally Cardiovascular: Rate/Rhythm: regular rate and regular rhythm; not tachycardic Heart Sounds: normal S1 and normal S2; no murmur Extremities: no edema Gastrointestinal (Abdomen): Inspection/Auscultation: normal bowel sounds; abdomen not distended Percussion/Palpation: abdomen soft; abdomen nontender Neurologic: normal touch/pain/proprioception and moves all extremities; no focal motor deficits Psychiatric: A+Ox3, euthymic affect Lymphatic: no cervical or axillary lymphadenopathy Results & Data Results & Data Vital Signs (Past 12 Hours) Vital Signs Temp Pulse Pulse Resp BP Pulse Ox O2 Del Method 03/10/24 10:51 36.5 C 72 20 129/83 99 Room Air 03/10/24 07:23 36.7 C 70 17 132/84 99 Room Air 03/10/24 07:00 63 03/10/24 02:40 36.7 C 64 16 129/83 98 Room Air Laboratory Results [facility] 03/10/24 05:38 Sodium 127 L Potassium 4.5 Chloride 98 Carbon Dioxide 23 BUN 22 Creatinine 0.84 Glucose 99 Calcium 8.9 Medications Administered Current Inpatient Medications Amlodipine Besylate (Amlodipine Besylate 5 Mg Tab) 10 mg PO DAILY [facility] Stop: 04/05/24 13:44 Last Admin: 03/10/24 08:53 Dose: 10 mg Enoxaparin Sodium (Enoxaparin Inj 40 Mg/0.4 Ml Syr) 40 mg SQ QAM [facility] Stop: 04/06/24 08:59 Last Admin: 03/10/24 08:54 Dose: 40 mg Folic Acid (Folic Acid 1 Mg Tab) 1 mg PO QAM [facility] Stop: 04/06/24 08:59 Last Admin: 03/10/24 08:53 Dose: 1 mg Lorazepam 1 mg/ Syringe 1 mls @ 2 mls/min IV UD PRN; Protocol PRN Reason: EtOH Withdrawal AWSS Score 6,7 Stop: 04/05/24 13:44 Lorazepam 2 mg/ Syringe 2 mls @ 2 mls/min IV UD PRN; Protocol PRN Reason: EtOH Withdrawal AWSS Score 8,9 Stop: 04/05/24 13:44 Lorazepam 3 mg/ Syringe 3 mls @ 2 mls/min IV ONCE PRN; Protocol PRN Reason: EtOH Withdrawal AWSS Score 10+ Lorazepam (Lorazepam 0.5 Mg Tab) 0.25 mg PO HS PRN PRN Reason: insomnia Stop: 04/07/24 02:37 Last Admin: 03/08/24 22:20 Dose: 0.25 mg Losartan Potassium (Losartan Potassium 50 Mg Tab) 100 mg PO DAILY [facility] Stop: 04/06/24 08:59 Last Admin: 03/10/24 08:53 Dose: 100 mg Ondansetron HCl (Ondansetron Inj 2 Mg/Ml 2 Ml Vial) 4 mg IV Q4H PRN PRN Reason: Nausea Stop: 04/05/24 13:44 Last Admin: 03/07/24 10:31 Dose: 4 mg Potassium Chloride (Potassium Chloride Crtab 20 Meq Tabcr) 40 meq PO QAM [facility] Stop: 04/06/24 08:59 Last Admin: 03/10/24 08:55 Dose: 40 meq Thiamine HCl (Thiamine Hcl 100 Mg Tab) 100 mg PO QAM [facility] Stop: 04/05/24 13:44 Last Admin: 03/10/24 08:53 Dose: 100 mg Urea (Urea (Urea-Na) 15 Gm Pack) 15 gm PO BID [facility] Stop: 04/05/24 10:29 Last Admin: 03/10/24 08:54 Dose: 15 gm
--- NOTE | 2024-03-10 17:04 | Nephrology Progress Note ---
Date of Service March 10, 2024 Assessment & Plan (1) Acute hyponatremia: Plan: Patient with hyponatremia due to syndrome of inappropriate ADH. He has symptoms osmolality of 252. Patient drinks alcohol 4-5 beers daily and is also drinking way more than he should. >increase urea to 30 gm bid >stop amlodipine; start torsemide 20 mg daily, first dose now >repeat BMP in AM >>cont FR 1.5L >will need close in f/u w/ Dr Ugalde -reinforced need to quit alcohol and to follow FR care coordinated w/ Dr Mcgarry (2) Transaminitis: Plan: Likely due to alcoholic liver disease. Discussed need to quit alcohol. Admission and Anticipated Discharge Date Admission Date: March 06, 2024 Subjective no interval events. anxious for d/c; pacing. no sob, no edema, no ascites Review of Systems 2 Review of Systems: All systems reviewed & are unremarkable except as noted in Subjective Physical Exam 2 Constitutional: well developed and well nourished Eyes: EOM intact bilaterally ENMT: Ears: no external ear abnormality Nose: no external nose abnormality Mouth: + dry oral mucous membranes Neck: no nuchal rigidity Respiratory: normal respiratory effort Auscultation: + diminished lung sounds Cardiovascular: Rate/Rhythm: + tachycardic Extremities: no edema Gastrointestinal (Abdomen): Inspection/Auscultation: normal bowel sounds P ercussion/Palpation: abdomen soft; abdomen nontender Musculoskeletal: Extremities: strength 5/5 throughout Skin: no rashes, warm and dry Neurologic: rodríguez, fluent speech, no tremor Psychiatric: Orientation: alert and oriented x 3 Results & Data Vital Signs (Past 12 Hours) Vital Signs Temp Pulse Pulse Resp BP Pulse Ox O2 Del Method 03/10/24 15:24 36.7 C 78 21 144/81 H 100 Room Air 03/10/24 15:17 79 03/10/24 10:51 36.5 C 72 20 129/83 99 Room Air 03/10/24 07:23 36.7 C 70 17 132/84 99 Room Air 03/10/24 07:00 63 Laboratory Results 03/09/24 05:16 03/10/24 05:38
[2024-03-10] MEDS: TORSEMIDE 20 MG TAB PO SCH (17:49)
[2024-03-10] MEDS: UREA (UREA-NA) 15 GM PACK PO SCH (20:13)
[2024-03-11 08:35] LABS: BUN Creatinine Ratio 41.9 (10-20); Calcium 9.8 mg/dl (8.6-10.3); Creatinine Clr Calc Pharmacy 83.1 ml/min; Est GFR (African American) 89.6 ml/min; Est GFR (Non-African American) 77.3 ml/min; Potassium 4.3 mmol/L (3.5-5.1)
[2024-03-11 10:55] VITALS: BP 118/77; PULSE 89; RESP 18; TEMP 97.5; O2SAT 98
--- NOTE | 2024-03-11 11:05 | Nephrology Progress Note ---
Date of Service March 11, 2024 Assessment & Plan (1) Acute hyponatremia: Plan: Patient with hyponatremia due to syndrome of inappropriate ADH. His presenting serum osmolality was 252. Patient drinks alcohol 4-5 beers daily and is also drinking way more fluids than he should. 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 Discussed need to quit alcohol. Admission and Anticipated Discharge Date Admission Date: March 06, 2024 Subjective seen on mid AM rounds; no n/v, no balance concerns, no edema, no sob; tolerating meds and po Review of Systems 2 Review of Systems: All systems reviewed & are unremarkable except as noted in Subjective Physical Exam 2 Constitutional: well developed and well nourished Eyes: EOM intact bilaterally ENMT: Ears: no external ear abnormality Nose: no external nose abnormality Mouth: + dry oral mucous membranes Neck: no nuchal rigidity Respiratory: normal respiratory effort Auscultation: + diminished lung sounds Cardiovascular: Rate/Rhythm: + tachycardic Extremities: no edema Gastrointestinal (Abdomen): Inspection/Auscultation: normal bowel sounds P ercussion/Palpation: abdomen soft; abdomen nontender Musculoskeletal: Extremities: strength 5/5 throughout Skin: no rashes, warm and dry Psychiatric: Orientation: alert and oriented x 3 Results & Data Vital Signs (Past 12 Hours) Vital Signs Temp Pulse Pulse Resp BP BP Pulse Ox 03/11/24 10:54 36.4 C L 89 18 118/77 98 03/11/24 07:27 68 03/11/24 07:13 36.7 C 79 16 110/73 100 03/11/24 02:30 36.6 C 71 16 127/80 96 O2 Del Method 03/11/24 10:54 Room Air 03/11/24 07:27 03/11/24 07:13 Room Air 03/11/24 02:30 Room Air Laboratory Results 03/09/24 05:16 03/11/24 07:52
--- NOTE | 2024-03-11 11:08 | Hospitalist Progress Note ---
Date of Service March 11, 2024 Assessment & Plan (1) Acute hyponatremia: (2) SIADH (syndrome of inappropriate ADH production): (3) Transaminitis: (4) Alcohol abuse: (5) Hypertension: (6) Obstructive sleep apnea: Plan 58 year old male sent from PCP office for hyponatremia on OP labs with sodium at 122. Hyponatremia Recurrent Issue Secondary to SIADH Alcohol use contributing as well Sodium:120>124>126>128>129 Normal TSH Continue fluid restriction to 1.5 L a day Continue urea 15 gm twice a day Appreciate nephrology input and recommendation Antiemetics as needed Clinically much better and the weakness is resolved He has been ambulating in the hallway without any difficulties Has been feeling much better and wants to be discharged Unfortunately sodium level has gone down to 127 today again without any symptoms Discussed with gas pumping station supervisor and he will be evaluated by nephrology this afternoon prior to discharge Sodium level has been up at 130 on 03/11/2024 Doses of urea and torsemide have been adjusted by the gas pumping station supervisor He will be discharged home this afternoon with close follow-up with the gas pumping station supervisor Transaminitis AST/ALT mildly elevated likely from alcohol intake Strongly advised to quit drinking Alcohol use disorder Counseled to quit drinking alcohol Continue thiamine, folic acid Monitor for withdrawal-No signs and or symptoms of withdrawal Strongly advised to quit drinking Hypertension Continue amlodipine, losartan Monitor BP SENA CPAP HS DVT Px: Lovenox SQ Code Status Full code Admission and Anticipated Discharge Date Admission Date: March 06, 2024 Subjective 03/09/2024 The patient was seen and examined in telemetry unit He has been feeling much better and the weakness is resolved Denies any other significant symptoms 03/10/2024 The patient was seen and examined in telemetry unit He has been feeling much better and wants to go home His sodium has gone down to 127 He will be seen by gas pumping station supervisor this afternoon prior to discharge 03/11/2024 The patient was seen and examined in telemetry unit He has been feeling much better and the sodium level has gone up to 130 He denies any significant symptoms He will be discharged home this afternoon Review of Systems Review of Systems: All systems reviewed and are unremarkable except as noted below Physical Exam Physical Exam: Sitting on a chair without any acute distress Constitutional: well developed, well nourished and average body habitus; not ill appearing Eyes: PERRL, conjunctivae normal, anicteric sclerae ENMT: external ear and nose normal, oropharynx normal Neck: trachea midline, no thyromegaly Respiratory: no respiratory distress Auscultation: lungs clear to auscultation bilaterally Cardiovascular: Rate/Rhythm: regular rate and regular rhythm; not tachycardic Heart Sounds: normal S1 and normal S2; no murmur Extremities: no edema Gastrointestinal (Abdomen): Inspection/Auscultation: normal bowel sounds; abdomen not distended Percussion/Palpation: abdomen soft; abdomen nontender Neurologic: normal touch/pain/proprioception and moves all extremities; no focal motor deficits Psychiatric: A+Ox3, euthymic affect Lymphatic: no cervical or axillary lymphadenopathy Results & Data Results & Data Vital Signs (Past 12 Hours) Vital Signs Temp Pulse Pulse Resp BP BP Pulse Ox 03/11/24 10:54 36.4 C L 89 18 118/77 98 03/11/24 07:27 68 03/11/24 07:13 36.7 C 79 16 110/73 100 03/11/24 02:30 36.6 C 71 16 127/80 96 O2 Del Method 03/11/24 10:54 Room Air 03/11/24 07:27 03/11/24 07:13 Room Air 03/11/24 02:30 Room Air Laboratory Results BMP 03/11/24 07:52 Sodium 130 L Potassium 4.3 Chloride 95 L Carbon Dioxide 27 BUN 44 H D Creatinine 1.05 Glucose 98 Calcium 9.8 Medications Administered Current Inpatient Medications Enoxaparin Sodium (Enoxaparin Inj 40 Mg/0.4 Ml Syr) 40 mg SQ QAM [facility] Stop: 04/06/24 08:59 Last Admin: 03/11/24 09:28 Dose: 40 mg Folic Acid (Folic Acid 1 Mg Tab) 1 mg PO QAM [facility] Stop: 04/06/24 08:59 Last Admin: 03/11/24 09:27 Dose: 1 mg Lorazepam 1 mg/ Syringe 1 mls @ 2 mls/min IV UD PRN; Protocol PRN Reason: EtOH Withdrawal AWSS Score 6,7 Stop: 04/05/24 13:44 Lorazepam 2 mg/ Syringe 2 mls @ 2 mls/min IV UD PRN; Protocol PRN Reason: EtOH Withdrawal AWSS Score 8,9 Stop: 04/05/24 13:44 Lorazepam 3 mg/ Syringe 3 mls @ 2 mls/min IV ONCE PRN; Protocol PRN Reason: EtOH Withdrawal AWSS Score 10+ Lorazepam (Lorazepam 0.5 Mg Tab) 0.25 mg PO HS PRN PRN Reason: insomnia Stop: 04/07/24 02:37 Last Admin: 03/08/24 22:20 Dose: 0.25 mg Losartan Potassium (Losartan Potassium 50 Mg Tab) 100 mg PO DAILY [facility] Stop: 04/06/24 08:59 Last Admin: 03/11/24 09:27 Dose: 100 mg Ondansetron HCl (Ondansetron Inj 2 Mg/Ml 2 Ml Vial) 4 mg IV Q4H PRN PRN Reason: Nausea Stop: 04/05/24 13:44 Last Admin: 03/07/24 10:31 Dose: 4 mg Potassium Chloride (Potassium Chloride Crtab 20 Meq Tabcr) 40 meq PO QAM [facility] Stop: 04/06/24 08:59 Last Admin: 03/11/24 09:32 Dose: 40 meq Thiamine HCl (Thiamine Hcl 100 Mg Tab) 100 mg PO QAM [facility] Stop: 04/05/24 13:44 Last Admin: 03/11/24 09:27 Dose: 100 mg Torsemide (Torsemide 20 Mg Tab) 20 mg PO QAM [facility] Stop: 04/09/24 16:59 Last Admin: 03/11/24 09:27 Dose: 20 mg Urea (Urea (Urea-Na) 15 Gm Pack) 30 gm PO BID [facility] Stop: 04/09/24 20:59 Last Admin: 03/11/24 09:27 Dose: 30 gm
--- NOTE | 2024-03-11 17:54 | Discharge Summary ---
Date of Service March 11, 2024 Admission HPI Per Admitting Provider Constantino Crowell is a 58y/o M with PMHx significant for SENA on CPAP, HTN, chronic insomnia and chronic hyponatremia who presented to the ED for evaluation after being told by his PCP that his sodium level came back as 122 on routine labs drawn yesterday. History obtained from patient, at bedside and associated chart review. Sodium level is 121 in the ED this morning. Patient reports that he has not being feeling well for a few months. Mentions he feels rather lethargic. Patient generally drinks 1 coffee/day, 5-6 bottles of water (12- 16oz)/day and 4-5 beers (12oz)/day. He has not been taking his Urea [2 packets/day] as he should, but has been taking his torsemide as prescribed prior to arrival. Reports he did take his Urea yesterday, however this medication makes him feel like he has to vomit. Feels nauseous intermittently and has been vomiting on/off almost every day [approximately 3x/week]. He has been experiencing some diarrhea once in a while. No fevers, body aches or chills. His last fluid intake was on the way to the hospital, he consumed ~1 bottle of water. Admission Exam Per Admitting Provider Physical Exam: General: Lying comfortably in bed, not in distress, on room air HEENT: EOMI, KIERSTEN, MMM Chest: Clear breath sounds bilaterally, no wheezes or crackles CVS: Regular rate and rhythm, normal heart sounds, no murmur Abdomen: Soft, non tender, not distended, normal bowel sounds Neuro: Awake, alert, oriented, conversing well, non focal Extremities: No cyanosis, clubbing or edema Principal Diagnosis Acute hyponatremia, SIADH, alcohol use disorder, hypertension Discharge Exam Sitting on a chair without any acute distress Constitutional well developed, well nourished and average body habitus; not ill appearing Eyes PERRL, conjunctivae normal, anicteric sclerae ENMT external ear and nose normal, oropharynx normal Neck trachea midline, no thyromegaly Respiratory no respiratory distress Auscultation: lungs clear to auscultation bilaterally Cardiovascular Rate/Rhythm: regular rate and regular rhythm; not tachycardic Heart Sounds: normal S1 and normal S2; no murmur Extremities: no edema Gastrointestinal (Abdomen) Inspection/Auscultation: normal bowel sounds; abdomen not distended Percussion/Palpation: abdomen soft; abdomen nontender Neurologic normal touch/pain/proprioception and moves all extremities; no focal motor deficits Psychiatric A+Ox3, euthymic affect Lymphatic no cervical or axillary lymphadenopathy Discharge Data Allergies Allergy/AdvReac Type Severity Reaction Status Date / Time No Known Allergies Allergy Unverified 01/17/21 20:43 Consultations 03/06/24 09:56 Consult Nephrology Routine 03/06/24 09:58 ED Decision to Admit Stat Hospital Course (1) Acute hyponatremia: (2) SIADH (syndrome of inappropriate ADH production): (3) Transaminitis: (4) Alcohol abuse: (5) Hypertension: (6) Obstructive sleep apnea: Plan 58 year old male sent from PCP office for hyponatremia on OP labs with sodium at 122. Hyponatremia Recurrent Issue Secondary to SIADH Alcohol use contributing as well Sodium:120>124>126>128>129 Normal TSH Continue fluid restriction to 1.5 L a day Continue urea 15 gm twice a day Appreciate nephrology input and recommendation Antiemetics as needed Clinically much better and the weakness is resolved He has been ambulating in the hallway without any difficulties Has been feeling much better and wants to be discharged Unfortunately sodium level has gone down to 127 today again without any symptoms Discussed with utility worker film processing and he will be evaluated by nephrology this after noon prior to discharge Sodium level has been up at 130 on 03/11/2024 Doses of urea and torsemide have been adjusted by the utility worker film processing He will be discharged home this afternoon with close follow-up with the utility worker film processing Transaminitis AST/ALT mildly elevated likely from alcohol intake Strongly advised to quit drinking Alcohol use disorder Counseled to quit drinking alcohol Continue thiamine, folic acid Monitor for withdrawal-No signs and or symptoms of withdrawal Strongly advised to quit drinking Hypertension Continue amlodipine, losartan Monitor BP SENA CPAP HS DVT Px: Lovenox SQ Code Status Full code Total Time Total Time Spent Total Time Spent (In Minutes): 35 minutes Discharge Plan Discharge Items Patient Disposition: Home - Self-Care Reason For Visit: hyponatremia Discharge Diagnosis: Acute hyponatremia, SIADH, alcohol use disorder, hypertension Condition on Discharge: Good Activity: Resume your previous activity Non-emergency contact: Primary Care Provider Call non-emergency contact if: you have any medication questions and your symptoms worsen Follow-up/Referrals: Julio Syed MD [Primary Care Provider] - (Date & Time 03/19/2024 2:40 PM Provider Julio Syed MD Department [facility] ) Rc Ugalde MD [Surgeon] - (The Nephrology office will contact you for a follow up appointment.) Diet: Regular Fluids: 1500ml (6 cups) Addtl Attending Provider Instructions: Please take precautions to avoid falls Try to restrict fluid intake of about 1.5 L a day Please take your medications as advised Keep follow-up appointments with your healthcare providers Pending Studies at Discharge: No Stand-Alone Forms: My [facility] [employer], Smoking Cessation Medications and DC Order Prescriptions: New thiamine HCl (vitamin B1) 100 mg Tablet 100 mg PO QAM Qty: 30 0RF folic acid 1 mg Tablet 1 mg PO QAM Qty: 30 0RF Continued amlodipine 5 mg tablet 5 mg PO UD Rx Instructions: per pt he isnt sure if he takes 5 mg or 10 mg daily, 10 mg was last filled on 01/21 and is the most recent dose. losartan 100 mg tablet 100 mg PO DAILY potassium chloride [Klor-Con M20] 20 mEq tablet,ER particles/crystals 20 meq PO DAILY Changed torsemide 20 mg tablet 20 mg PO DAILY Qty: 0 0RF Rx Instructions: per pt he thinks he takes half a tab daily. Original instructions: 20 mg po bid Ure-Na 15 gram powder in packet 1 packet PO BID Qty: 0 0RF Discharge Orders: Discharge Order (Routine); Ordered 03/11/24 Ordered By: Benjamín Mcgarry Admission Data Admit Date/Time: 03/06/24 09:56 Attending Provider: Benjamín Mcgarry Admit Provider: Shaun Gomez Primary Care Provider: Julio Syed Other Providers: Em De La Garza; Shaun Gomez Other Interventions: Discharge Summary Assessment (RN) Last Done: 03/11/24 12:27
== END 2024-03-11 13:18 | disposition home or self-care (01) | DRG 645 ==
LOC: ED 07:46 → EDINP 09:56 → SUATTDRO 09:56 → 4W 14:29

== ENCOUNTER 2024-10-12 08:51 | Inpatient (IN) ==
--- OUTSIDE RECORDS SUMMARY | 2024-10-12 08:56 | External Medical Summary | Summary of Care ---
Author Name Unknown Organization [facility] Address [address] [place] [address] Phone [phone] Care Team Providers Care Tank Stave Assembler Name Role Phone Julio Syed MD Primary Care Provider + Reason for Visit * Reason Onset Date Comments Hospital Follow-Up 03/11/2024 Encounter Details Date Type Department Care Team (Late st Contact Info) Description 03/11/2024 Telephone General Internal Medicine [facility] [address] [place] [address] Julio Syed MD [address] [place] [address] Hospital Follow-Up Allergies No known active allergiesdocumented as of this encounter (statuses as of 06/10/2024) Medications amLODIPine Besylate 10 MG Oral Tablet (Norvasc)Indicati ons:Essential hypertension with goal blood pressure less than 140/90 Take 1 Tablet by mouth in the morning. 90 Tablet 3 4 Active Losartan Potassium 100 MG Oral Tablet (Cozaar)Indicatio ns:Essential hypertension with goal blood pressure less than 140/90 Take 1 Tablet by mouth in the morning. 90 Tablet 3 4 Active Urea 15 GM Oral Packet (Ure-Na) Take 15 g by mouth in the morning and 15 g before bedtime. 60 Packet 5 4 Active Potassium Chloride Orquidea ER 20 MEQ Oral Tablet Extended ReleaseIndication s:Hypokalemia Take 1 Tablet by mouth in the morning. Take 3 tablets today-7/12/2 4-Then 1 tablet daily.. 33 Tablet 5 4 Active documented as of this encounter (statuses as of 06/10/2024) Active Problems Problem Noted Date Diagnosed Date Hyponatremia 11/03/2023 Obstructive sleep apnea 08/08/2023 Overweight (BMI 25.0-29.9) 09/22/2022 Chronic insomnia 09/22/2022 Routine general medical exam ination at a health care facility 03/26/2015 Overview (09/19/2023): 2019 colon elsy 5y 12/11/20 Admit to [facility] for hyponatremia? 05/06 multiple polyps colonoscopy--tubular adenoma. Elsy 5y HTN, goal below 130/80 03/26/2015 documented as of this encounter (statuses as of 06/10/2024) Resolved Problems Problem Noted Date Diagnosed Date Resolved Date Nocturia 03/05/2020 09/20/2022 Overview (03/05/2020): 2-3x/night 2019. Declines Rx documented as of this encounter (statuses as of 06/10/2024) Immunizations Name Administration Dates Next Due COVID-19 mRNA, LNP-s, No Pre serve, 2-Dose Series ([employer]) 07/05/2021,11/29/2020,11/15/2020 TDAP (age 10 and older)(Boostrix) [...] No 09/19/2023 Does the household have a [facility] source of income? 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 Nephrology consulted for hyponatremia. Dr Mar recommends: hospital d/c visit w/ Dr Ugalde at [facility] and 2-3 days before that visit have pt check bmp, urine osms, serum osms, urine electrolytes, UACM, ACR; neph nurse to place orders. Please assist with these recommendations. Thank you documented in this encounter Plan of Treatment Scheduled Orders Name Type Priority Associated Diagnoses Orde r Schedule BASIC METABOLIC PANEL Lab Routine Hyponatremia Expected: 03/12/2024 (Approximate), Expires: 03/12/2025 OSMOLALITY, SERUM Lab Routine Hyponatremia Expected: 03/12/2024 (Approximate), Expires: 03/12/2025 OSMOLALITY, URINE Lab Routine Hyponatremia Expected: 03/12/2024 (Approximate), Expires: 03/12/2025 ELECTROLYTES, RANDOM URINE Lab Routine Hyponatremia Expected: 03/12/2024 (Approximate), Expires: 03/12/2025 URINALYSIS WITH MICROSCOPIC EXAM Lab Routine Hyponatremia Expected: 03/12/2024 (Approximate), Expires: 03/12/2025 ALBUMIN / CREATININE RATIO, URINE Lab Routine Hyponatremia Expected: 03/12/2024 (Approximate), Expires: 03/12/2025 Scheduled Procedures Name Priority Associated Diagnoses Date/Ti me COLONOSCOPY FLEXIBLE PROXIMAL DIAGNOSTIC Recall History of colon polyps Health Maintenance Due Date Last Done Comments Hepatitis C Screening 1982 Hepatitis B Vaccine (1 of 3 - 19+ 3-dose series) 1983 Cologuard 2009 Fecal Occult Blood Test 2009 Sigmoidoscopy 2009 Albumin/Creatinine Ratio 02/04/2024 02/03/2021, 08/24 COVID-19 Vaccine ( season) 2024 07/05/2021, 11/29/2020, 11/15/2020 Influenza Vaccine (FLU shot) (#1) 2024 Depression Screening 09/19/2024 09/19/2023 GFR 03/05/2025 03/05/2024, 01/20, 12/12/2023, Additional history exists DTap/Tdap Vaccines (2 - Td or Tdap) 03/26/2025 03/26/2015, 03/22/1995 Colonoscopy 05/28/2025 05/28/2020, 12/2019, 05/14/2015, Additional history exists Colorectal Cancer Screening 05/28/2025 Diabetes Screening 03/05/2027 03/05/2024, 0 01/31/2024, 12/12/2023, Additional history exists Lipid Panel 09/24/2028 09/25/2023, [...] hyponatremia documented in this encounter Care Teams Tank Stave Assembler Relationship Specialty Start Date End Date Julio Syed MD [address] [place] [id number] PCP - General Family Medicine 03/26/15 documented as of this encounter
--- OUTSIDE RECORDS SUMMARY | 2024-10-12 08:57 | External Medical Summary | Summary of Care ---
Author Name Unknown Organization [facility] Address [address] [place] [address] Phone [phone] Care Team Providers Care Ocean Import Representative Name Role Phone Julio Syed MD Primary Care Provider + Reason for Visit * Reason Onset Date Comments Health Maintenance 04/16/2024 Encounter Details Date Type Department Care Team (Late st Contact Info) Description 04/16/2024 Telephone Family Practice [facility] [address] [place] [id number] Julio Syed MD [address] [place] [id number] Health Maintenance Allergies No known active allergiesdocumented as of this encounter (statuses as of 04/16/2024) Medications Medication Sig Dispensed Refills Start Date End Date Status amLODIPine Besylate 10 MG Oral Tablet (Norvasc)Indications:E [...] before bedtime. 60 Packet 5 12/14/2023 Active Potassium Chloride Orquidea ER 20 MEQ Oral Tablet Extended ReleaseIndications:Hyp okalemia Take 1 Tablet by mouth in the morning. Take 3 tablets today-02/01/24-Th en 1 tablet daily.. 33 Tablet 5 02/01/2024 Active Torsemide 20 MG Oral Tablet (Demadex) Take 1 Tablet by mouth in the morning. 03/12/2024 Active Thiamine HCl 100 MG Oral Tablet (vitamin B-1) Take 1 Tablet by mouth in the morning. Active Folic Acid 1 MG Oral Tablet Take 1 Tablet by mouth in the morning. Active Losartan Potassium 100 MG Oral Tablet (Cozaar) Take 1 Tablet by mouth daily. 7 Tablet 9 04/03/2024 Active Potassium Chloride ER 20 MEQ Oral Tablet Extended Release Take 1 Tablet by mouth daily. 7 Tablet 7 04/03/2024 Active Torsemide 20 MG Oral Tablet (Demadex) Take 1 Tablet by mouth daily. 7 Tablet 9 04/03/2024 Active amLODIPine Besylate 10 MG Oral Tablet (Norvasc) Take 1 Tablet by mouth daily. 7 Tablet 9 04/03/2024 Active documented as of this encounter (statuses as of 04/16/2024) Active Problems Problem Noted Date Diagnosed Date Hyponatremia 11/03/2023 Obstructive sleep apnea 08/08/2023 Overweight (BMI 25.0-29.9) 09/22/2022 Chronic insomnia 09/22/2022 Routine general medical exam ination at a health care facility 03/26/2015 Overview: 2019 colon elsy 5y 12/11/20 Admit to [place] for hyponatremia? 05/06 multiple polyps colonoscopy--tubular adenoma. Elsy 5y HTN, goal below 130/80 03/26/2015 documented as of this encounter (statuses as of 04/16/2024) Resolved Problems Problem Noted Date Diagnosed Date Resolved Date Nocturia 03/05/2020 09/20/2022 Overview: 2-3x/night 2019. Declines Rx documented as of this encounter (statuses as of 04/16/2024) Immunizations Name Administration Dates Next Due COVID-19 mRNA, LNP-s, No Pre serve, 2-Dose Series ([employer]) 07/05/2021,11/29/2020,11/15/2020 TDAP (age 10 and older)(Boostrix) 03/26/2015 Zoster Vaccine Recombinant (Shingrix) 06/08/2020 ,03/05/2020 documented as of this encounter Social History Tobacco Use Types Packs/Day Years Used Date Smoking Tobacco: Never Smokeless Tobacco: Current Alcohol Use Standard Drinks/Week Comments Yes 0 (1 standard drink = 0.6 oz pur e alcohol) prior 6/day. 03/15 1 /day PHQ-2 Answer Date Recorded PHQ Adult Total [...] encounter Miscellaneous Notes * Telephone Encounter - Alysha Roca LPN - 04/16/2024 9:43 AM EDT Care Gaps Comprehensive Care Outreach Last Office/Telemedicine Visit: 03/19/2024 (in office), Visit date not found (telemedicine) Next Office Visit: Visit date not found Hemoglobin AIC Results: Lab Results Component Value Date/Time HEMOGLOBIN A1C - [facility] 5.2 09/25/2023 01:14 PM HEMOGLOBIN A1C - [facility] 5.0 01/13/2021 01:45 PM BP Readings from Last 1 Encounters: 03/19/24 112/68 Reviewed Health Maintenance below: Health Maintenance Topic Date Due Hepatitis C Screening Never done Hepatitis B Vaccine (1 of 3 - 19+ 3-dose series) Never done Albumin/Creatinine Ratio 02/04/2024 Influenza Vaccine (FLU shot) (1) Never done COVID-19 Vaccine ( season) 2024 Depression Screening 09/19/2024Feb urine Care Gap Outreach Action Taken: Left message documented in this encounter Plan of Treatment [...] filedocumented as of this encounter Care Teams Ocean Import Representative Relationship Specialty Start Date End Date Julio Syed MD [address] [place] [id number] PCP - General Family Medicine 03/26/15 documented as of this encounter
--- NOTE | 2024-10-12 09:04 | Emergency Department Note ---
Impression & Plan Confusion, Hyponatremia ED Provider Note HISTORY OF PRESENT ILLNESS: Patient is a 59-year-old male presenting with confusion. Patient presents from [facility] psychiatric unit. Patient is there as a 201. Patient was sent from their facility because he is having episodes of confusion and today was found wandering in the halls trying to go into other patient's rooms. Patient is alert and oriented on arrival to the ER. He reportedly had a sodium of 123 a few days ago and has been "taking salt tablets." Patient has a small laceration to his forehead that is covered in Steri-Strips, and he reports that he had fallen when 5 days ago. Patient has history of alcoholism and reports that he normally drinks 6 beers a day. He reports his last drink was 6 days ago. He currently denies any headache or changes in vision. Denies any numbness or tingling or weakness in his extremities. Denies any chest pain or shortness of breath. He has no complaints on arrival to the emergency department. ROS: as above PHYSICAL EXAM: Constitutional: Patient appears in no acute distress. HENT: Head: Normocephalic and atraumatic. Eyes: EOMI, PERRL Mouth/Throat: Mucous membranes moist. Neck: Trachea midline. Neck supple. Cardiovascular: RRR, No murmurs, rubs or gallops. Intact distal pulses. Pulmonary/Chest: No respiratory distress. Breath sounds clear and equal bilaterally. No wheezes or rales. Abdominal: Abdomen soft, no tenderness, rebound or guarding. Musculoskeletal: No edema, tenderness or deformity noted. Skin: Warm and dry. No rash, erythema, pallor or cyanosis Psychiatric: Appropriate mood and affect for situation. Neurological: Alert and keenly responsive. CN II-XII grossly intact, moving all extremities equally and fully. MDM: - Vitals signs showed hypertension - History obtained via patient and EMS. History as above. - Chronic conditions affecting care: SIADH - Differential diagnoses include, but are not limited to: Electrolyte abnormality; CVA; intracranial hemorrhage; ACS - Order placed for continuous cardiac monitoring. At this time, monitor showed rate of 70 bpm with normal sinus rhythm, per my interpretation. - External medical records reviewed. Discharge summary dated 03/11/2024 was reviewed. Patient was admitted for acute hyponatremia and SIADH. - EKG image interpreted by myself showed normal sinus rhythm. Rate 71 bpm. QT 408. No acute ischemic changes. - Laboratory workup interpreted by myself showed normal WBC; chronic hyponatremia (Na 123); elevated total bilirubin (1.5); normal glucose; normal troponin; normal TSH - UA negative for infection - CT head wo contrast negative for acute intracranial pathology. - CXR reviewed by myself is negative for pneumonia, per my interpretation. - Discussed results with patient and his at bedside. expresses concern about the patient coming home. Patient reports he does not want to go back to the [facility]. He is there voluntarily is a 201. - Discussion was had with case picker about patient's case and need for admission - Hospitalist, Dr. Evans, consulted for admission - Patient admitted to [facility] service for further evaluation and management. ASSESSMENT AND PLAN: Diagnosis: Confusion; hyponatremia Plan: Admit Past Med/Surg History Problem List (Updated 10/12/24 @ 11:50 by Karrie Wood MD) Hyponatremia (Acute) Confusion (Acute) Elevated liver enzymes (Acute) Acute hyponatremia (Acute) Weakness (Acute) Alcohol abuse SIADH (syndrome of inappropriate ADH production) Transaminitis Acute hyponatremia Medical History Chronic insomnia Chronic hyponatremia Obstructive sleep apnea Hypertension Social History Smoking Status: Never smoker Second Hand Exposure: No; Do You Dip or Chew Tobacco: No; Hx Alcohol Use: Yes Alcohol type: beer Hx Substance Use: No Preferred Language: Greek Communication Ability: Effective Lead Pressman Required: No Beliefs That Will Affect Care: None Current Living Situation: Spouse Feels Safe at Home: Yes Assistive Devices: None Allergies Allergies Allergy/AdvReac Type Severity Reaction Status Date / Time No Known Allergies Allergy Unverified 10/12/24 10:36 Home Meds Home Medications Medication Instructions Recorded Confirmed losartan 100 mg tablet 100 mg PO DAILY 01/17/21 10/12/24 Results & Data (ED) Vital Signs Vital Signs - 24 hr 10/12/24 09:25 10/12/24 09:39 10/12/24 09:41 Temperature 36.7 C Temperature Source Oral Pulse Rate 72 67 73 Pulse Rate from SpO2 Sensor 66 Respiratory Rate 17 16 Respiratory Effort / Characteristics Non-Labored Spontaneous Respiratory Depth Normal Blood Pressure 171/99 H Blood Pressure Mean 123 Pulse Oximetry 98 97 Oxygen Delivery Method Room Air Room Air Sepsis Recent Fever Within 48 Hours No Sepsis New/Unexplained Change in Mental Status N/A Sepsis Action Taken by Nursing No Action Required 10/12/24 10:06 10/12/24 10:24 10/12/24 11:03 Temperature Temperature Source Pulse Rate 65 69 Pulse Rate from SpO2 Sensor 69 63 Respiratory Rate 15 19 20 Respiratory Effort / Characteristics Respiratory Depth Blood Pressure 169/104 H 169/104 H 147/98 H Blood Pressure Mean 125 125 114 Pulse Oximetry 99 97 96 Oxygen Delivery Method Room Air Room Air Room Air Sepsis Recent Fever Within 48 Hours Sepsis New/Unexplained Change in Mental Status Sepsis Action Taken by Nursing 10/12/24 11:33 10/12/24 12:00 10/12/24 12:09 Temperature Temperature Source Pulse Rate Pulse Rate from SpO2 Sensor 62 79 Respiratory Rate 18 16 Respiratory Effort / Characteristics Respiratory Depth Blood Pressure 159/98 H 154/98 H Blood Pressure Mean 118 116 Pulse Oximetry 96 98 Oxygen Delivery Method Room Air Room Air Sepsis Recent Fever Within 48 Hours Sepsis New/Unexplained Change in Mental Status Sepsis Action Taken by Nursing Laboratory Data 10/12/24 09:13 10/12/24 09:13 Lab Results 10/12/24 10/12/24 Range/Units 09:13 11:00 WBC 5.75 (4.8-10.8) K/ul RBC 4.29 L (4.70-6.10) M/uL Hgb 14.0 (14.0-18.0) g/dl Hct 38.6 L (42.0-52.0) % MCV 90.0 (80.0-100.0) fL MCH 32.6 (25.0-34.0) pg MCHC 36.3 H (32.0-36.0) g/dL RDW Std Deviation 42.5 (36.4-46.3) fL RDW Coeff of Ayana 13.0 (11.5-14.5) % Plt Count 225 (130-400) K/uL MPV 9.6 (9.4-12.4) fL Immature Gran % (Auto) 0.5 % Neut % (Auto) 64.7 % Lymph % (Auto) 18.3 % Grafton % (Auto) 13.4 % Eos % (Auto) 2.4 % Baso % (Auto) 0.7 % Neut # (Auto) 3.72 (1.40-6.50) K/uL Lymph # (Auto) 1.05 L (1.20-3.40) K/uL Grafton # (Auto) 0.77 H (0.11-0.59) K/uL Eos # (Auto) 0.14 (0.00-0.50) K/uL Baso # (Auto) 0.04 (0.00-0.20) K/uL Immature Gran # (Auto) 0.03 (0.01-0.20) K/uL Sodium 123 L (136-145) mmol/L Potassium 4.1 (3.5-5.1) mmol/L Chloride 90 L (98-107) mmol/L Carbon Dioxide 26 (21-32) mmol/L Anion Gap 7 (3-11) BUN 13 (6-23) mg/dl Creatinine 0.78 (0.6-1.4) mg/dl Est Cr Clr Drug Dosing 110.5 ml/min eGFR 102.09 BUN/Creatinine Ratio 16.7 (10-20) Glucose 114 H (70-99(Fasting)) mg/dl Calcium 9.1 (8.6-10.3) mg/dl Magnesium 1.8 (1.7-2.4) mg/dl Total Bilirubin 1.5 H (0.2-1.0) mg/dl AST 21 (13-39) U/L ALT 13 (7-52) U/L Alkaline Phosphatase 41 (34-104) U/L Troponin I High Sens < 2.3 (0-20) pg/ml Total Protein 7.1 (6.0-8.3) gm/dl Albumin 4.6 (3.4-5.0) gm/dl Globulin 2.5 (2.5-4.0) gm/dl Albumin/Globulin Ratio 1.8 (0.9-2) TSH 1.509 (0.300-4.500) uIu/ml Urine Color Yellow Urine Appearance Clear (Clear) Urine pH 6.5 (4.5-7.5) Ur Specific Mcdonough 1.017 (1.000-1.030) Urine Protein Negative (Negative) Urine Glucose (UA) Negative (Negative) Urine Ketones 1+ H (Negative) Urine Blood Negative (Negative) Urine Nitrite Negative (Negative) Urine Bilirubin Negative (Negative) Urine Urobilinogen Negative (Negative) Ur Leukocyte Esterase Negative (Negative) Imaging Data Radiologist's Impression: Head CT 10/12/24 09:02 CT OF THE HEAD WITHOUT CONTRAST CLINICAL HISTORY: Confusion. COMPARISON STUDY: No previous studies for comparison. CT DOSE: 625.8 mGy.cm TECHNIQUE: Helical axial images of the head were obtained without IV contrast. Automated exposure control was utilized for the study. A dose lowering technique was utilized adhering to the principles of ALARA. FINDINGS: No acute intracranial hemorrhage, midline shift or mass effect is present. The ventricular system is unremarkable. Basal cisterns are patent. There are no extra-axial collections. White matter hypodensity suggests small vessel disease. 1.5 cm hypodensity within the right basal ganglia on image 16 of 32 represents an old infarct. There are no findings to suggest acute dural sinus thrombosis or acute territorial infarct. There are no calvarial fractures. There is minimal sinus mucosal thickening and a small amount of fluid within the left mastoid air cells. IMPRESSION: 1. No acute intracranial findings. 2. Old right basal ganglia infarct. ACT 112: Negative or not required by law. Electronically signed by: Yossi Barth M.D. 10/12/2024 9:39 AM Chest X-Ray 10/12/24 09:03 XR chest 1V portable CLINICAL HISTORY: Confusion. COMPARISON STUDY: Chest radiograph January 17, 2021. FINDINGS: Lung volumes are normal. Lungs are clear. There is no pneumothorax or pleural effusion. Cardiac size is normal. Mediastinal contours are normal. There is no evidence for pulmonary edema. IMPRESSION: No acute cardiopulmonary findings. ACT 112: Negative or not required by law. Electronically signed by: Yossi Barth M.D. 10/12/2024 9:17 AM Discharge Plan Visit Data Chief Complaint: Confusion ED Provider: Karrie Wood Discharge Problem: Confusion, Hyponatremia Patient Disposition: Home - Self-Care Discharge Instructions Lolly/Other Patient Handouts: ED Confusion Activity Restrictions/Additional Instructions: Your laboratory workup in the emergency department showed low sodium level at 123. Otherwise your laboratory workup was unremarkable. Your CT imaging of your head did not show any acute abnormality. Your chest x-ray did not show any evidence of pneumonia. Your urinalysis is negative for infection. Please follow closely with your primary care provider. Return to the emergency department if you develop chest pain, shortness of breath, further episodes of confusion, any headache or changes vision, new numbness or tingling or weakness in your extremities, or any new or worsening symptoms. Forms Stand Alone Forms: My [facility], Important Visit Information Prescriptions Prescriptions: No Action losartan 100 mg tablet 100 mg PO DAILY Referrals Referrals: Julio Syed MD [Primary Care Provider] -
--- NOTE | 2024-10-12 09:18 | XRay Report ---
XR chest 1V portable CLINICAL HISTORY: Confusion. COMPARISON STUDY: Chest radiograph January 17, 2021. FINDINGS: Lung volumes are normal. Lungs are clear. There is no pneumothorax or pleural effusion. Car diac size is normal. Mediastinal contours are normal. There is no evidence for pulmonary edema. IMPRESSION: No acute cardiopulmonary findings. ACT 112: Negative or not required by law. Electronically signed by: Yossi Barth M.D. 10/12/2024 9:17 AM
[2024-10-12 09:30] LABS: Basophils # (auto) 0.04 K/uL (0.00-0.20); Basophils % (auto) 0.7 %; Eosinophils # (auto) 0.14 K/uL (0.00-0.50); Eosinophils % (auto) 2.4 %; Hematocrit (blood only) 38.6 % (42.0-52.0); Immature Granulocytes # (auto) 0.03 K/uL (0.01-0.20); Immature Granulocytes % (auto) 0.5 %; Lymphocytes # (auto) 1.05 K/uL (1.20-3.40); Lymphocytes % (auto) 18.3 %; Mean Corpuscular Hemoglobin 32.6 pg (25.0-34.0); Mean Corpuscular Hgb Conc 36.3 g/dL (32.0-36.0); Mean Platelet Volume 9.6 fL (9.4-12.4); Monocytes # (auto) 0.77 K/uL (0.11-0.59); Monocytes % (auto) 13.4 %; Neutrophils # (auto) 3.72 K/uL (1.40-6.50); Neutrophils % (auto) 64.7 %; Platelet Count 225 K/uL (130-400); RDW Standard Deviation 42.5 fL (36.4-46.3); Red Blood Count 4.29 M/uL (4.70-6.10); White Blood Count 5.75 K/ul (4.8-10.8)
--- NOTE | 2024-10-12 09:40 | CT Scan Report ---
CT OF THE HEAD WITHOUT CONTRAST CLINICAL HISTORY: Confusion. COMPARISON STUDY: No previous studies for comparison. CT DOSE: 625.8 mGy.cm TECHNIQUE: Helical axial images of the head were obtained without IV contrast. Automated exposure con trol was utilized for the study. A dose lowering technique was utilized adhering to the principles o f ALARA. FINDINGS: No acute intracranial hemorrhage, midline shift or mass effect is present. The ventricular system is unremarkable. Basal cisterns are patent. There are no extra-axial collections. White matter hypodensity suggests small vessel disease. 1.5 cm hypodensity within the right basal ganglia on imag e 16 of 32 represents an old infarct. There are no findings to suggest acute dural sinus thrombosis o r acute territorial infarct. There are no calvarial fractures. There is minimal sinus mucosal thicken ing and a small amount of fluid within the left mastoid air cells. IMPRESSION: 1. No acute intracranial findings. 2. Old right basal ganglia infarct. ACT 112: Negative or not required by law. Electronically signed by: Yossi Barth M.D. 10/12/2024 9:39 AM
[2024-10-12 09:55] LABS: Alanine Aminotransferase 13 U/L (7-52); Albumin Globulin Ratio 1.8 (0.9-2); Albumin Level 4.6 gm/dl (3.4-5.0); Alkaline Phosphatase 41 U/L (34-104); Anion Gap 7 (3-11); Aspartate Aminotransferase 21 U/L (13-39); BUN Creatinine Ratio 16.7 (10-20); Bilirubin,Total 1.5 mg/dl (0.2-1.0); Blood Urea Nitrogen 13 mg/dl (6-23); Calcium 9.1 mg/dl (8.6-10.3); Carbon Dioxide 26 mmol/L (21-32); Chloride 90 mmol/L (98-107); Creatinine Clr Calc Pharmacy 110.5 ml/min; Globulin 2.5 gm/dl (2.5-4.0); Glucose 114 mg/dl (70-99(Fasting)); Magnesium 1.8 mg/dl (1.7-2.4); Potassium 4.1 mmol/L (3.5-5.1); Sodium 123 mmol/L (136-145); Total Protein 7.1 gm/dl (6.0-8.3)
[2024-10-12 10:01] LABS: Troponin I High Sensitivity < 2.3 pg/ml (0-20)
[2024-10-12 10:10] LABS: Thyroid Stimulating Hormone 1.509 uIu/ml (0.300-4.500)
[2024-10-12 11:19] LABS: Appearance Urine Clear (Clear); Bilirubin Urine Negative (Negative); Blood Urine Negative (Negative); Color Urine Yellow; Glucose Urine UA Negative (Negative); Ketones Urine 1+ (Negative); Leukocyte Esterase Urine Negative (Negative); Nitrite Urine Negative (Negative); Protein Urine Negative (Negative); Specific Gravity Urine 1.017 (1.000-1.030); Urobilinogen Urine Negative (Negative); pH Urine 6.5 (4.5-7.5)
--- NOTE | 2024-10-12 12:32 | Electrocardiogram Report ---
Test Reason : Blood Pressure : */* mmHG Vent. Rate : 71 BPM Atrial Rate : 71 BPM P-R Int : 132 ms QRS Dur : 88 ms QT Int : 408 ms P-R-T Axes : 18 34 44 degrees QTcB Int : 443 ms Normal sinus rhythm Normal ECG When compared with ECG of 06-Mar-2024 08:17, Minimal criteria for Anterior infarct are no longer Present Confirmed by Alex Salazar ([id number]) on 10/12/2024 12:32:14 PM Referred By: Confirmed By: Alex Salazar
--- NOTE | 2024-10-12 13:01 | History & Physical Report ---
Date of Service October 12, 2024 Assessment & Plan (1) Confusion: (2) Acute hyponatremia: (3) SIADH (syndrome of inappropriate ADH production): Plan Mr. Crowell is a 59 year old gentleman with past medical history remarkable for hypertension, alcohol abuse, SIADH presented to [facility] ED due to episode of confusion and admitted for acute on chronic hyponatremia. Patient has been noncompliant with previous recommendations. Confusion potentially related to combination of sodium however, I suspect more chronic, as well as withdrawal (though out side of 72 hours, still at risk), as well as question the chronicity of the infarct on imaging. #Intermittent confusion, suspect multifactorial #Alcohol Use disorder #Recent suicidal ideation Sodium potential contributor, but likely in the 120s given reports "months" of med noncompliance and etoh use; recent cessation of Etoh 2/[address] [facility] Will start AWSS and Librium for withdrawal with ativan prn Psych consult as patient does not wish to return to [facility] under 201 Neuro check q4h while monitoring below thiamine/folate started #Acute on chronic hyponatremia iso known SIADH/noncompliance appears euvolemic Previously recommended to continue urea 15gm BID; torsemide 20mg daily with KCL 20meq; Never followed up with Nephrology, reports not maintain FR Sodium on admission 122, osmo 256, Uric Acid 5.4, TSH WNL - ADH present: uOsm > 150 (300-500): 539 Plan to follow BMP q 4 for 24 hours - Max rate 6-8MeQ over 24 hours--Goal 128-130 by 1300 10/13/2024 Nephrology consulted FR 1.5L strict I&Os Urea ordered, however, not on formulary at this time Discussed with Dr. Ugalde over phone -Start IV NS @80cc/hr and IV lasix 40mg BID while maintaining oral restriction #Old infarct on imaging not clear when this may have occurred, no focal deficits on exam Will start asa and statin Lipid panel in am question if contributing to presentation possibly #Mechanical fall #scalp laceration no signs of superficial infection, well approximated PT/OT ordered #Hypertension not actively taking losartan any more will resume at half dose of prior script--50mg losartan daily, increase as tolerated DVT lovenox Admit to pcu Full code Admission and Anticipated Discharge Date Admission Date: Time spent evaluating patient, direct bedside care, chart review, placing orders, interpretation of diagnostic studies, discussion with consultants, patient, and family members, as well as other required patient management activities is 75 minutes. History of Present Illness Chief Complaint: Confusion Primary Care Provider: Julio Syed MD Mr. Crowell is a 59 year old gentleman with past medical history remarkable for hypertension, alcohol abuse, SIADH presented to [facility] ED due to episode of confusion. Patient recently admitted to the [facility] under 201 given reports of suicidal ideation and admitted on 10/08--which was his last day of alcohol consumption. He reports that since the admission to [facility] he just felt "disoriented" due to lack of sleep and "being in a new location." He denies any vision changes, headaches, focal neurologic deficits. He is alert to person/place/time/situation. He states that he has not taken any of his medications for months because he hated urinating after leaving the house in the morning. He also endorses not keeping a fluid restriction. He states that he did attend a rehab for 28 days and thought it went well, however, recently he just became stressed and resumed drinking about a month ago. Of note, patient sustained a fall a "few days ago" at the [facility] resulting in a scalp laceration--patient reports this occurred again due to being unfamiliar with the location and "tripped." He overall denies any concerns. In the ED, vitals were notable for BP of 140s-170s HR of 60-70s, and O2 sat of high 90s on room air. Imaging revealed old right basal ganglia infarct EKG with poor baseline/artifact but seemingly nsr ED interventions: nothing Patient to be admitted to pcu for further evaluation and management of acute on chronic hyponatremia Allergies Allergy/AdvReac Type Severity Reaction Status Date / Time No Known Allergies Allergy Unverified 10/12/24 10:36 Home Medications Medication Instructions Recorded Confirmed Type losartan 100 mg tablet 100 mg PO DAILY 01/17/21 10/12/24 History Past Med/Surg History Problem List (Updated 10/12/24 @ 11:50 by Karrie Wood MD) Hyponatremia (Acute) Confusion (Acute) Elevated liver enzymes (Acute) Acute hyponatremia (Acute) Weakness (Acute) Alcohol abuse SIADH (syndrome of inappropriate ADH production) Transaminitis Acute hyponatremia Medical History Chronic insomnia Chronic hyponatremia Obstructive sleep apnea Hypertension Social History Smoking Status: Never smoker Second Hand Exposure: No; Do You Dip or Chew Tobacco: Yes; Tobacco Cessation Education Requested by Patient: No Hx Alcohol Use: Yes Alcohol type: beer Hx Substance Use: No Preferred Language: German Communication Ability: Effective Outer Diameter Grinder Tool Required: No Beliefs That Will Affect Care: None Current Living Situation: Spouse Feels Safe at Home: Yes Safety Concerns: Feels Safe At This Time Assistive Devices: None Review of Systems Review of Systems: Constitutional: (-) fever/chills, (-) recent loss of weight, (-) appetite changes, (-) night sweats. Head: (-) headache, (-) dizziness. Eye: (-) blurring of vision, (-) double vision, (-) redness. Ear: (-) hearing loss, (-) discharge, (-) vertigo Nose: (-) discharge, (-) bleeding, (-) congestion, (-) post nasal drip. Throat: (-) sore throat, (-) hoarseness of voice, (-) odynophagia. Cardiovascular: (-) chest pain, (-) palpitations, (-) syncope, (-) orthopnea, (- ) PND, (-) leg swelling. Respiratory: (-) shortness of breath, (-) cough, (-) wheezing, (-) hemoptysis. Neuro: (-) weakness in extremities, (-) numbness, (-) tingling, (-) tremor. Gastrointestinal: (-) belly pain, (-) belly distension, (-) nausea, (-) vomiting, (-) diarrhea, (-) constipation Genitourinary: (-) hematuria, (-) dysuria, (-) polyuria, (-) hesitancy, (-) frequency, (-) urinary incontinence. Musculoskeletal: (-) myalgia, (-) arthralgia. Skin: (-) rashes. Endocrine: (-) heat/cold intolerance. Psychiatry: (-) depression, (-) hallucination. Physical Exam Physical Exam: GENERAL APPEARANCE: AxOx4, no apparent distress, yawning frequently reports being tired . HEENT: NC, AT. MMM. EOMI, clear conjunctiva, oropharynx clear. NECK: Supple without lymphadenopathy. No stiffness or restricted ROM. HEART: Normal rate and regular rhythm, normal S1/S1, no m/r/g LUNGS: CTAB, moving air well. No crackles or wheezes are heard. ABDOMEN: Soft, nontender, nondistended with good bowel sounds heard. BACK: No CVAT, no obvious deformity. EXTREMITIES: Without cyanosis, clubbing or edema. NEUROLOGICAL: Grossly nonfocal. Alert and oriented, moving all 4 extremities. CN II-XII intact answers appropriately Skin: Warm and dry without any rash. small vertical laceration on right side of forehead with steristrip in place Results & Data Results & Data Vital Signs (Past 12 Hours) Vital Signs Temp Pulse Resp BP Pulse Ox O2 Del Method 10/12/24 12:09 16 98 Room Air 10/12/24 12:00 154/98 H 10/12/24 11:33 18 159/98 H 96 Room Air 10/12/24 11:03 20 147/98 H 96 Room Air 10/12/24 10:24 69 19 169/104 H 97 Room Air 10/12/24 10:06 65 15 169/104 H 99 Room Air 10/12/24 09:41 73 10/12/24 09:39 67 16 97 Room Air 10/12/24 09:25 36.7 C 72 17 171/99 H 98 Room Air Laboratory Results Short CBC 10/12/24 Range/Units 09:13 WBC 5.75 (4.8-10.8) K/ul Hgb 14.0 (14.0-18.0) g/dl Hct 38.6 L (42.0-52.0) % Plt Count 225 (130-400) K/uL BMP 10/12/24 10/12/24 09:13 13:20 Sodium 123 L 122 L Potassium 4.1 4.1 Chloride 90 L 91 L Carbon Dioxide 26 24 BUN 13 12 Creatinine 0.78 0.76 Glucose 114 H 93 Calcium 9.1 9.0 Liver Function 10/12/24 Range/Units 09:13 Total Bilirubin 1.5 H (0.2-1.0) mg/dl AST 21 (13-39) U/L ALT 13 (7-52) U/L Alkaline Phosphatase 41 (34-104) U/L Albumin 4.6 (3.4-5.0) gm/dl Urine 10/12/24 Range/Units 11:00 Urine Color Yellow Urine Appearance Clear (Clear) Urine pH 6.5 (4.5-7.5) Ur Specific Barto 1.017 (1.000-1.030) Urine Protein Negative (Negative) Urine Glucose (UA) Negative (Negative) Medications Administered Home Medications Medication Instructions Recorded Confirmed Last Taken losartan 100 mg tablet 100 mg PO DAILY 01/17/21 10/12/24 03/05/24 Active Medications Generic Name Dose Route Start Last Admin Trade Name Freq PRN Reason Stop Dose Admin Aspirin 81 mg 10/12/24 15:15 10/12/24 16:27 Aspirin 81 Mg Ectab PO 11/11/24 15:14 81 mg QAM NEVA Administration Chlordiazepoxide HCl 50 mg 10/12/24 14:45 10/12/24 15:57 Chlordiazepoxide Hcl 25 Mg Cap PO 10/13/24 08:46 50 mg Q6H NEVA Administration Enoxaparin Sodium 40 mg 10/12/24 16:00 10/12/24 16:27 Enoxaparin Inj 40 Mg/0.4 Ml Syr SQ 11/11/24 15:59 40 mg Q24H NEVA Administration Furosemide 40 mg 10/12/24 15:35 10/12/24 16:26 Furosemide 40 Mg/4 Ml Vial IV 11/11/24 15:34 40 mg BID NEVA Administration Sodium Chloride 1,000 mls @ 80 mls/hr 10/12/24 15:45 10/12/24 16:27 Nss IV 10/13/24 15:44 80 mls/hr .[id number] NEVA Administration Losartan Potassium 50 mg 10/12/24 13:30 10/12/24 16:26 Losartan Potassium 50 Mg Tab PO 11/11/24 13:29 50 mg QAM NEVA Administration Potassium Chloride 40 meq 10/12/24 15:45 10/12/24 16:26 Potassium Chloride Crtab 20 Meq Tabcr PO 11/11/24 15:44 40 meq QAM NEVA Administration Urea 15 gm 10/12/24 13:05 10/12/24 17:21 Urea (Urea-Na) 15 Gm Pack PO 11/11/24 13:04 Not Given BID NEVA Code Status & VTE Plan VTE Prophylaxis Plan VTE Prophylaxis will be ordered: Yes
[2024-10-12] MEDS ORDERED: LORazepam 2 MG/1 ML VIAL IV PRN (13:26)
[2024-10-12 13:55] LABS: BUN Creatinine Ratio 15.8 (10-20); Creatinine Clr Calc Pharmacy 113.5 ml/min; Potassium 4.1 mmol/L (3.5-5.1); Uric Acid 5.4 mg/dl (2.6-7.2)
[2024-10-12] MEDS ORDERED: chlordiazePOXIDE ALCOHOL WITHDRAWL 50MG PO STA (14:36)
[2024-10-12] MEDS: chlordiazePOXIDE HCl 25 MG CAP PO SCH (15:57)
[2024-10-12] MEDS: POTASSIUM CHLORIDE CRTAB 20 MEQ TABCR PO SCH (16:26)
[2024-10-12] MEDS: LOSARTAN POTASSIUM 50 MG TAB PO SCH (16:26)
[2024-10-12] MEDS: FUROSEMIDE 40 MG/4 ML VIAL IV SCH (16:26)
[2024-10-12] MEDS: ENOXAPARIN INJ 40 MG/0.4 ML SYR SQ SCH (16:27)
[2024-10-12] MEDS: ASPIRIN 81 MG ECTAB PO SCH (16:27)
[2024-10-12] MEDS: SODIUM CHLORIDE 0.9% 1,000 ML IV SCH (16:27)
[2024-10-12] MEDS: UREA (UREA-NA) 15 GM PACK PO SCH (17:21)
[2024-10-12 18:16] LABS: BUN Creatinine Ratio 16.2 (10-20); Creatinine Clr Calc Pharmacy 87.1 ml/min; Potassium 3.9 mmol/L (3.5-5.1)
[2024-10-12 18:42] LABS: Creatinine Urine Random 18.9 mg/dl; Total Protein Urine Random < 4.0 mg/dl (0-11.9); Urine Chloride 107 mmol/L; Urine Potassium 18.1 mmol/L; Urine Sodium 86 mmol/L
[2024-10-12 21:49] LABS: BUN Creatinine Ratio 14.8 (10-20); Calcium 8.8 mg/dl (8.6-10.3); Creatinine Clr Calc Pharmacy 67.4 ml/min
[2024-10-13 06:23] LABS: Hematocrit (blood only) 37.8 % (42.0-52.0); Hemoglobin 14.1 g/dl (14.0-18.0); Mean Corpuscular Hemoglobin 33.7 pg (25.0-34.0); Mean Corpuscular Hgb Conc 37.3 g/dL (32.0-36.0); Mean Corpuscular Volume 90.2 fL (80.0-100.0); Mean Platelet Volume 9.7 fL (9.4-12.4); Platelet Count 198 K/uL (130-400); RDW Coefficient of Variation 12.8 % (11.5-14.5); RDW Standard Deviation 42.5 fL (36.4-46.3); Red Blood Count 4.19 M/uL (4.70-6.10); White Blood Count 4.67 K/ul (4.8-10.8)
[2024-10-13 06:51] LABS: BUN Creatinine Ratio 18.9 (10-20); Calcium 8.5 mg/dl (8.6-10.3); Creatinine Clr Calc Pharmacy 90.8 ml/min; Magnesium 1.9 mg/dl (1.7-2.4); Phosphorus 3.5 mg/dl (2.5-4.9); Potassium 3.9 mmol/L (3.5-5.1)
[2024-10-13] MEDS: ATORVASTATIN 40 MG TAB PO SCH (08:11)
[2024-10-13] MEDS: FOLIC ACID 1 MG TAB PO SCH (08:12)
[2024-10-13] MEDS: THIAMINE HCL 100 MG TAB PO SCH (08:12)
[2024-10-13] MEDS: MULTIVITAMIN TAB PO SCH (08:12)
--- NOTE | 2024-10-13 14:25 | Nephrology Consultation ---
Date of Consultation October 13, 2024 Assessment & Plan (1) Hyponatremia: on admission yesterday sodium was 123 which is exactly the same as 122 he had in February 2024 as an outpatient. it is worth noting that BMP with a sodium of 122 was outpatient when he was not following any fluid restriction and he was not taking any of the medications that was prescribed ( torsemide or urea ) and was drinking alcohol heavily. so this gives us a baseline that his sodium without any intervention his at around 122-- and 123. with saline Lasix and fluid restriction sodium is already up to 128. We will continue the same for another 24 hours. however much bigger challenges managing outpatient. as long as he drinks massive amount of liquid and alcohol we will not be able to keep his sodium better urine osmolarity was 539 and urine sodium was 80. This is consistent with background picture of SIADH significantly worsened by heavy alcohol/fluid intake and no oral nutrition. his sodium might be close to normal if he just follows fluid restriction and eat more protein. I do not necessarily think he needs to be on any medications. (2) Alcohol abuse: underlying issue. And seems to be very big problem. As long as it does not stop his alcohol use-- Underlying issue will not be salt Plan total time spent 62 minutes. Extensive chart review was done for both previous admission as well at this admission. Renal panel urine test done in the previous admission as well as this admission plus outpatient was reviewed History of Present Illness Reason for Consultation: hyponatremia Attending Physician: Paul Woodard MD History of Present Illness 59-year-old male with alcohol abuse who was drinking up until 5 days ago. He got admitted at the [facility] hospital 5 days ago. he was found to have low sodium and was then transferred to [facility]. patient had hyponatremia requiring hospital admission in February 2024 also. Nephrology was involved in inpatient management as well as discharge recommendation. however patient never followed up in Nephrology outpatient and never took any of the medications which included torsemide urea and fluid restriction. as per his who is present at the bedside he was drinking heavily and drinking massive amount of liquids and was not taking any of the medications. his last sodium was from February 2024 and even then it was 122 as an outpatient--- then lost to follow up. sodium on admission yesterday was 123 so pretty much same as his last outpatient sodium of 122 in February 2024. patient is not talking much but his is very tearful and wants him to be admitted in a alcohol and psych rehab place. since admission we have kept him on fluid restriction as well as Lasix and saline. With that sodium has improved and is up to 128 now. review of systems--------- patient did not tell anything. No obvious symptoms noted 12 systems reviewed, physical examination middle aged white male who is awake alert oriented x3 but he barely answers any questions mucous membrane is moist neck is supple no JVD chest bilateral clear to auscultation CVS S1 and S2 regular abdomen is soft nontender extremities without edema skin without rashes Allergies Allergy/AdvReac Type Severity Reaction Status Date / Time No Known Allergies Allergy Unverified 10/12/24 10:36 Home Medications Medication Instructions Recorded Confirmed Type losartan 100 mg tablet 100 mg PO DAILY 01/17/21 10/12/24 History Patient History Medical History Chronic insomnia Chronic hyponatremia Obstructive sleep apnea Hypertension Social History Smoking Status: Never smoker Second Hand Exposure: No; Do You Dip or Chew Tobacco: Yes; Tobacco Cessation Education Requested by Patient: No Hx Alcohol Use: Yes Alcohol type: beer Hx Substance Use: No Preferred Language: Moroccan Communication Ability: Effective 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
--- NOTE | 2024-10-13 15:01 | Psychiatric Consultation ---
Date of Consultation October 13, 2024 Impression / Recommendations Impression 59 y/o M h/o chronic hyponatremia, alcohol dependence presents from the [facility] with confusion, low sodium, recent falls with facial laceration, insomnia. Pt has been off fluid restriction and medications prior to admission. Psychiatry consulted for evaluation and safety clearance. Presentation concerning for depression and alcohol dependence. Patient is currently denying SI, is future oriented, presents a plan to abstain from alcohol. He presents limited insight into his alcohol dependence and potential for relapse. Appears to be minimizing symptoms on interview. Family history of alcohol dependence. No symptoms associated with right basal ganglia infarct identified. Gun secured from home. Labs reviewed: Sodium 128 (123 on presentation); fasting lipids, TSH, UA, blood alcohol, CBC, EKG unremarkable; CTh shows old right basal ganglia infarct. Likely recent falls, confusion, behavior at [facility] is due to acute on chronic hyponatremia in the setting of mild to moderate alcohol withdrawal. Patient refused inpatient psychiatry admission. He does not appear to be an imminent risk of harm to himself or others and does not meet criteria for a 302 involuntary hospitalization. Recommending inpatient rehab in a dual diagnosis program. Both patient and were counseled about recommendations. Patient was educated about stages of change model and need for repeated rehab stays. Overall, I spent a total of 80 minutes with this case including review of chart records, nursing report, review of lab work, direct evaluation of the patient at bedside, counseling the patient, discussion of the patient with the hospitalist provider, discussion with the psychiatric liaison during clinical rounds, and documentation in the electronic health record. (1) Depression: (2) Alcohol use disorder, moderate, dependence: (3) Chronic hyponatremia: (4) History of cerebral infarction: (5) Family history of alcohol abuse and dependence: Plan No acute psychiatric intervention at this time. No indication for bedside sitter Psychiatric C/L will provide resources for inpatient rehab Psych History Identifying Data 59 y/o M h/o chronic hyponatremia, alcohol dependence presents from the [facility] with confusion, low sodium, recent falls with facial laceration, insomnia. Pt has been off fluid restriction and medications prior to admission. Psychiatry consulted for evaluation and safety clearance. Chief Complaint "Issues starting from alcohol and financial stressors" History of Present Illness Patient seen with at bedside. Patient reports driving himself to the [facility] because "life was not worth living". Denies current SI. Wants to live for family. Reports being in [facility] rehab for alcohol dependence for 1 month in March 2024. Reports relapsing on alcohol in June drinking 4-8 light beers daily. Denies past alcohol withdrawal that involved seizures or delirium. Reports no past psychiatric diagnosis. Says he relapsed on alcohol because he thought he had control over it. Endorses fair sleep, appetite, energy, concentration. Enjoys fishing. Denies lack of self-esteem. Denies past suicide attempt. Denies past psychiatric medications. Denies other drug problems. Alcohol problem began in his 30s. confirms that guns were secured. Patient reports family history of alcohol dependence and paternal grandmother and father. History of emotional trauma. Denies history of stroke. Denies tremor, rigidity, slowed movements, trouble initiating movements, left-sided weakness, twisting movements, abnormal posturing, speech issues, changes in executive functioning. Allergies Allergy/AdvReac Type Severity Reaction Status Date / Time No Known Allergies Allergy Unverified 10/12/24 10:36 Home Medications Medication Instructions Recorded Confirmed Type losartan 100 mg tablet 100 mg PO DAILY 01/17/21 10/12/24 History Patient History Medical History Chronic insomnia Chronic hyponatremia Obstructive sleep apnea Hypertension Social History Smoking Status: Never smoker Second Hand Exposure: No; Do You Dip or Chew Tobacco: Yes; Tobacco Cessation Education Requested by Patient: No Hx Alcohol Use: Yes Alcohol type: beer Hx Substance Use: No Preferred Language: Portuguese Communication Ability: Effective Website Designer Required: No Beliefs That Will Affect Care: None Current Living Situation: Spouse Feels Safe at Home: Yes Safety Concerns: Feels Safe At This Time Assistive Devices: None Physical Exam Mental Examination: Appearance: Disheveled Eye Contact: Maintains Eye Contact Motor Behavior: Slowed Speech: Soft Mood: Euthymic and Calm Affect: Constricted Thought Process: Intact and Linear Thought Content: Intact Hallucinations: None Insight: Poor (to limited) Judgement: Poor Vital Signs (Past 24 Hours): Last Vital Signs Temp 36.5 C 10/13/24 11:47 Pulse 76 10/13/24 14:21 Resp 16 10/13/24 11:47 BP 117/81 10/13/24 11:47 Pulse Ox 97 10/13/24 11:47 O2 Del Method Room Air 10/13/24 11:47 Results & Data (PSY) Medications Administered Aspirin (Aspirin 81 Mg Ectab) 81 mg PO QAM NEVA Stop: 11/11/24 15:14 Last Admin: 10/13/24 08:12 Dose: 81 mg Documented By: Admin: 10/12/24 16:27 Dose: 81 mg Documented By: REYES Atorvastatin Calcium (Atorvastatin 40 Mg Tab) 40 mg PO QAM NEVA Stop: 11/12/24 08:59 Last Admin: 10/13/24 08:11 Dose: 40 mg Documented By: BRIGIDR Enoxaparin Sodium (Enoxaparin Inj 40 Mg/0.4 Ml Syr) 40 mg SQ Q24H NEVA Stop: 11/11/24 15:59 Last Admin: 10/12/24 16:27 Dose: 40 mg Documented By: REYES Folic Acid (Folic Acid 1 Mg Tab) 1 mg PO QA NEVA Stop: 11/12/24 08:59 Last Admin: 10/13/24 08:12 Dose: 1 mg Documented By: BRIGIDR Furosemide (Furosemide 40 Mg/4 Ml Vial) 40 mg IV BID NEVA Stop: 11/11/24 15:34 Last Admin: 10/13/24 08:17 Dose: 40 mg Documented By: Admin: 10/12/24 19:48 Dose: 40 mg Documented By: Admin: 10/12/24 16:26 Dose: 40 mg Documented By: REYES Sodium Chloride (Nss) 1,000 mls @ 80 mls/hr IV .[id number] NEVA Stop: 10/13/24 15:44 Last Infusion: 10/13/24 04:57 Dose: Infused Documented By: Admin: 10/12/24 16:27 Dose: 80 mls/hr Documented By: REYES Losartan Potassium (Losartan Potassium 50 Mg Tab) [facility] Stop: 11/11/24 13:29 Last Admin: 10/13/24 08:11 Dose: 50 mg Documented By: Admin: 10/12/24 16:26 Dose: 50 mg Documented By: REYES Multivitamins (Multivitamin Tab) 1 [facility] Stop: 11/12/24 08:59 Last Admin: 10/13/24 08:12 Dose: 1 tab Documented By: DLR Potassium Chloride (Potassium Chloride Crtab 20 Meq Tabcr) 40 meq PO QAM NEVA Stop: 11/11/24 15:44 Last Admin: 10/13/24 08:16 Dose: 40 meq Documented By: Admin: 10/12/24 16:26 Dose: 40 meq Documented By: REYES Thiamine HCl (Thiamine Hcl 100 Mg Tab) 100 mg PO QAM NEVA Stop: 11/12/24 08:59 Last Admin: 10/13/24 08:12 Dose: 100 mg Documented By: DLR [place] [address] IN/OBS CONSULT LVL 5,80M Patient Type New History Detailed Exam Detailed Medical Decision Making High Complexity Diagnoses Depression F32.A Alcohol use disorder, moderate, dependence F10.20 Chronic hyponatremia E87.1 History of cerebral infarction Z86.73 Family history of alcohol abuse and dependence Z81.1
[2024-10-13 15:45] LABS: Calcium 8.6 mg/dl (8.6-10.3); Creatinine Clr Calc Pharmacy 62.5 ml/min; Potassium 4.2 mmol/L (3.5-5.1)
[2024-10-13] MEDS: chlordiazePOXIDE HCl 25 MG CAP PO SCH (15:52)
[2024-10-13] MEDS: ACETAMINOPHEN 325 MG TAB PO PRN (15:52)
--- NOTE | 2024-10-13 18:08 | Hospitalist Progress Note ---
Date of Service October 13, 2024 Assessment & Plan (1) Confusion: (2) Acute hyponatremia: (3) SIADH (syndrome of inappropriate ADH production): Plan per previous hospitalist notes with addendum: Mr. Crowell is a 59 year old gentleman with past medical history remarkable for hypertension, alcohol abuse, SIADH presented to [facility] ED due to episode of confusion and admitted for acute on chronic hyponatremia. Patient has been noncompliant with previous recommendations. Confusion potentially related to combination of sodium however, I suspect more chronic, as well as withdrawal (though out side of 72 hours, still at risk), as well as question the chronicity of the infarct on imaging. #Intermittent confusion, suspect multifactorial #Alcohol Use disorder #Recent suicidal ideation Sodium potential contributor, but likely in the 120s given reports "months" of med noncompliance and etoh use; recent cessation of Etoh 2/2 confinement at [facility] Will start AWSS and Librium for withdrawal with ativan prn Psych consult as patient does not wish to return to [facility] Neuro check q4h while monitoring below thiamine/folate started 10/13 Awake and oriented x 3, calm and cooperative No signs of overt alcohol withdrawal Continue Librium protocol Evaluated by psych service No indication for inpatient psych treatment Will need rehab #Acute on chronic hyponatremia iso known SIADH/noncompliance appears euvolemic Previously recommended to continue urea 15gm BID; torsemide 20mg daily with KCL 20meq; Never followed up with Nephrology, reports not maintain FR Sodium on admission 122, osmo 256, Uric Acid 5.4, TSH WNL - ADH present: uOsm > 150 (300-500): 539 Plan to follow BMP q 4 for 24 hours - Max rate 6-8MeQ over 24 hours--Goal 128-130 by 1300 10/13/2024 Nephrology consulted FR 1.5L strict I&Os Urea ordered, however, not on formulary at this time Discussed with Dr. Ugalde over phone -Start IV NS @80cc/hr and IV lasix 40mg BID while maintaining oral restriction 10/13 Sodium improved from 122, now 133 Nephrology service on board Continue Lasix 40 mg IV Fluid restriction IV fluids discontinued #Old infarct, Right basal ganglia not clear when this may have occurred, no focal deficits on exam Will start asa and statin Lipid panel in am question if contributing to presentation possibly 10/13 Obtain echocardiogram Monitor on telemetry Will need Zio patch Will need strict risk factor control including alcohol intake, smoking, hypertension #Mechanical fall #scalp laceration no signs of superficial infection, well approximated PT/OT ordered 10/13 Still reporting right-sided rib pain, 7 out of 10 Check X-ray to rule out fracture, if negative CT chest #Hypertension not actively taking losartan any more will resume at half dose of prior script--50mg losartan daily, increase as tolerated -- BP within normal range so far monitor DVT lovenox Disposition Inpatient alcohol rehab plan of care discussed with patient and his , son in detail and at length all questions answered they are understanding, agreeable, comfortable with the plan of care Admission and Anticipated Discharge Date Admission Date: October 12, 2024 Subjective Follow-up for alcohol withdrawal, depression, hyponatremia, etc. Seen resting in bed, with patient's and son at the bedside visiting States he feels okay overall today Having right sided rib pain, 7 out of 10, sharp No shortness of breath, dizziness, abdominal pain, nausea vomiting Denies tremors, anxiety, hallucinations, sweating No other new symptoms Review of Systems Review of Systems: all noted and negative except for above Physical Exam Physical Exam: General- oriented x 3, not in distress, speaks in sentences with no effort or accessory muscle use Eyes- anicteric Neck- no JVD Lungs- clear breath sounds bilaterally, no rales/wheezes Positive mild tenderness on the right lateral rib area, no hematoma Heart- normal rate, regular rhythm; no murmurs Abdomen- normal bowel sounds, nondistended, soft, nontender Extremities- no pretibial edema, no calf tenderness Neuro- alert, oriented x 3; no gross focal neurologic deficits Skin- warm & dry Results & Data Results & Data Vital Signs (Past 12 Hours) Vital Signs Temp Pulse Pulse Resp BP Pulse Ox O2 Del Method 10/13/24 15:51 36.5 C 75 18 125/82 97 Room Air 10/13/24 14:21 76 10/13/24 11:47 36.5 C 77 16 117/81 97 Room Air 10/13/24 09:14 68 10/13/24 07:56 36.5 C 74 16 138/88 96 Room Air all noted and reviewed including below
[2024-10-13] MEDS ORDERED: KETOROLAC 30 MG/ML VIAL IV PRN (18:37)
--- NOTE | 2024-10-13 19:36 | XRay Report ---
Clinical History: Pain. 4 views of the right ribs are submitted for review. Findings: There is an apparent mildly displaced fracture of the right anterior ninth rib. There are also suspected fractures of the right anterior seventh and eighth ribs No other definite fracture is seen. No focal osseous lesion is evident. No other osseous abnormality is identified. There are no radiopaque foreign bodies. Impression: Fractures of the right anterior seventh, eighth, and ninth ribs ACT 112: Positive. There are findings on this exam that require communication between the performing entity and the patient following Patient Test Result Information Act ([place] ACT 112) guidelines. Electronically signed by Ankit Vogel 10-13-2024 7:33 PM
[2024-10-13] MEDS: LIDOCAINE 5% 1 PATCH TD SCH (19:41)
[2024-10-13] MEDS: MELATONIN 3 MG TAB PO PRN (19:54)
[2024-10-14 07:19] LABS: Basophils # (auto) 0.03 K/uL (0.00-0.20); Basophils % (auto) 0.7 %; Eosinophils # (auto) 0.15 K/uL (0.00-0.50); Eosinophils % (auto) 3.5 %; Hematocrit (blood only) 39.3 % (42.0-52.0); Hemoglobin 14.1 g/dl (14.0-18.0); Immature Granulocytes # (auto) 0.03 K/uL (0.01-0.20); Immature Granulocytes % (auto) 0.7 %; Lymphocytes # (auto) 1.76 K/uL (1.20-3.40); Lymphocytes % (auto) 40.7 %; Mean Corpuscular Hemoglobin 32.9 pg (25.0-34.0); Mean Corpuscular Hgb Conc 35.9 g/dL (32.0-36.0); Mean Corpuscular Volume 91.6 fL (80.0-100.0); Mean Platelet Volume 9.5 fL (9.4-12.4); Monocytes # (auto) 0.67 K/uL (0.11-0.59); Monocytes % (auto) 15.5 %; Neutrophils # (auto) 1.68 K/uL (1.40-6.50); Neutrophils % (auto) 38.9 %; Platelet Count 197 K/uL (130-400); RDW Coefficient of Variation 13.3 % (11.5-14.5); RDW Standard Deviation 44.4 fL (36.4-46.3); Red Blood Count 4.29 M/uL (4.70-6.10); White Blood Count 4.32 K/ul (4.8-10.8)
[2024-10-14 07:49] LABS: Albumin Globulin Ratio 1.6 (0.9-2); Albumin Level 4.1 gm/dl (3.4-5.0); BUN Creatinine Ratio 21.1 (10-20); Bilirubin,Total 0.5 mg/dl (0.2-1.0); Calcium 8.9 mg/dl (8.6-10.3); Creatinine Clr Calc Pharmacy 95.8 ml/min; Globulin 2.6 gm/dl (2.5-4.0); Magnesium 1.8 mg/dl (1.7-2.4); Phosphorus 4.1 mg/dl (2.5-4.9); Potassium 3.9 mmol/L (3.5-5.1); Total Protein 6.7 gm/dl (6.0-8.3)
--- NOTE | 2024-10-14 10:40 | Nephrology Progress Note ---
Date of Service October 14, 2024 Assessment & Plan Admission and Anticipated Discharge Date Admission Date: October 12, 2024 Subjective Assessment & Plan (1) Hyponatremia: on admission yesterday sodium was 123 which is exactly the same as 122 he had in February 2024 as an outpatient. it is worth noting that BMP with a sodium of 122 was outpatient when he was not following any fluid restriction and he was not taking any of the medications that was prescribed ( torsemide or urea ) and was drinking alcohol heavily. so this gives us a baseline that his sodium without any intervention his at around 122-- and 123. with saline Lasix and fluid restriction sodium is already up to 131. We will continue iv lasix + NS for another 24 hours ( 1000 Ml ) . na dropped to 131 from 131 as soon as we stopped NS however much bigger challenges managing outpatient. as long as he drinks massive amount of liquid and alcohol we will not be able to keep his sodium better urine osmolarity was 539 and urine sodium was 80. This is consistent with background picture of SIADH significantly worsened by heavy alcohol/fluid intake and no oral nutrition. his sodium might be close to normal if he just follows fluid restriction and eat more protein. I do not necessarily think he needs to be on any medications. (2) Alcohol abuse: underlying issue. And seems to be very big problem. As long as it does not stop his alcohol use-- Underlying issue will not be salt S--No new issues. Na rising nicely. Did see Psych. physical examination middle aged white male who is awake alert oriented x3 but he barely answers any questions mucous membrane is moist neck is supple no JVD chest bilateral clear to auscultation CVS S1 and S2 regular abdomen is soft nontender extremities without edema skin without rashes Results & Data Vital Signs (Past 12 Hours) Vital Signs Temp Pulse Pulse Resp BP Pulse Ox O2 Del Method 10/14/24 09:24 68 10/14/24 07:09 36.4 C L 66 20 125/84 98 Room Air 10/14/24 02:45 36.7 C 83 18 140/53 L 98 Room Air 10/13/24 22:48 36.6 C 72 17 133/88 96 Room Air
[2024-10-14] MEDS: SODIUM CHLORIDE 0.9% 1,000 ML IV SCH (10:50)
[2024-10-14] MEDS: chlordiazePOXIDE HCl 25 MG CAP PO SCH (15:54)
--- NOTE | 2024-10-14 17:09 | Hospitalist Progress Note ---
Date of Service October 14, 2024 Assessment & Plan (1) Confusion: (2) Acute hyponatremia: (3) SIADH (syndrome of inappropriate ADH production): Plan Mr. Crowell is a 59 year old gentleman with past medical history remarkable for hypertension, alcohol abuse, SIADH presented to [facility] ED due to episode of confusion and admitted for acute on chronic hyponatremia. Patient has been noncompliant with previous recommendations. Confusion potentially related to combination of sodium however, I suspect more chronic, as well as withdrawal (though out side of 72 hours, still at risk), as well as question the chronicity of the infarct on imaging. #Intermittent confusion, suspect multifactorial #Alcohol Use disorder #Recent suicidal ideation Sodium potential contributor, but likely in the 120s given reports "months" of med noncompliance and etoh use; recent cessation of Etoh 2/[address] [facility] Will start AWSS and Librium for withdrawal with ativan prn Psych consult as patient does not wish to return to [facility] under 201 Neuro check q4h while monitoring below thiamine/folate started Plan: -medically stable for psych/rehab placement #Acute on chronic hyponatremia iso known SIADH/noncompliance appears euvolemic Previously recommended to continue urea 15gm BID; torsemide 20mg daily with KCL 20meq; Never followed up with Nephrology, reports not maintain FR Sodium on admission 122, osmo 256, Uric Acid 5.4, TSH WNL - ADH present: uOsm > 150 (300-500): 539 Plan to follow BMP q 4 for 24 hours - Max rate 6-8MeQ over 24 hours--Goal 128-130 by 1300 10/13/2024 Nephrology consulted FR 1.5L strict I&Os Urea ordered, however, not on formulary at this time Plan: -sodium relatively stable at this time -appreciate nephrology assistance #Old infarct, Right basal ganglia not clear when this may have occurred, no focal deficits on exam Will start asa and statin Lipid panel in am question if contributing to presentation possibly Plan: Will need Zio patch Will need strict risk factor control including alcohol intake, smoking, hypertension #Mechanical fall #scalp laceration no signs of superficial infection, well approximated PT/OT ordered 10/13 Still reporting right-sided rib pain, 7 out of 10 Check X-ray to rule out fracture, if negative CT chest #Hypertension not actively taking losartan any more will resume at half dose of prior script--50mg losartan daily, increase as tolerated -- BP within normal range so far monitor I spent a total of 40 minutes in direct patient care, including [id number] time with the patient and/or family, reviewing medical records, ordering and reviewing diagnostic tests, and coordinating care with other healthcare providers. This time includes: history taking, physical examination, medical decision making, counseling, ECG interpretation, imaging interpretation, lab interpretation, orders, and education, excluding time spent in the performance of separately billed services. Admission and Anticipated Discharge Date Admission Date: October 12, 2024 Subjective Patient seen and examined at bedside. Mr. Crowell is doing ok today. He states he feels much better. States he is motivated to stay sober and wants rehab assistance. Review of Systems Review of Systems: CONSTITUTIONAL: Patient denies fevers, chills, sweats and weight changes. EYES: Patient denies any visual symptoms. EARS, NOSE, AND THROAT: No difficulties with hearing. No symptoms of rhinitis or sore throat. CARDIOVASCULAR: Patient denies chest pains, palpitations, orthopnea and paroxysmal nocturnal dyspnea. RESPIRATORY: No dyspnea on exertion, no wheezing or cough. GI: No nausea, vomiting, diarrhea, constipation, abdominal pain, hematochezia or melena. : No urinary hesitancy or dribbling. No nocturia or urinary frequency. No abnormal urethral discharge. MUSCULOSKELETAL: No myalgias or arthralgias. NEUROLOGIC: No chronic headaches, no seizures. Patient denies numbness, tingling or weakness. PSYCHIATRIC: Patient denies problems with mood disturbance. No problems with anxiety. ENDOCRINE: No excessive urination or excessive thirst. DERMATOLOGIC: Patient denies any rashes or skin changes. Physical Exam Physical Exam: Gen: A&O 3 NAD HEENT: NCAT, EOMI, not icteric. External ears normal. No rhinorrhea. Moist mucous membranes. Neck: Supple, full range of motion, no observable masses, No meningeal sign. Lungs: No Respiratory distress. CV: RRR, no edema. Abdomen: Soft, nondistended, No rebound tenderness. MSK: No joint swelling, no redness. Skin: No rashes, petechiae, lesions. Normal color per patient. Neuro: Normal Gait, Grossly intact. Psych: Appropriate for situation. Results & Data Results & Data Vital Signs (Past 12 Hours) Vital Signs Temp Pulse Pulse Resp BP Pulse Ox O2 Del Method 10/14/24 15:11 36.4 C L 80 24 111/77 96 Room Air 10/14/24 14:11 76 10/14/24 10:46 36.3 C L 76 13 112/76 96 Room Air 10/14/24 09:24 68 10/14/24 07:09 36.4 C L 66 20 125/84 98 Room Air Laboratory Results -personally reviewed, sodium relatively stable Medications Administered Acetaminophen (Acetaminophen 325 Mg Tab) 650 mg PO Q4H PRN PRN Reason: Pain or Fever Stop: 11/11/24 14:40 Last Admin: 10/13/24 15:52 Dose: 650 mg Documented By: BRIGIDR Aspirin (Aspirin 81 Mg Ectab) [facility] Stop: 11/11/24 15:14 Last Admin: 10/14/24 07:27 Dose: 81 mg Documented By: Admin: 10/13/24 08:12 Dose: 81 mg Documented By: Admin: 10/12/24 16:27 Dose: 81 mg Documented By: REYES Atorvastatin Calcium (Atorvastatin 40 Mg Tab) 40 mg PO [facility] Stop: 11/12/24 08:59 Last Admin: 10/14/24 07:27 Dose: 40 mg Documented By: Admin: 10/13/24 08:11 Dose: 40 mg Documented By: NICKOLAS Chlordiazepoxide HCl (Chlordiazepoxide Hcl 25 Mg Cap) 25 mg PO Q8H [facility] Stop: 10/15/24 08:46 Last Admin: 10/14/24 15:54 Dose: 25 mg Documented By: BRIGIDR Enoxaparin Sodium (Enoxaparin Inj 40 Mg/0.4 Ml Syr) 40 mg SQ Q24H [facility] Stop: 11/11/24 15:59 Last Admin: 10/14/24 15:54 Dose: 40 mg Documented By: Admin: 10/13/24 15:52 Dose: 40 mg Documented By: Admin: 10/12/24 16:27 Dose: 40 mg Documented By: REYES Folic Acid (Folic Acid 1 Mg Tab) [facility] Stop: 11/12/24 08:59 Last Admin: 10/14/24 07:28 Dose: 1 mg Documented By: Admin: 10/13/24 08:12 Dose: 1 mg Documented By: NICKOLAS Furosemide (Furosemide 40 Mg/4 Ml Vial) 40 mg IV BID [facility] Stop: 11/11/24 15:34 Last Admin: 10/14/24 07:33 Dose: 40 mg Documented By: Admin: 10/13/24 19:45 Dose: 40 mg Documented By: Admin: 10/13/24 08:17 Dose: 40 mg Documented By: Admin: 10/12/24 19:48 Dose: 40 mg Documented By: Admin: 10/12/24 16:26 Dose: 40 mg Documented By: REYES Sodium Chloride (Nss) 1,000 mls @ 80 mls/hr IV .[id number] [facility] Stop: 10/14/24 23:14 Last Admin: 10/14/24 10:50 Dose: 80 mls/hr Documented By: NICKOLAS Lidocaine (Lidocaine 5% 1 Patch) 1 patch TD QAM [facility] Stop: 11/12/24 18:44 Last Admin: 10/14/24 10:06 Dose: 1 patch Documented By: Admin: 10/13/24 19:41 Dose: 1 patch Documented By: YARI Losartan Potassium (Losartan Potassium 50 Mg Tab) 50 mg PO QAM [facility] Stop: 11/11/24 13:29 Last Admin: 10/14/24 07:27 Dose: 50 mg Documented By: Admin: 10/13/24 08:11 Dose: 50 mg Documented By: Admin: 10/12/24 16:26 Dose: 50 mg Documented By: REYES Melatonin (Melatonin 3 Mg Tab) 3 mg PO HS PRN PRN Reason: Sleep Stop: 11/12/24 18:36 Last Admin: 10/13/24 19:54 Dose: 3 mg Documented By: YARI Miscellaneous (Remove Lidoderm Patch) 1 each N/A DAILY@2100 [facility] Stop: 11/12/24 20:59 Last Admin: 10/13/24 19:45 Dose: Not Given Documented By: YARI Multivitamins (Multivitamin Tab) 1 tab PO QAM [facility] Stop: 11/12/24 08:59 Last Admin: 10/14/24 07:27 Dose: 1 tab Documented By: Admin: 10/13/24 08:12 Dose: 1 tab Documented By: NICKOLAS Potassium Chloride (Potassium Chloride Crtab 20 Meq Tabcr) 40 meq PO QAM [facility] Stop: 11/11/24 15:44 Last Admin: 10/14/24 07:36 Dose: 40 meq Documented By: Admin: 10/13/24 08:16 Dose: 40 meq Documented By: Admin: 10/12/24 16:26 Dose: 40 meq Documented By: REYES Thiamine HCl (Thiamine Hcl 100 Mg Tab) 100 mg PO QAM [facility] Stop: 11/12/24 08:59 Last Admin: 10/14/24 07:28 Dose: 100 mg Documented By: Admin: 10/13/24 08:12 Dose: 100 mg Documented By: BRIGIDR
--- NOTE | 2024-10-15 10:35 | Nephrology Progress Note ---
Date of Service October 15, 2024 Assessment & Plan Admission and Anticipated Discharge Date Admission Date: October 12, 2024 Subjective Assessment & Plan (1) Hyponatremia: on admission yesterday sodium was 123 which is exactly the same as 122 he had in February 2024 as an outpatient. it is worth noting that LUCIEN with a sodium of 122 was outpatient when he was not following any fluid restriction and he was not taking any of the medications that was prescribed ( torsemide or urea ) and was drinking alcohol heavily. so this gives us a baseline that his sodium without any intervention his at around 122-- and 123. While inpt----with Normal saline + Lasix and fluid restriction sodium is already up to 131--133 na dropped to 131 from 131 as soon as we stopped NS and then I did give him 1000 ml --no labs from today yet. Ordered renal panel urgent Will decide about hyponatremia management after lab results come back. however much bigger challenges managing outpatient. as long as he drinks massive amount of liquid and alcohol we will not be able to keep his sodium better urine osmolarity was 539 and urine sodium was 80. This is consistent with background picture of SIADH significantly worsened by heavy alcohol/fluid intake and no oral nutrition. his sodium might be close to normal if he just follows fluid restriction and e at more protein. I do not necessarily think he needs to be on any medications. (2) Alcohol abuse: underlying issue. And seems to be very big problem. As long as it does not stop his alcohol use-- Underlying issue will not be salt S--No new issues. Na rising nicely. No labs today yet. Did see Psych. physical examination middle aged white male who is awake alert oriented x3 but he barely answers any questions mucous membrane is moist neck is supple no JVD chest bilateral clear to auscultation CVS S1 and S2 regular abdomen is soft nontender extremities without edema skin without rashes Results & Data Vital Signs (Past 12 Hours) Vital Signs Temp Pulse Resp BP Pulse Ox O2 Del Method 10/15/24 07:28 36.3 C L 66 20 121/80 99 Room Air 10/15/24 03:33 36.3 C L 69 20 108/72 96 Room Air 10/14/24 23:47 36.5 C 74 20 124/75 96 Room Air
[2024-10-15 12:49] LABS: Albumin Level 4.6 gm/dl (3.4-5.0); BUN Creatinine Ratio 19.4 (10-20); Calcium 9.8 mg/dl (8.6-10.3); Creatinine Clr Calc Pharmacy 83.7 ml/min; Phosphorus 4.2 mg/dl (2.5-4.9); Potassium 4.1 mmol/L (3.5-5.1)
--- NOTE | 2024-10-15 16:56 | Hospitalist Progress Note ---
Date of Service October 15, 2024 Assessment & Plan (1) Confusion: (2) Acute hyponatremia: (3) SIADH (syndrome of inappropriate ADH production): Plan Mr. Crowell is a 59 year old gentleman with past medical history remarkable for hypertension, alcohol abuse, SIADH presented to [facility] ED due to episode of confusion and admitted for acute on chronic hyponatremia. Patient has been noncompliant with previous recommendations. Confusion potentially related to combination of sodium however, I suspect more chronic, as well as withdrawal (though out side of 72 hours, still at risk), as well as question the chronicity of the infarct on imaging. #Alcohol Use disorder #Recent suicidal ideation #R/o Wernicke Korsakoff Syndrome Sodium potential contributor, but likely in the 120s given reports "months" of med noncompliance and etoh use; recent cessation of Etoh 2/2 confinement at [facility] Will start AWSS and Librium for withdrawal with ativan prn Psych consult as patient does not wish to return to [facility] under 201 Neuro check q4h while monitoring below thiamine/folate started -concern for mild Wernicke Korsakoff syndrome from significant alcohol use, some symptoms suggestive include flat affect, personality/psychiatric changes, mild gait disturbances over past few weeks to months Plan: -medically stable for psych/rehab placement #Acute on chronic hyponatremia iso known SIADH/noncompliance appears euvolemic Previously recommended to continue urea 15gm BID; torsemide 20mg daily with KCL 20meq; Never followed up with Nephrology, reports not maintain FR Sodium on admission 122, osmo 256, Uric Acid 5.4, TSH WNL - ADH present: uOsm > 150 (300-500): 539 Plan to follow BMP q 4 for 24 hours - Max rate 6-8MeQ over 24 hours--Goal 128-130 by 1300 10/13/2024 Nephrology consulted FR 1.5L strict I&Os Plan: -sodium relatively stable at this time -appreciate nephrology assistance #Old infarct, Right basal ganglia not clear when this may have occurred, no focal deficits on exam Will start asa and statin Lipid panel in am question if contributing to presentation possibly Plan: -Will need Zio patch -Will need strict risk factor control including alcohol intake, smoking, hypertension #Mechanical fall #scalp laceration -no signs of superficial infection, well approximated -PT/OT ordered #Hypertension not actively taking losartan any more will resume at half dose of prior script--50mg losartan daily, increase as tolerated -BP within normal range so far monitor I spent a total of 55 minutes in direct patient care, including [id number] time with the patient and/or family, reviewing medical records, ordering and reviewing diagnostic tests, and coordinating care with other healthcare providers. This time includes: history taking, physical examination, medical decision making, counseling, ECG interpretation, imaging interpretation, lab interpretation, orders, and education, excluding time spent in the performance of separately billed services. Admission and Anticipated Discharge Date Admission Date: October 12, 2024 Subjective Patient seen and examined at bedside. Patient doing well today. States he feels ready to go to rehab. Long discussion with patient, , friend with permission of patient at the bedside. We discussed the concern that he is starting to develop Wernicke Korsakoff syndrome based off of his his worsening psychiatric conditions, worsen ing mentation, slightly worsening mobility. Discussed that alcohol cessation is crucial to prevent worsening of disease. Discussed that stopping alcohol use is extremely important at this point. They were appreciative of the update. Review of Systems Review of Systems: CONSTITUTIONAL: Patient denies fevers, chills, sweats and weight changes. EYES: Patient denies any visual symptoms. EARS, NOSE, AND THROAT: No difficulties with hearing. No symptoms of rhinitis or sore throat. CARDIOVASCULAR: Patient denies chest pains, palpitations, orthopnea and paroxysmal nocturnal dyspnea. RESPIRATORY: No dyspnea on exertion, no wheezing or cough. GI: No nausea, vomiting, diarrhea, constipation, abdominal pain, hematochezia or melena. : No urinary hesitancy or dribbling. No nocturia or urinary frequency. No abnormal urethral discharge. MUSCULOSKELETAL: No myalgias or arthralgias. NEUROLOGIC: No chronic headaches, no seizures. Patient denies numbness, tingling or weakness. PSYCHIATRIC: Patient denies problems with mood disturbance. No problems with anxiety. ENDOCRINE: No excessive urination or excessive thirst. DERMATOLOGIC: Patient denies any rashes or skin changes. Physical Exam Physical Exam: Gen: A&O 3 NAD HEENT: NCAT, EOMI, not icteric. External ears normal. No rhinorrhea. Moist mucous membranes. Neck: Supple, full range of motion, no observable masses, No meningeal sign. Lungs: No Respiratory distress. CV: RRR, no edema. Abdomen: Soft, nondistended, No rebound tenderness. MSK: No joint swelling, no redness. Skin: No rashes, petechiae, lesions. Normal color per patient. Neuro: Normal Gait, Grossly intact. Psych: Appropriate for situation. Results & Data Results & Data Vital Signs (Past 12 Hours) Vital Signs Temp Pulse Pulse Resp BP Pulse Ox O2 Del Method 10/15/24 15:20 36.4 C L 77 20 104/73 95 Room Air 10/15/24 14:00 78 10/15/24 10:46 36.5 C 79 22 104/71 96 Room Air 10/15/24 07:28 36.3 C L 66 20 121/80 99 Room Air Laboratory Results -personally reviewed, Na of 134 improved post fluids Medications Administered Acetaminophen (Acetaminophen 325 Mg Tab) 650 mg PO Q4H PRN PRN Reason: Pain or Fever Stop: 11/11/24 14:40 Last Admin: 10/13/24 15:52 Dose: 650 mg Documented By: NICKOLAS Aspirin (Aspirin 81 Mg Ectab) 81 mg PO [facility] Stop: 11/11/24 15:14 Last Admin: 10/15/24 08:16 Dose: 81 mg Documented By: Admin: 10/14/24 07:27 Dose: 81 mg Documented By: Admin: 10/13/24 08:12 Dose: 81 mg Documented By: Admin: 10/12/24 16:27 Dose: 81 mg Documented By: REYES Atorvastatin Calcium (Atorvastatin 40 Mg Tab) 40 mg PO [facility] Stop: 11/12/24 08:59 Last Admin: 10/15/24 08:16 Dose: 40 mg Documented By: Admin: 10/14/24 07:27 Dose: 40 mg Documented By: Admin: 10/13/24 08:11 Dose: 40 mg Documented By: NICKOLAS Enoxaparin Sodium (Enoxaparin Inj 40 Mg/0.4 Ml Syr) 40 mg SQ Q24H [facility] Stop: 11/11/24 15:59 Last Admin: 10/14/24 15:54 Dose: 40 mg Documented By: Admin: 10/13/24 15:52 Dose: 40 mg Documented By: Admin: 10/12/24 16:27 Dose: 40 mg Documented By: REYES Folic Acid (Folic Acid 1 Mg Tab) 1 mg PO QAM [facility] Stop: 11/12/24 08:59 Last Admin: 10/15/24 08:16 Dose: 1 mg Documented By: Admin: 10/14/24 07:28 Dose: 1 mg Documented By: Admin: 10/13/24 08:12 Dose: 1 mg Documented By: NICKOLAS Lidocaine (Lidocaine 5% 1 Patch) 1 patch TD QAM [facility] Stop: 11/12/24 18:44 Last Admin: 10/15/24 08:12 Dose: 1 patch Documented By: Admin: 10/14/24 10:06 Dose: 1 patch Documented By: Admin: 10/13/24 19:41 Dose: 1 patch Documented By: YARI Losartan Potassium (Losartan Potassium 50 Mg Tab) 50 mg PO QAM [facility] Stop: 11/11/24 13:29 Last Admin: 10/15/24 08:16 Dose: 50 mg Documented By: Admin: 10/14/24 07:27 Dose: 50 mg Documented By: Admin: 10/13/24 08:11 Dose: 50 mg Documented By: Admin: 10/12/24 16:26 Dose: 50 mg Documented By: REYES Melatonin (Melatonin 3 Mg Tab) 3 mg PO HS PRN PRN Reason: Sleep Stop: 11/12/24 18:36 Last Admin: 10/14/24 19:54 Dose: 3 mg Documented By: Admin: 10/13/24 19:54 Dose: 3 mg Documented By: YARI Miscellaneous (Remove Lidoderm Patch) 1 each N/A DAILY@2100 [facility] Stop: 11/12/24 20:59 Last Admin: 10/14/24 19:54 Dose: 1 each Documented By: Admin: 10/13/24 19:45 Dose: Not Given Documented By: YARI Multivitamins (Multivitamin Tab) 1 tab PO QAM [facility] Stop: 11/12/24 08:59 Last Admin: 10/15/24 08:16 Dose: 1 tab Documented By: Admin: 10/14/24 07:27 Dose: 1 tab Documented By: Admin: 10/13/24 08:12 Dose: 1 tab Documented By: NICKOLAS Potassium Chloride (Potassium Chloride Crtab 20 Meq Tabcr) 40 meq PO QAM [facility] Stop: 11/11/24 15:44 Last Admin: 10/15/24 08:26 Dose: 40 meq Documented By: Admin: 10/14/24 07:36 Dose: 40 meq Documented By: Admin: 10/13/24 08:16 Dose: 40 meq Documented By: Admin: 10/12/24 16:26 Dose: 40 meq Documented By: REYES Thiamine HCl (Thiamine Hcl 100 Mg Tab) 100 mg PO QAM [facility] Stop: 11/12/24 08:59 Last Admin: 10/15/24 08:16 Dose: 100 mg Documented By: Admin: 10/14/24 07:28 Dose: 100 mg Documented By: Admin: 10/13/24 08:12 Dose: 100 mg Documented By: NICKOLAS
[2024-10-16 08:19] LABS: BUN Creatinine Ratio 23.7 (10-20); Calcium 9.2 mg/dl (8.6-10.3); Creatinine Clr Calc Pharmacy 88.9 ml/min; Magnesium 1.9 mg/dl (1.7-2.4)
--- NOTE | 2024-10-16 10:05 | Nephrology Progress Note ---
Date of Service October 16, 2024 Assessment & Plan Admission and Anticipated Discharge Date Admission Date: October 12, 2024 Subjective Assessment & Plan (1) Hyponatremia: on admission yesterday sodium was 123 which is exactly the same as 122 he had in February 2024 as an outpatient. it is worth noting that BMP with a sodium of 122 was outpatient when he was not following any fluid restriction and he was not taking any of the medications that was prescribed ( torsemide or urea ) and was drinking alcohol heavily. so this gives us a baseline that his sodium without any intervention his at around 122-- and 123. While inpt----with Normal saline + Lasix and fluid restriction sodium went up to 134. So does prove that NA goes up with this combo. But cannot do this at rehab or at home. Will try torsemide 20 bid and urea-na 15 bid + FFR 1500 ml as it is possible to do this combo outside of hospital. however much bigger challenges managing outpatient. as long as he drinks massive amount of liquid and alcohol we will not be able to keep his sodium better urine osmolarity was 539 and urine sodium was 80. This is consistent with background picture of SIADH significantly worsened by heavy alcohol/fluid intake and no oral nutrition. (2) Alcohol abuse: underlying issue. And seems to be very big problem. As long as it does not stop his alcohol use-- Underlying issue will not be salt S--No new issues. Na rising nicely. Plan is for rehab placement. physical examination middle aged white male who is awake alert oriented x3 but he barely answers any questions mucous membrane is moist neck is supple no JVD chest bilateral clear to auscultation CVS S1 and S2 regular abdomen is soft nontender extremities without edema skin without rashes Results & Data Vital Signs (Past 12 Hours) Vital Signs Temp Pulse Pulse Resp BP BP Pulse Ox 10/16/24 07:12 36.4 C L 69 20 114/75 96 10/16/24 05:47 80 10/16/24 03:00 36.7 C 75 16 107/73 97 10/15/24 23:00 36.6 C 72 16 99/67 L 97 10/15/24 22:44 70 O2 Del Method 10/16/24 07:12 Room Air 10/16/24 05:47 10/16/24 03:00 Room Air 10/15/24 23:00 Room Air 10/15/24 22:44
[2024-10-16] MEDS: UREA (UREA-NA) 15 GM PACK PO SCH (10:29)
[2024-10-16] MEDS: TORSEMIDE 20 MG TAB PO SCH (10:29)
--- NOTE | 2024-10-16 16:38 | Hospitalist Progress Note ---
Date of Service October 16, 2024 Assessment & Plan (1) Confusion: (2) Acute hyponatremia: (3) SIADH (syndrome of inappropriate ADH production): Plan Mr. Crowell is a 59 year old gentleman with past medical history remarkable for hypertension, alcohol abuse, SIADH presented to [facility] ED due to episode of confusion and admitted for acute on chronic hyponatremia. Patient has been noncompliant with previous recommendations. Confusion potentially related to combination of sodium however, I suspect more chronic, as well as withdrawal (though out side of 72 hours, still at risk), as well as question the chronicity of the infarct on imaging. #Alcohol Use disorder #Recent suicidal ideation #R/o Wernicke Korsakoff Syndrome Sodium potential contributor, but likely in the 120s given reports "months" of med noncompliance and etoh use; recent cessation of Etoh 2/[address] [facility] Will start AWSS and Librium for withdrawal with ativan prn Psych consult as patient does not wish to return to [facility] under 201 Neuro check q4h while monitoring below thiamine/folate started -concern for mild Wernicke Korsakoff syndrome from significant alcohol use, some symptoms suggestive include flat affect, personality/psychiatric changes, mild gait disturbances over past few weeks to months Plan: -medically stable for psych/rehab placement #Acute on chronic hyponatremia iso known SIADH/noncompliance appears euvolemic Previously recommended to continue urea 15gm BID; torsemide 20mg daily with KCL 20meq; Never followed up with Nephrology, reports not maintain FR Sodium on admission 122, osmo 256, Uric Acid 5.4, TSH WNL - ADH present: uOsm > 150 (300-500): 539 Plan to follow BMP q 4 for 24 hours - Max rate 6-8MeQ over 24 hours--Goal 128-130 by 1300 10/13/2024 Nephrology consulted FR 1.5L strict I&Os Plan: -sodium relatively stable at this time -appreciate nephrology assistance #Old infarct, Right basal ganglia not clear when this may have occurred, no focal deficits on exam Will start asa and statin Lipid panel in am question if contributing to presentation possibly Plan: -Will need Zio patch -Will need strict risk factor control including alcohol intake, smoking, hypertension #Mechanical fall #scalp laceration -no signs of superficial infection, well approximated -PT/OT ordered #Hypertension not actively taking losartan any more will resume at half dose of prior script--50mg losartan daily, increase as tolerated -BP within normal range so far monitor I spent a total of 45 minutes in direct patient care, including [id number] time with the patient and/or family, reviewing medical records, ordering and reviewing diagnostic tests, and coordinating care with other healthcare providers. This time includes: history taking, physical examination, medical decision making, counseling, ECG interpretation, imaging interpretation, lab interpretation, orders, and education, excluding time spent in the performance of separately billed services. Admission and Anticipated Discharge Date Admission Date: October 12, 2024 Subjective Patient seen and examined at bedside. present as well. frustrated with progress on inpatient drug and alcohol rehab, discussed we are trying our best to find an accepting facility. Patient states he feels fine at this time. Review of Systems Review of Systems: CONSTITUTIONAL: Patient denies fevers, chills, sweats and weight changes. EYES: Patient denies any visual symptoms. EARS, NOSE, AND THROAT: No difficulties with hearing. No symptoms of rhinitis or sore throat. CARDIOVASCULAR: Patient denies chest pains, palpitations, orthopnea and paroxysmal nocturnal dyspnea. RESPIRATORY: No dyspnea on exertion, no wheezing or cough. GI: No nausea, vomiting, diarrhea, constipation, abdominal pain, hematochezia or melena. : No urinary hesitancy or dribbling. No nocturia or urinary frequency. No abnormal urethral discharge. MUSCULOSKELETAL: No myalgias or arthralgias. NEUROLOGIC: No chronic headaches, no seizures. Patient denies numbness, tingling or weakness. PSYCHIATRIC: Patient denies problems with mood disturbance. No problems with anxiety. ENDOCRINE: No excessive urination or excessive thirst. DERMATOLOGIC: Patient denies any rashes or skin changes. Physical Exam Physical Exam: Gen: A&O 3 NAD HEENT: NCAT, EOMI, not icteric. External ears normal. No rhinorrhea. Moist mucous membranes. Neck: Supple, full range of motion, no observable masses, No meningeal sign. Lungs: No Respiratory distress. CV: RRR, no edema. Abdomen: Soft, nondistended, No rebound tenderness. MSK: No joint swelling, no redness. Skin: No rashes, petechiae, lesions. Normal color per patient. Neuro: Normal Gait, Grossly intact. Psych: Appropriate for situation. Results & Data Results & Data Vital Signs (Past 12 Hours) Vital Signs Temp Pulse Pulse Resp BP Pulse Ox O2 Del Method 10/16/24 15:05 36.5 C 85 16 109/74 96 Room Air 10/16/24 13:01 85 10/16/24 11:11 36.3 C L 71 17 146/84 H 98 Room Air 10/16/24 08:50 Room Air 10/16/24 07:12 36.4 C L 69 20 114/75 96 Room Air 10/16/24 05:47 80 Laboratory Results -personally reviewed, Na of 130 relatively stable from prior Medications Administered Acetaminophen (Acetaminophen 325 Mg Tab) 650 mg PO Q4H PRN PRN Reason: Pain or Fever Stop: 11/11/24 14:40 Last Admin: 10/13/24 15:52 Dose: 650 mg Documented By: NICKOLAS Aspirin (Aspirin 81 Mg Ectab) 81 mg PO [facility] Stop: 11/11/24 15:14 Last Admin: 10/16/24 08:51 Dose: 81 mg Documented By: Admin: 10/15/24 08:16 Dose: 81 mg Documented By: Admin: 10/14/24 07:27 Dose: 81 mg Documented By: Admin: 10/13/24 08:12 Dose: 81 mg Documented By: Admin: 10/12/24 16:27 Dose: 81 mg Documented By: REYES Atorvastatin Calcium (Atorvastatin 40 Mg Tab) 40 mg PO [facility] Stop: 11/12/24 08:59 Last Admin: 10/16/24 08:51 Dose: 40 mg Documented By: Admin: 10/15/24 08:16 Dose: 40 mg Documented By: Admin: 10/14/24 07:27 Dose: 40 mg Documented By: Admin: 10/13/24 08:11 Dose: 40 mg Documented By: NICKOLAS Enoxaparin Sodium (Enoxaparin Inj 40 Mg/0.4 Ml Syr) 40 mg SQ Q24H [facility] Stop: 11/11/24 15:59 Last Admin: 10/15/24 17:18 Dose: 40 mg Documented By: Admin: 10/14/24 15:54 Dose: 40 mg Documented By: Admin: 10/13/24 15:52 Dose: 40 mg Documented By: Admin: 10/12/24 16:27 Dose: 40 mg Documented By: REYES Folic Acid (Folic Acid 1 Mg Tab) 1 mg PO QAM [facility] Stop: 11/12/24 08:59 Last Admin: 10/16/24 08:51 Dose: 1 mg Documented By: Admin: 10/15/24 08:16 Dose: 1 mg Documented By: Admin: 10/14/24 07:28 Dose: 1 mg Documented By: Admin: 10/13/24 08:12 Dose: 1 mg Documented By: NICKOLAS Lidocaine (Lidocaine 5% 1 Patch) 1 patch TD QAM [facility] Stop: 11/12/24 18:44 Last Admin: 10/16/24 08:52 Dose: 1 patch Documented By: Admin: 10/15/24 08:12 Dose: 1 patch Documented By: Admin: 10/14/24 10:06 Dose: 1 patch Documented By: Admin: 10/13/24 19:41 Dose: 1 patch Documented By: YARI Losartan Potassium (Losartan Potassium 50 Mg Tab) [facility] Stop: 11/11/24 13:29 Last Admin: 10/16/24 08:51 Dose: 50 mg Documented By: Admin: 10/15/24 08:16 Dose: 50 mg Documented By: Admin: 10/14/24 07:27 Dose: 50 mg Documented By: Admin: 10/13/24 08:11 Dose: 50 mg Documented By: Admin: 10/12/24 16:26 Dose: 50 mg Documented By: REYES Melatonin (Melatonin 3 Mg Tab) 3 mg PO HS PRN PRN Reason: Sleep Stop: 11/12/24 18:36 Last Admin: 10/14/24 19:54 Dose: 3 mg Documented By: Admin: 10/13/24 19:54 Dose: 3 mg Documented By: YARI Miscellaneous (Remove Lidoderm Patch) 1 each N/A DAILY@2100 [facility] Stop: 11/12/24 20:59 Last Admin: 10/15/24 20:10 Dose: 1 each Documented By: Admin: 10/14/24 19:54 Dose: 1 each Documented By: Admin: 10/13/24 19:45 Dose: Not Given Documented By: YARI Multivitamins (Multivitamin Tab) 1 tab PO QAM [facility] Stop: 11/12/24 08:59 Last Admin: 10/16/24 08:51 Dose: 1 tab Documented By: Admin: 10/15/24 08:16 Dose: 1 tab Documented By: Admin: 10/14/24 07:27 Dose: 1 tab Documented By: Admin: 10/13/24 08:12 Dose: 1 tab Documented By: DLR Potassium Chloride (Potassium Chloride Crtab 20 Meq Tabcr) 40 meq PO QAM [facility] Stop: 11/11/24 15:44 Last Admin: 10/16/24 08:51 Dose: 40 meq Documented By: Admin: 10/15/24 08:26 Dose: 40 meq Documented By: Admin: 10/14/24 07:36 Dose: 40 meq Documented By: Admin: 10/13/24 08:16 Dose: 40 meq Documented By: Admin: 10/12/24 16:26 Dose: 40 meq Documented By: REYES Thiamine HCl (Thiamine Hcl 100 Mg Tab) 100 mg PO QAM [facility] Stop: 11/12/24 08:59 Last Admin: 10/16/24 08:51 Dose: 100 mg Documented By: Admin: 10/15/24 08:16 Dose: 100 mg Documented By: Admin: 10/14/24 07:28 Dose: 100 mg Documented By: Admin: 10/13/24 08:12 Dose: 100 mg Documented By: BRIGIDR Torsemide (Torsemide 20 Mg Tab) 20 mg PO BID [facility] Stop: 11/15/24 09:29 Last Admin: 10/16/24 10:29 Dose: 20 mg Documented By: FELICITA Urea (Urea (Urea-Na) 15 Gm Pack) 15 gm PO BID [facility] Stop: 11/15/24 09:29 Last Admin: 10/16/24 10:29 Dose: 15 gm Documented By: FELICITA
[2024-10-17 10:52] VITALS: BP 110/71; PULSE 60; RESP 20; TEMP 97.9; O2SAT 98
--- NOTE | 2024-10-17 10:57 | Nephrology Progress Note ---
Date of Service October 17, 2024 Assessment & Plan Admission and Anticipated Discharge Date Admission Date: October 12, 2024 Subjective Assessment & Plan (1) Hyponatremia: on admission yesterday sodium was 123 which is exactly the same as 122 he had in February 2024 as an outpatient. it is worth noting that LUCIEN with a sodium of 122 was outpatient when he was not following any fluid restriction and he was not taking any of the medications that was prescribed ( torsemide or urea ) and was drinking alcohol heavily. so this gives us a baseline that his sodium without any intervention his at around 122-- and 123. While inpt----with Normal saline + Lasix and fluid restriction sodium went up to 134. So does prove that NA goes up with this combo. But cannot do this at rehab or at home. Will try torsemide 20 bid and urea-na 15 bid + FFR 1500 ml as it is possible to do this combo outside of hospital. however much bigger challenges managing outpatient. as long as he drinks massive amount of liquid and alcohol we will not be able to keep his sodium better urine osmolarity was 539 and urine sodium was 80. This is consistent with background picture of SIADH significantly worsened by heavy alcohol/fluid intake and no oral nutrition. labs today is pending and will address after lab results back (2) Alcohol abuse: underlying issue. And seems to be very big problem. As long as it does not stop his alcohol use-- Underlying issue will not be salt S--No new issues. Kathya went up with IV lasix and NS. Plan is for rehab placement. physical examination middle aged white male who is awake alert oriented x3 but he barely answers any questions mucous membrane is moist neck is supple no JVD chest bilateral clear to auscultation CVS S1 and S2 regular abdomen is soft nontender extremities without edema skin without rashes Results & Data Vital Signs (Past 12 Hours) Vital Signs Temp Pulse Pulse Resp BP BP Pulse Ox 10/17/24 10:52 36.6 C 60 20 110/71 98 10/17/24 10:26 36.7 C 82 16 123/86 109/71 99 10/17/24 07:50 36.7 C 82 16 123/86 99 10/17/24 07:00 78 10/17/24 04:13 36.4 C L 74 16 115/75 95 10/17/24 00:26 78 O2 Del Method 10/17/24 10:52 Room Air 10/17/24 10:26 10/17/24 07:50 Room Air 10/17/24 07:00 10/17/24 04:13 Room Air 10/17/24 00:26
[2024-10-17 10:58] LABS: BUN Creatinine Ratio 41.2 (10-20); Calcium 9.8 mg/dl (8.6-10.3); Creatinine Clr Calc Pharmacy 72.5 ml/min; Magnesium 2.2 mg/dl (1.7-2.4); Potassium 3.9 mmol/L (3.5-5.1)
--- NOTE | 2024-10-17 17:08 | Discharge Summary ---
Discharge Summary Date of Service October 17, 2024 Principal Dx & Hospital Course #1 = Principal Diagnosis (1) Confusion: (2) Acute hyponatremia: (3) SIADH (syndrome of inappropriate ADH production): Plan Mr. Crowell is a 59 year old gentleman with past medical history remarkable for hypertension, alcohol abuse, SIADH presented to [facility] ED due to episode of confusion and admitted for acute on chronic hyponatremia. Patient has been noncompliant with previous recommendations. Confusion potentially related to combination of sodium however, I suspect more chronic, as well as withdrawal (though out side of 72 hours, still at risk), as well as question the chronicity of the infarct on imaging. #Alcohol Use disorder #Recent suicidal ideation #R/o Wernicke Korsakoff Syndrome Sodium potential contributor, but likely in the 120s given reports "months" of med noncompliance and etoh use; recent cessation of Etoh 2/[address] [facility] Will start AWSS and Librium for withdrawal with ativan prn Psych consult as patient does not wish to return to [facility] under 201 Neuro check q4h while monitoring below thiamine/folate started -concern for mild Wernicke Korsakoff syndrome from significant alcohol use, some symptoms suggestive include flat affect, personality/psychiatric changes, mild gait disturbances over past few weeks to months Plan: -medically stable for psych/rehab placement #Acute on chronic hyponatremia iso known SIADH/noncompliance appears euvolemic Previously recommended to continue urea 15gm BID; torsemide 20mg daily with KCL 20meq; Never followed up with Nephrology, reports not maintain FR Sodium on admission 122, osmo 256, Uric Acid 5.4, TSH WNL - ADH present: uOsm > 150 (300-500): 539 Plan to follow BMP q 4 for 24 hours - Max rate 6-8MeQ over 24 hours--Goal 128-130 by 1300 10/13/2024 Nephrology consulted FR 1.5L strict I&Os Plan: -sodium relatively stable at this time -appreciate nephrology assistance #Old infarct, Right basal ganglia not clear when this may have occurred, no focal deficits on exam Will start asa and statin Lipid panel in am question if contributing to presentation possibly Plan: -Will need Zio patch -Will need strict risk factor control including alcohol intake, smoking, hypertension #Mechanical fall #scalp laceration -no signs of superficial infection, well approximated -PT/OT ordered #Hypertension not actively taking losartan any more will resume at half dose of prior script--50mg losartan daily, increase as tolerated -BP within normal range so far monitor I spent a total of 45 minutes in direct patient care, including [id number] time with the patient and/or family, reviewing medical records, ordering and reviewing diagnostic tests, and coordinating care with other healthcare providers. This time includes: history taking, physical examination, medical decision making, counseling, ECG interpretation, imaging interpretation, lab interpretation, orders, and education, excluding time spent in the performance of separately billed services. Notes For Next Care Provider Mr. Crowell is a 59 year old gentleman with past medical history remarkable for hypertension, alcohol abuse, SIADH presented to [facility] ED due to episode of confus ion and admitted for acute on chronic hyponatremia. On medicine, nephrology consulted for hyponatremia, much improved on current regiment. Discussed likely Wernicke Korsakoff syndrome given worsening mentation, worsening psychiatric concerns, mobility concerns. Old stroke noted, will need zio patch from PCP. Medically stable for discharge to drug and alcohol rehab. Medication Changes From Visit -see below Admission HPI Per Admitting Provider Mr. Crowell is a 59 year old gentleman with past medical history remarkable for hypertension, alcohol abuse, SIADH presented to [facility] ED due to episode of confusion. Patient recently admitted to the [facility] under 201 given reports of suicidal ideation and admitted on 10/08--which was his last day of alcohol consumption. He reports that since the admission to [facility] he just felt "disoriented" due to lack of sleep and "being in a new location." He denies any vision changes, headaches, focal neurologic deficits. He is alert to person/place/time/situation. He states that he has not taken any of his medications for months because he hated urinating after leaving the house in the morning. He also endorses not keeping a fluid restriction. He states that he did attend a rehab for 28 days and thought it went well, however, recently he just became stressed and resumed drinking about a month ago. Of note, patient sustained a fall a "few days ago" at the [facility] resulting in a scalp laceration--patient reports this occurred again due to being unfamiliar with the location and "tripped." He overall denies any concerns. In the ED, vitals were notable for BP of 140s-170s HR of 60-70s, and O2 sat of high 90s on room air. Imaging revealed old right basal ganglia infarct EKG with poor baseline/artifact but seemingly nsr ED interventions: nothing Patient to be admitted to pcu for further evaluation and management of acute on chronic hyponatremia Discharge Exam Gen: A&O 3 NAD HEENT: NCAT, EOMI, not icteric. External ears normal. No rhinorrhea. Moist mucous membranes. Neck: Supple, full range of motion, no observable masses, No meningeal sign. Lungs: No Respiratory distress. CV: RRR, no edema. Abdomen: Soft, nondistended, No rebound tenderness. MSK: No joint swelling, no redness. Skin: No rashes, petechiae, lesions. Normal color per patient. Neuro: Normal Gait, Grossly intact. Psych: Appropriate for situation. Updated Medication List Medication Instructions Recorded Confirmed Type aspirin 81 mg tablet,delayed 81 mg PO QAM #30 tabs 10/17/24 Rx release atorvastatin 40 mg tablet 40 mg PO QAM #30 tabs 10/17/24 Rx folic acid 1 mg tablet 1 mg PO QAM #30 tabs 10/17/24 Rx losartan 50 mg tablet 50 mg PO QAM #30 tabs 10/17/24 Rx multivitamin with folic acid 400 1 tab PO QAM #30 tabs 10/17/24 Rx mcg tablet (Daily-Jean-Pierre (with folic acid)) potassium chloride 20 mEq 40 meq (2 x 20 mEq) PO QAM #30 tabs 10/17/24 Rx tablet,extended release(part/cryst) thiamine HCl (vitamin B1) 100 mg 100 mg PO QAM #30 tabs 10/17/24 Rx tablet torsemide 20 mg tablet 20 mg PO BID #30 tabs 10/17/24 Rx urea 15 gram oral powder packet 15 g PO BID #8 ea 10/17/24 Rx (Ure-Na) Hospital Stay Data Consultations 10/12/24 12:55 ED Decision to Admit Stat 10/12/24 13:04 Consult Psychiatry Routine 10/12/24 14:38 Consult Nephrology Routine Diagnostic Imagining Performed 10/12/24 09:02 CT head/brain wo con Stat Pending Results Patient Have Any Pending Studies at Discharge: Yes Discharge Instructions Given to Patient (Per Discharging Provider) 1. Please take all medications as prescribed, as it will keep your sodium up. 2. Please work hard at rehab. 3. Please follow up with nephrology and PCP. 4. Get zio patch from PCP. Total Time Total Time Spent Total Time Spent (In Minutes): I spent a total of 35 minutes in direct patient care, including [id number] time with the patient and/or family, reviewing medical records, ordering and reviewing diagnostic tests, and coordinating care with other healthcare providers. This time includes: history taking, physical examination, medical decision making, counseling, ECG interpretation, imaging interpretation, lab interpretation, orders, and education, excluding time spent in the performance of separately billed services.
== END 2024-10-17 11:37 | disposition alcohol treatment (31) | DRG 643 ==
LOC: ED 08:51 → SUATTDRO 12:59 → 2S 12:59